=== PATIENT | male | born 1965 | race Caucasian/White ===

== ENCOUNTER 2020-08-07 09:58 | Inpatient (IN) | payer OTHER ==
[2020-08-07 10:41] LABS: Basophils # (A) 0.1 k/uL (0-0.2); Basophils % (A) 1 %; Eosinophils % (A) 1 %; HCT 54.1 % (39.0-53.0); Hypochromasia Slight; Lymphocytes # (A) 1.2 k/uL (1.0-4.8); Lymphocytes % (A) 19 %; MCH 25.8 pg (25.0-35.0); MCHC 31.5 g/dL (31.0-37.0); MCV 82.1 fL (80.0-100.0); Mean Platelet Volume 7.4; Monocytes # (A) 0.6 k/uL (0-1.0); Monocytes % (A) 10 %; Neutrophils # (A) 4.3 k/uL (1.3-7.7); Neutrophils % (A) 67 %; Platelet Count 185 k/uL (150-450); RBC 6.58 m/uL (4.30-5.90); WBC 6.4 k/uL (3.8-10.6)
--- NOTE | 2020-08-07 10:43 | ED ---
URI HPI - General Source: patient Mode of arrival: ambulatory Limitations: no limitations <Anupama Ritter - Last Filed: 08/07/20 12:16> <Shellie Fitzgerald - Last Filed: 08/10/20 19:49> - General Chief Complaint: Upper Respiratory Infection Stated Complaint: Low oxygen, sent by [email or web address] Time Seen by Provider: 08/07/20 10:10 - History of Present Illness Initial Comments: very pleasant 55-year-old male presenting today for chief complaint of shortness of breath on and off x 3 weeks with cough and fevers, and hypoxia x today. Patient states that for the past 3 weeks he has had a cough general malaise bodyaches and feels like he has had a cold. Patient states he has a very productive cough with sunil brown sputum. Patient denies history of recent hospitalizations L call abuse/aspiration. Patient states he did recently have an exposure to covert but has had these symptoms for 3 weeks. Patient denies any chest pain. Deep inspiration he states he has felt slightly short of breath he denies any leg swelling calf pain he denies history of DVT or pulmonary embolism. He states he does have history of thyroid cancer that is in "remission". He denies any active treatment. Patient denies a jaw or arm pain or back pain. Patient denies abdominal pain nausea vomiting diarrhea. Patient states he was having fevers for the past 10 days but stated "they broke last night". He states he last took alleve yesterday evening, denies taking antipyretics this morning. Patient states he was on a z-pack but finished that 5 days ago and was told by PCP if symptoms persisted after the antibiotics to come to the ER. Patient went to urgent care where he had low oxygen levels and they told him he was too big for their xray and sent him to our facility. Patient on arrival is afebrile, oyxgen 88-90% on RA. He does not appear in distress, resting comfortably. (Anupama Ritter) - Related Data Home Medications Medication Instructions Recorded Confirmed Furosemide [Lasix] 20 mg PO BID 12/17/18 08/07/20 Indomethacin [Indocin] 50 mg PO TID 12/17/18 08/07/20 Levothyroxine Sodium [Synthroid] 25 mcg PO DAILY 12/17/18 08/07/20 Levothyroxine Sodium [Synthroid] 200 mcg PO DAILY 12/17/18 08/07/20 allopurinoL [Zyloprim] 300 mg PO DAILY 12/17/18 08/07/20 Naproxen Sodium [Aleve] 220 mg PO BID PRN 08/07/20 08/07/20 Previous Rx's Medication Instructions Recorded Albuterol Inhaler [Ventolin Hfa 2 puff INHALATION RT-QID PRN #1 08/09/20 Inhaler] puff Ascorbic Acid [Vitamin C] 1,000 mg PO DAILY #30 tab 08/09/20 Cholecalciferol [Vitamin D3 (25 25 mcg PO DAILY #30 tablet 08/09/20 Mcg = 1000 Iu)] Colchicine [Colcrys] 0.6 mg PO BID #14 each 08/09/20 Enoxaparin [Lovenox] 40 mg SQ DAILY #14 syringe 08/09/20 Zinc Sulfate [Orazinc] 220 mg PO DAILY #60 cap 08/09/20 dexAMETHasone [Hexadrol] 6 mg PO DAILY #14 tab 08/09/20 Allergies Allergy/AdvReac Type Severity Reaction Status Date / Time Penicillins Allergy Rash/Hives Verified 08/07/20 12:14 Review of Systems ROS Other: All systems not noted in ROS Statement are negative. <Anupama Ritter - Last Filed: 08/07/20 12:16> ROS Other: All systems not noted in ROS Statement are negative. <Shellie Fitzgerald - Last Filed: 08/10/20 19:49> ROS Statement: Those systems with pertinent positive or pertinent negative responses have been documented in the HPI. Past Medical History Past Medical History: Hypertension, Thyroid Disorder Additional Past Medical History / Comment(s): thyroid History of Any Multi-Drug Resistant Organisms: None Reported Past Surgical History: Tonsillectomy Additional Past Surgical History / Comment(s): thyroid ca - thryoidectomy Past Psychological History: No Psychological Hx Reported Smoking Status: Never smoker Past Alcohol Use History: Occasional Past Drug Use History: None Reported <Anupama Ritter - Last Filed: 08/07/20 12:16> General Exam Limitations: no limitations <Anupama Ritter - Last Filed: 08/07/20 12:16> - General Exam Comments Initial Comments: General: The patient is awake and alert, in no distress Eye: +3 mm pupils are equal, round and reactive to light, extra-ocular mov ements are intact. No nystagmus. There is normal conjunctiva bilaterally. No signs of icterus. Ears, nose, mouth and throat: There are moist mucous membranes and no oral lesions. Neck: The neck is supple, there is no tenderness or JVD. Cardiovascular: There is a regular rate and rhythm. No murmur, rub or gallop is appreciated. Respiratory: Respirations are non-labored, breath sounds are equal. No wheezes, stridor. Scattered rhonchi. Gastrointestinal: Soft, non-distended, non-tender abdomen without masses or organomegaly noted. There is no rebound or guarding present. Musculoskeletal: Normal ROM, no tenderness. Strength 5/5. Sensation intact. Radial and DP pulses equal bilaterally 2+. Neurological: A&O x 3. CN II-XII intact grossly, There are no obvious motor or sensory deficits. Coordination appears grossly intact. Speech is normal. Skin: Skin is warm and dry and no rashes or lesions are noted. No calf pain or LE edema. Psychiatric: Cooperative, appropriate mood & affect, normal judgment. (Anupama Ritter) Course Vital Signs 08/07/20 08/07/20 08/07/20 10:02 11:16 11:57 Temperature 98.6 F Pulse Rate 60 58 L Respiratory 16 20 18 Rate Blood Pressure 167/95 147/86 O2 Sat by Pulse 90 L 94 L Oximetry 08/07/20 12:32 Temperature 98.7 F Pulse Rate Respiratory Rate Blood Pressure O2 Sat by Pulse Oximetry Medical Decision Making - Lab Data Result diagrams: 08/07/20 10:30 08/07/20 10:30 <Anupama Ritter - Last Filed: 08/07/20 12:16> - Lab Data Result diagrams: 08/07/20 10:30 08/07/20 10:30 <Shellie Fitzgerald - Last Filed: 08/10/20 19:49> - Medical Decision Making Labs stable. however patient hypoxic. covid + with covid pneumonia-patient is not in any distress. Patient does have some scattered rhonchi on lung examination. There is no retractions no abdominal breathing. Given patient was saturating at 88-90% on room air feel patient should be admitted for monitoring and steroids. Patient agreeable to admission and care plan Dr Fitzgerald agreeable to care plan. Ventricular rate 63 beats minute, MD interval 168 ms, QR administration 102 ms, QT/QTC 464/474 ms. Sinus rhythm with a sinus arrhythmia. Right axis noted nonspecific ST changes no ST elevation or depression is appreciated. (Anupama Ritter) I was available for consultation in the emergency department. The history and physical exam were done by the midlevel provider. I was consulted for this patients care. I reviewed the case with the midlevel provider and based on their presentation of the patient, I agree with the assessment, medical decision making and plan of care as documented. Chart was dictated using [employer] dictation software. Attempts were made to correct any dictation errors however some typographical errors may persist. Patient was seen during a national state of emergency due to the Covid-19 pandemic. (Shellie Fitzgerald) - Lab Data Lab Results 08/07/20 08/07/20 08/07/20 Range/Units 10:30 10:30 10:30 WBC 6.4 (3.8-10.6) k/uL RBC 6.58 H (4.30-5.90) m/uL Hgb 17.0 (13.0-17.5) gm/dL Hct 54.1 H (39.0-53.0) % MCV 82.1 (80.0-100.0) fL MCH 25.8 (25.0-35.0) pg MCHC 31.5 (31.0-37.0) g/dL RDW 15.0 (11.5-15.5) % Plt Count 185 (150-450) k/uL MPV 7.4 Neutrophils % 67 % Lymphocytes % 19 % Monocytes % 10 % Eosinophils % 1 % Basophils % 1 % Neutrophils # 4.3 (1.3-7.7) k/uL Lymphocytes # 1.2 (1.0-4.8) k/uL Monocytes # 0.6 (0-1.0) k/uL Eosinophils # 0.0 (0-0.7) k/uL Basophils # 0.1 (0-0.2) k/uL Hypochromasia Slight PT 11.0 (9.0-12.0) sec INR 1.0 (<1.2) APTT 25.0 (22.0-30.0) sec D-Dimer 1.00 H (<0.60) mg/L FEU Sodium 142 (137-145) mmol/L Potassium 4.3 (3.5-5.1) mmol/L Chloride 104 (98-107) mmol/L Carbon Dioxide 27 (22-30) mmol/L Anion Gap 11 mmol/L BUN 20 (9-20) mg/dL Creatinine 1.07 (0.66-1.25) mg/dL Est GFR (CKD-EPI)AfAm >90 (>60 ml/min/1.73 sqM) Est GFR (CKD-EPI)NonAf 78 (>60 ml/min/1.73 sqM) Glucose 103 H (74-99) mg/dL Plasma Lactic Acid Radames (0.7-2.0) mmol/L Calcium 7.6 L (8.4-10.2) mg/dL Magnesium 1.8 (1.6-2.3) mg/dL Ferritin 181.0 (22.0-322.0) ng/mL Total Bilirubin 0.7 (0.2-1.3) mg/dL AST 32 (17-59) U/L ALT 18 (4-49) U/L Alkaline Phosphatase 84 (38-126) U/L Lactate Dehydrogenase 889 H (313-618) U/L C-Reactive Protein 148.5 H (<10.0) mg/L Total Protein 6.6 (6.3-8.2) g/dL Albumin 3.4 L (3.5-5.0) g/dL Procalcitonin (0.02-0.09) ng/mL Coronavirus (PCR) (Not Detectd) 08/07/20 08/07/20 08/07/20 Range/Units 10:30 10:30 10:30 WBC (3.8-10.6) k/uL RBC (4.30-5.90) m/uL Hgb (13.0-17.5) gm/dL Hct (39.0-53.0) % MCV (80.0-100.0) fL MCH (25.0-35.0) pg MCHC (31.0-37.0) g/dL RDW (11.5-15.5) % Plt Count (150-450) k/uL MPV Neutrophils % % Lymphocytes % % Monocytes % % Eosinophils % % Basophils % % Neutrophils # (1.3-7.7) k/uL Lymphocytes # (1.0-4.8) k/uL Monocytes # (0-1.0) k/uL Eosinophils # (0-0.7) k/uL Basophils # (0-0.2) k/uL Hypochromasia PT (9.0-12.0) sec INR (<1.2) APTT (22.0-30.0) sec D-Dimer (<0.60) mg/L FEU Sodium (137-145) mmol/L Potassium (3.5-5.1) mmol/L Chloride (98-107) mmol/L Carbon Dioxide (22-30) mmol/L Anion Gap mmol/L BUN (9-20) mg/dL Creatinine (0.66-1.25) mg/dL Est GFR (CKD-EPI)AfAm (>60 ml/min/1.73 sqM) Est GFR (CKD-EPI)NonAf (>60 ml/min/1.73 sqM) Glucose (74-99) mg/dL Plasma Lactic Acid Radames 1.3 (0.7-2.0) mmol/L Calcium (8.4-10.2) mg/dL Magnesium (1.6-2.3) mg/dL Ferritin (22.0-322.0) ng/mL Total Bilirubin (0.2-1.3) mg/dL AST (17-59) U/L ALT (4-49) U/L Alkaline Phosphatase (38-126) U/L Lactate Dehydrogenase (313-618) U/L C-Reactive Protein (<10.0) mg/L Total Protein (6.3-8.2) g/dL Albumin (3.5-5.0) g/dL Procalcitonin 0.09 (0.02-0.09) ng/mL Coronavirus (PCR) Detected A (Not Detectd) Disposition Is patient prescribed a controlled substance at d/c from ED?: No Time of Disposition: 12:16 <Anupama Ritter L - Last Filed: 08/07/20 12:16> <Shellie Fitzgerald - Last Filed: 08/10/20 19:49> Clinical Impression: Hypoxia, Pneumonia due to COVID-19 virus, Cough Disposition: ADMITTED IP TO THIS HOSP Condition: Stable
[2020-08-07] MEDS ORDERED: DEXAMETHASONE SOD PHOSPHATE 4 MG/ML 1 ML VIAL IV STA (10:44)
[2020-08-07 10:54] LABS: ALT 18 U/L (4-49); AST 32 U/L (17-59); African American GFR (CKD) >90 (>60 ml/min/1.73 sqM); Albumin 3.4 g/dL (3.5-5.0); Alkaline Phosphatase 84 U/L (38-126); Anion Gap 11 mmol/L; Blood Urea Nitrogen 20 mg/dL (9-20); Calcium 7.6 mg/dL (8.4-10.2); Carbon Dioxide 27 mmol/L (22-30); Chloride 104 mmol/L (98-107); Glucose 103 mg/dL (74-99); LDH 889 U/L (313-618); Magnesium 1.8 mg/dL (1.6-2.3); Non-African American GFR(CKD) 78 (>60 ml/min/1.73 sqM); Potassium 4.3 mmol/L (3.5-5.1); Sodium 142 mmol/L (137-145); Total Bilirubin 0.7 mg/dL (0.2-1.3); Total Protein 6.6 g/dL (6.3-8.2)
[2020-08-07 11:05] LABS: C Reactive Protein 148.5 mg/L (<10.0)
--- NOTE | 2020-08-07 11:05 | XR ---
EXAMINATION TYPE: XR chest 1V portable DATE OF EXAM: 08/07/2020 Comparison: None Clinical History: 55-year-old male with low oxygen saturation, Suspected COVID-19 pneumonia Findings: Heart upper limits of normal in size. Large patient body habitus and further limitation due to AP por table technique resulting in underpenetration. There seem to be some patchy underlying opacities in t he mid and lower lungs particularly on the right. Impression: Portable exam further limited by large patient body habitus. Some underlying mid and lower lung infil trates, right greater than left are suggested.
[2020-08-07] MEDS ORDERED: PROPOFOL 10 MG/ML 20 ML VIAL IV STA (11:29)
[2020-08-07] MEDS ORDERED: ADENOSINE 3 MG/ML 2 ML VIAL IVP STA (11:29)
--- NOTE | 2020-08-07 12:09 | CT ---
EXAMINATION TYPE: CT chest angio for PE DATE OF EXAM: 08/07/2020 COMPARISON: None HISTORY: hypoxia, covid CT DLP: 1637.4 mGycm CONTRAST: CT chest with contrast and 3D reconstruction with MIP imaging is performed with IV Contrast, patient injected with 100 mL of Isovue 370. Contrast-enhanced CT of the chest was performed through the course of the pulmonary arteries with oral g and mediastinal window settings submitted. 3D reconstruction with MIP imaging was also performed. PULMONARY ARTERIES: The pulmonary arteries and their major tributaries are patent. I do not see nellie dence for sizable filling defect to suggest pulmonary embolic process. LUNGS: Scattered airspace infiltrates are seen throughout both lung burgess. Correlate for Covid 19 pn eumonia. MEDIASTINUM: Thoracic aorta is of normal caliber,however, evaluation is limited given timing of the contrast bolus. If there is concern for thoracic aortic pathology consider PRINCESS. Correlate clinicall y . The heart is not enlarged. No evidence for mediastinal mass. No mediastinal lymph nodes greater than 1cm. HILAR STRUCTURES: No evidence for mass. No hilar lymph nodes greater than 1 cm. UPPER ABDOMEN: No significant abnormality is seen. IMPRESSION: 1. No evidence for Pulmonary embolism at this time. 2.Scattered airspace infiltrates are seen throughout both lung burgess. Correlate for Covid 19 pneumon ia.
[2020-08-07] MEDS ORDERED: NALOXONE 0.4 MG/ML 1 ML VIAL IV PRN (12:15)
[2020-08-07] MEDS ORDERED: ALBUTEROL HFA INHALER INHALATION PRN (15:20)
[2020-08-07] MEDS: ENOXAPARIN 40 MG/0.4 ML SYRINGE SQ SCH (15:27)
--- NOTE | 2020-08-07 15:39 | P.HPIM ---
History of Present Illness H&P Date: 08/07/20 Chief Complaint: Shortness of breath and congestion 55 years old gentleman with past medical history of hypertension and hypothyroidism patient of Dr. Owens presents with shortness of breath, cough and fever for past few weeks. Patient was seen at the primary care [facility] few weeks back and was started on Z-Tim that he finished 5 days ago. He went to the urgent care as symptoms were not getting better. Patient underwent COVID testing that was negative but the last 2 go to the ER as patient appeared very short of breath and hypoxic. COVID testing done in the ER was positive. On evaluation today patient does describe cough, general malaise, body aches. Associated with sputum production that was brownish in color. He denies any recent hospitalization. He denies any history of DVT or pulmonary embolism. He does endorses fever of 100.8 last night. Vitals in the ER, suggested temp of 98.6 pulse 60 respiratory rate 16 blood pressure 167/95 oxygenation 90% on room air. CTA suggestive of scattered airspace insulin infiltrates in bilateral lungs suggestive of Covid pneumonia. EKG suggested a sinus rhythm with marked sinus arrhythmia right axis deviation with nonspecific ST abnormality. Patient will be started on dexamethasone 6 mg by mouth daily. Continue pro-air inhaler every 6 hours as needed for shortness of breath. Vitamin C, vitamin D and zinc added. Pulmonary consult Review of Systems Constitutional: Endorses chills, endorses fever, endorses lethargy, endorses malaise, Denies poor appetite, endorses weakness, Denies weight loss Eyes: denies decreased vision, denies diplopia, denies discharge, denies pain Ears: deny: decreased hearing Ears, nose, mouth and throat: Denies dental pain, Denies headache, Denies nasal discharge, Denies nose pain Cardiovascular: Denies chest pain, Denies decreased exercise tolerance, Denies edema, Denies high blood pressure, Denies irregular heart beat, Denies palpitations, Denies paroxysmal nocturnal dyspnea, Denies rapid heart beat, Denies shortness of breath Respiratory: Endorses congestion, endorses cough, endorses cough with sputum, endorses dyspnea, Denies home oxygen, Denies wheezing Gastrointestinal: Denies abdominal pain, Denies change in bowel habits, Denies coffee ground emesis, Denies early satiety, Denies excessive gas, Denies heartburn, Denies hematemesis, Denies hematochezia, Denies loss of appetite, Denies nausea, Denies vomiting Genitourinary: Denies dysuria, Denies flank pain, Denies kidney stones, Denies menorrhagia, Denies urgency, Denies urinary frequency Musculoskeletal: Denies gait dysfunction, Denies limitation of motion, Denies morning stiffness, Denies muscle cramps Integumentary: Denies rash, Denies wounds, Denies brittle nails, Denies change in hair/nails, Denies darkening of skin Neurological: Denies balance difficulties, Denies change in speech, Denies double vision, Denies gait dysfunction, Denies loss of vision, Denies motor disturbance, Denies numbness, Denies paralysis, Denies paresthesias, Denies seizures Psychiatric: Denies anxiety, Denies depression Endocrine: Denies excessive sweating, Denies excessive thirst, Denies high blood sugars, Denies palpitations Hematologic/Lymphatic: Denies easy bruising, Denies lymphadenopathy Past Medical History Past Medical History: Cancer, GERD/Reflux, Hypertension, Thyroid Disorder Additional Past Medical History / Comment(s): Pt tested covid + in [facility] ER on 08/07/20. Thyroid cancer with thyroidectomy, sciatica with coexisting acute pyriformis syndrome and lumbar discogenic pain R side L$-L%, lasix for bilateral lower leg/ankle edema, gout bilateral feet, past staph infections/wound base of skull/feet-pt does not recall if MRSA. History of Any Multi-Drug Resistant Organisms: None Reported Past Surgical History: Tonsillectomy Additional Past Surgical History / Comment(s): thyroid ca - thyroidectomy Past Anesthesia/Blood Transfusion Reactions: No Reported Reaction Past Psychological History: No Psychological Hx Reported Additional Psychological History / Comment(s): Pt resides with his girlfriend of 10 years. He works virtually. He is independent. Smoking Status: Never smoker Past Alcohol Use History: Occasional Past Drug Use History: None Reported - Past Family History Father History Unknown: Yes Additional Family Medical History / Comment(s): Father left when pt was 9 yrs old. Mother History Unknown: Yes Additional Family Medical History / Comment(s): Pt does not have much contact with his mother Medications and Allergies Home Medications Medication Instructions Recorded Confirmed Type Furosemide [Lasix] 20 mg PO BID 12/17/18 08/07/20 History Indomethacin [Indocin] 50 mg PO TID 12/17/18 08/07/20 History Levothyroxine Sodium [Synthroid] 25 mcg PO DAILY 12/17/18 08/07/20 History Levothyroxine Sodium [Synthroid] 200 mcg PO DAILY 12/17/18 08/07/20 History allopurinoL [Zyloprim] 300 mg PO DAILY 12/17/18 08/07/20 History Naproxen Sodium [Aleve] 220 mg PO BID PRN 08/07/20 08/07/20 History Allergies Allergy/AdvReac Type Severity Reaction Status Date / Time Penicillins Allergy Rash/Hives Verified 08/07/20 12:14 Physical Exam Vitals: Vital Signs Temp Pulse Pulse Resp BP BP Pulse Ox 08/07/20 13:59 99.4 F 53 L 18 149/86 94 L 08/07/20 12:32 98.7 F 08/07/20 11:57 58 L 18 147/86 94 L 08/07/20 11:16 20 08/07/20 10:02 98.6 F 60 16 167/95 90 L Intake and Output 08/06/20 08/07/20 08/07/20 22:59 06:59 14:59 Other: Weight 204.117 kg - Constitutional General appearance: cooperative, no acute distress, obese - EENT Eyes: anicteric sclerae, PERRLA, normal appearance ENT: hearing grossly normal - Neck Neck: no lymphadenopathy, normal ROM, no other, no rigidity, no stridor, no thyromegaly - Respiratory Respiratory: bilateral: CTA, negative: diminished, dullness, rales, rhonchi - Cardiovascular Rhythm: regular Heart sounds: normal: S1, S2 Abnormal Heart Sounds: no systolic murmur, no diastolic murmur, no rub, no S3 Gallop, no S4 Gallop, no click, no other - Gastrointestinal General gastrointestinal: normal bowel sounds, soft - Integumentary Integumentary: no rash - Neurologic Neurologic: CNII-XII intact - Musculoskeletal Musculoskeletal: gait normal, strength equal bilaterally - Psychiatric Psychiatric: A&O x's 3, appropriate affect Results CBC & Chem 7: 08/07/20 10:30 08/07/20 10:30 Labs: Abnormal Lab Results - Last 24 Hours (Table) 08/07/20 08/07/20 08/07/20 Range/Units 10:30 10:30 10:30 RBC 6.58 H (4.30-5.90) m/uL Hct 54.1 H (39.0-53.0) % D-Dimer 1.00 H (<0.60) mg/L FEU Glucose 103 H (74-99) mg/dL Calcium 7.6 L (8.4-10.2) mg/dL Lactate Dehydrogenase 889 H (313-618) U/L C-Reactive Protein 148.5 H (<10.0) mg/L Albumin 3.4 L (3.5-5.0) g/dL Coronavirus (PCR) (Not Detectd) 08/07/20 Range/Units 10:30 RBC (4.30-5.90) m/uL Hct (39.0-53.0) % D-Dimer (<0.60) mg/L FEU Glucose (74-99) mg/dL Calcium (8.4-10.2) mg/dL Lactate Dehydrogenase (313-618) U/L C-Reactive Protein (<10.0) mg/L Albumin (3.5-5.0) g/dL Coronavirus (PCR) Detected A (Not Detectd) Thrombosis Risk Factor Assmnt - DVT/VTE Prophylaxis DVT/VTE Prophylaxis: Pharmacologic Prophylaxis ordered - Choose All That Apply Any of the Below Risk Factors Present?: Yes Each Factor Represents 1 point: Age 41-60 years, Obesity (BMI >25), Serious lung disease incl. pneumonia (< 1month) Other Risk Factors: Yes Each Risk Factor Represents 2 Points: Malignancy Other congenital or acquired thrombophilia - If yes, enter type in comment: No Thrombosis Risk Factor Assessment Total Risk Factor Score: 5 Thrombosis Risk Factor Assessment Level: High Risk Assessment and Plan Plan: #1 acute hypoxic respiratory failure secondary to COVID pneumonia and CRP high LDH high d-dimer high positive for coronavirus on 08/07. Initiated on vitamin C, vitamin D, zinc and dexamethasone. Pulmonary consult placed patient would benefit from remdesiver for at least 5 days pulmonary recommendation would be appreciated. Continue Lovenox 40 subcu daily Pro-calcitonin pending #2 history of thyroid cancer status post thyroidectomy continue levothyroxine 225 mg by mouth daily #3 bilateral lower extremity edema likely secondary to varicose veins. Lasix 20 mg PO twice a day #4 htN continue Lasix 20 mg twice a day #5 gerd symptoms 20 mg by mouth daily #6 DDD with lumbar radiculopathy - Tylenol as needed for pain #7 DVT PROPHYLAXIS on Lovenox
[2020-08-07] MEDS: FUROSEMIDE 20 MG TAB PO SCH (21:41)
[2020-08-07 21:56] LABS: Appearance,Urine Clear (Clear); Bilirubin,Urine Negative (Negative); Blood,Urine Negative (Negative); Color,Urine Yellow; Glucose,Urine (UA) Negative (Negative); Ketones,Urine Negative (Negative); Leukocyte Esterase,Urine Negative (Negative); Mucus,Urine Rare /hpf; Nitrite,Urine Negative (Negative); PH, Urine 6.5 (5.0-8.0); Protein,Urine 2+ (Negative); Squamous Epithelial Cell,Urine 5 /hpf (0-4); WBC,Urine 2 /hpf (0-5)
[2020-08-07 21:57] LABS: Specific Gravity,Urine >1.050 (1.001-1.035)
[2020-08-08] MEDS: LEVOTHYROXINE 100 MCG TAB PO SCH (06:11)
[2020-08-08] MEDS: LEVOTHYROXINE 25 MCG TAB PO SCH (06:11)
[2020-08-08] MEDS: allopurinoL 300 MG TAB PO SCH (08:34)
[2020-08-08] MEDS: dexAMETHasone 2 MG TAB PO SCH (08:34)
[2020-08-08] MEDS: FUROSEMIDE 20 MG TAB PO SCH ×2 (08:34→20:20)
[2020-08-08] MEDS: ENOXAPARIN 40 MG/0.4 ML SYRINGE SQ SCH (08:34)
[2020-08-08] MEDS: CHOLECALCIFEROL 25 MCG (1000 IU) TABLET PO SCH (08:34)
[2020-08-08] MEDS: ASCORBIC ACID 500 MG TAB PO SCH (08:34)
[2020-08-08] MEDS: ZINC SULFATE 220 MG CAP PO SCH (08:34)
[2020-08-08] MEDS: COLCHICINE 0.6 MG EACH PO SCH ×2 (11:48→20:20)
--- NOTE | 2020-08-08 12:33 | P.CNPUL ---
History of Present Illness Consult date: 08/08/20 Requesting physician: Vani Amor Reason for consult: dyspnea Chief complaint: Shortness of breath, cough, fever History of present illness: This is a very pleasant 55-year-old gentleman with a known history of gout, thyroid cancer status post thyroidectomy, morbid obesity, hypertension. He presented here to the emergency room yesterday after a two-week history of fever, cough, congestion, fatigue, weakness, body aches, sore throat and headache. He had been treated previously with a Z-Tim for 5 days due to his previous history of strep throat. Chest x-ray revealed underlying mid and lower lung infiltrates right greater than left. CT angiogram revealed no evidence of pulmonary embolism. There is scattered airspace infiltrates seen throughout both lung burgess. Coronavirus by PCR is positive. White count 6.4. Hemoglobin 17.0. D-dimer 1.00. Sodium 142. Potassium 4.3. Creatinine 1.07. LDH 89. C- reactive protein 148. Pro-calcitonin 0.09. He's been initiated on Lovenox, dexamethasone, vitamin supplements. He is seen today in consultation on the regular medical floor. He is currently sitting up in bed. Awake and alert in no acute distress. Maintaining O2 saturations in the 90s on 2 L/m per nasal cannula. He is afebrile. Hemodynamically stable. Feeling quite a bit better today compared to yesterday. Review of Systems REVIEW OF SYSTEMS: CONSTITUTIONAL: Generalized weakness, fatigue. Denies any recent significant weight loss or weight gain. EYES: Denies change in vision. EARS, NOSE, MOUTH, THROAT: Positive for headaches, positive for sore throat. CARDIOVASCULAR: Denies chest pain, palpitations or syncopal episodes. RESPIRATORY: Positive for shortness of breath, cough, congestion no hemoptysis. GASTROINTESTINAL: Denies change in appetite, denies abdominal pain GENITOURINARY: Denies hematuria, denies infections. MUSKULOSKELETAL: Denies pain, denies swelling. INTEGUMENTARY: Denies rash, denies eczema. NEUROLOGICAL: Denies recent memory loss, no recent seizure activity. PSYCHIATRIC: Denies anxiety, denies depression. HEMATOLOGIC/LYMPHATIC: Denies anemia, denies enlarged lymph nodes. Past Medical History Past Medical History: Cancer, GERD/Reflux, Hypertension, Thyroid Disorder Additional Past Medical History / Comment(s): Pt tested covid + in [facility] ER on 08/07/20. Thyroid cancer with thyroidectomy, sciatica with coexisting acute pyriformis syndrome and lumbar discogenic pain R side L$-L%, lasix for bilateral lower leg/ankle edema, gout bilateral feet, past staph infections/wound base of skull/feet-pt does not recall if MRSA. History of Any Multi-Drug Resistant Organisms: None Reported Past Surgical History: Tonsillectomy Additional Past Surgical History / Comment(s): thyroid ca - thyroidectomy Past Anesthesia/Blood Transfusion Reactions: No Reported Reaction Past Psychological History: No Psychological Hx Reported Additional Psychological History / Comment(s): Pt resides with his girlfriend of 10 years. He works virtually. He is independent. Smoking Status: Never smoker Past Alcohol Use History: Occasional Past Drug Use History: None Reported - Past Family History Father History Unknown: Yes Additional Family Medical History / Comment(s): Father left when pt was 9 yrs old. Mother History Unknown: Yes Additional Family Medical History / Comment(s): Pt does not have much contact with his mother Medications and Allergies Home Medications Medication Instructions Recorded Confirmed Type Furosemide [Lasix] 20 mg PO BID 12/17/18 08/07/20 History Indomethacin [Indocin] 50 mg PO TID 12/17/18 08/07/20 History Levothyroxine Sodium [Synthroid] 25 mcg PO DAILY 12/17/18 08/07/20 History Levothyroxine Sodium [Synthroid] 200 mcg PO DAILY 12/17/18 08/07/20 History allopurinoL [Zyloprim] 300 mg PO DAILY 12/17/18 08/07/20 History Naproxen Sodium [Aleve] 220 mg PO BID PRN 08/07/20 08/07/20 History Allergies Allergy/AdvReac Type Severity Reaction Status Date / Time Penicillins Allergy Rash/Hives Verified 08/07/20 12:14 Physical Exam Vitals: Vital Signs Temp Pulse Pulse Resp BP Pulse Ox 08/08/20 10:45 97.7 F 51 L 17 123/75 93 L 08/08/20 06:01 97.9 F 47 L 20 149/67 93 L 08/08/20 02:00 98.3 F 47 L 22 145/69 94 L 08/07/20 22:30 98.1 F 58 L 20 135/78 91 L 08/07/20 17:33 98.3 F 55 L 21 159/80 93 L 08/07/20 16:24 94 L 08/07/20 13:59 99.4 F 53 L 18 149/86 94 L 08/07/20 12:32 98.7 F Intake and Output 08/07/20 08/08/20 08/08/20 22:59 06:59 14:59 Intake Total 100 100 280 Balance 100 100 280 Intake: Oral 100 100 280 Other: Voiding Method Toilet # Voids 1 1 GENERAL EXAM: Alert, obese, very pleasant 55-year-old gentleman, 2 L nasal cannula comfortable in no apparent distress. HEAD: Normocephalic. EYES: Normal reaction of pupils, equal size. NOSE: Clear with pink turbinates. THROAT: No erythema or exudates. NECK: No masses, no JVD. CHEST: No chest wall deformity. LUNGS: Equal air entry with bilateral scattered rhonchi. CVS: S1 and S2 normal with no audible murmur, regular rhythm. ABDOMEN: No hepatosplenomegaly, normal bowel sounds, no guarding or rigidity. SPINE: No scoliosis or deformity SKIN: No rashes CENTRAL NERVOUS SYSTEM: No focal deficits, tone is normal in all 4 extremities. EXTREMITIES: There is no peripheral edema. No clubbing, no cyanosis. Peripheral pulses are intact. Results - Laboratory Findings CBC and BMP: 08/07/20 10:30 08/07/20 10:30 PT/INR, D-dimer PT 11.0 sec (9.0-12.0) 08/07/20 10:30 INR 1.0 (<1.2) 08/07/20 10:30 D-Dimer 1.00 mg/L FEU (<0.60) H 08/07/20 10:30 Abnormal lab findings: Abnormal Labs 08/07/20 08/07/20 08/07/20 10:30 10:30 10:30 RBC 6.58 H Hct 54.1 H D-Dimer 1.00 H Glucose 103 H Calcium 7.6 L Lactate Dehydrogenase 889 H C-Reactive Protein 148.5 H Albumin 3.4 L Ur Specific [place] Urine Protein Ur Squamous Epith Cells Urine Mucus Coronavirus (PCR) 08/07/20 08/07/20 10:30 21:10 RBC Hct D-Dimer Glucose Calcium Lactate Dehydrogenase C-Reactive Protein Albumin Ur Specific [place] >1.050 H Urine Protein 2+ H Ur Squamous Epith Cells 5 H Urine Mucus Rare H Coronavirus (PCR) Detected A - Diagnostic Findings Chest x-ray: image reviewed CT scan - chest: image reviewed Assessment and Plan Assessment: 1 Acute hypoxic respiratory failure secondary to CoVID 19 pneumonitis 2 Elevated inflammatory marker secondary to above 3 History of gout 4 History of thyroid cancer status post thyroidectomy 5 Morbid obesity 6 Hypertension Plan: The patient was seen and evaluated by Dr. De Oliveira Chest x-ray, CAT scans and labs reviewed Continue Lovenox, dexamethasone, vitamin supplement Add colchicine 0.6 mg twice a day Repeat inflammatory markers, d-dimer in a.m. Follow-up chest x-ray in a.m. Titrate down the FiO2 as tolerated We will continue to follow make further recommendations based on his clinical status I, the cosigning physician, performed a history & physical examination of the patient. Lungs sounds with few scattered rhonchi. Maintaining good O2 saturations in the 90s on 2 L/m per nasal cannula. I discussed the assessment and plan of care with my nurse practitioner, Jacqueline Covington. I attest to the above note as dictated by her. Time with Patient: Greater than 30
--- NOTE | 2020-08-08 16:35 | P.PN ---
Subjective Progress Note Date: 08/08/20 55 years old gentleman with past medical history of hypertension and hypothyroidism patient of Dr. Owens presents with shortness of breath, cough and fever for past few weeks. Patient was seen at the primary care physician few weeks back and was started on Z-Tim that he finished 5 days ago. He went to the urgent care as symptoms were not getting better. Patient underwent COVID testing that was negative but the last 2 go to the ER as patient appeared very short of breath and hypoxic. COVID testing done in the ER was positive. On evaluation today patient does describe cough, general malaise, body aches. Associated with sputum production that was brownish in color. He denies any recent hospitalization. He denies any history of DVT or pulmonary embolism. He does endorses fever of 100.8 last night. Vitals in the ER, suggested temp of 98.6 pulse 60 respiratory rate 16 blood pressure 167/95 oxygenation 90% on room air. CTA suggestive of scattered airspace insulin infiltrates in bilateral lungs suggestive of Covid pneumonia. EKG suggested a sinus rhythm with marked sinus arrhythmia right axis deviation with nonspecific ST abnormality. Patient will be started on dexamethasone 6 mg by mouth daily. Continue pro-air inhaler every 6 hours as needed for shortness of breath. Dione min C, vitamin D and zinc added. Pulmonary consult 08/08 patient lying comfortably in bed afebrile pulse 51, respiratory rate 17 and blood pressure 123/75 oxygen saturation 93% on 2 L of oxygen. Patient does have some shortness of breath but denies any fever or chills or cough production. He feels his best since the past few days he has been sick. Patient was seen by pulmonary who recommended keeping patient in the hospital for next few days. Continue allopurinol, dexamethasone, colchicine, Lasix, zinc, vitamin D and vitamin C. If patient continues to do well a walking pulse ox can establish the need for oxygen at home. Patient is a possible discharge over the weekend Review of Systems Constitutional: Endorses chills, endorses fever, endorses lethargy, endorses malaise, Denies poor appetite, endorses weakness, Denies weight loss Eyes: denies decreased vision, denies diplopia, denies discharge, denies pain Ears: deny: decreased hearing Ears, nose, mouth and throat: Denies dental pain, Denies headache, Denies nasal discharge, Denies nose pain Cardiovascular: Denies chest pain, Denies decreased exercise tolerance, Denies edema, Denies high blood pressure, Denies irregular heart beat, Denies palpitations, Denies paroxysmal nocturnal dyspnea, Denies rapid heart beat, Denies shortness of breath Respiratory: Endorses congestion, endorses cough, endorses cough with sputum, endorses dyspnea, Denies home oxygen, Denies wheezing Gastrointestinal: Denies abdominal pain, Denies change in bowel habits, Denies coffee ground emesis, Denies early satiety, Denies excessive gas, Denies heartburn, Denies hematemesis, Denies hematochezia, Denies loss of appetite, Denies nausea, Denies vomiting Genitourinary: Denies dysuria, Denies flank pain, Denies kidney stones, Denies menorrhagia, Denies urgency, Denies urinary frequency Musculoskeletal: Denies gait dysfunction, Denies limitation of motion, Denies morning stiffness, Denies muscle cramps Integumentary: Denies rash, Denies wounds, Denies brittle nails, Denies change in hair/nails, Denies darkening of skin Neurological: Denies balance difficulties, Denies change in speech, Denies double vision, Denies gait dysfunction, Denies loss of vision, Denies motor disturbance, Denies numbness, Denies paralysis, Denies paresthesias, Denies seizures Psychiatric: Denies anxiety, Denies depression Endocrine: Denies excessive sweating, Denies excessive thirst, Denies high blood sugars, Denies palpitations Hematologic/Lymphatic: Denies easy bruising, Denies lymphadenopathy Objective - Vital Signs Vital signs: Vital Signs Temp 97.7 F 08/08/20 10:45 Pulse 51 L 08/08/20 10:45 Resp 17 08/08/20 10:45 BP 123/75 08/08/20 10:45 Pulse Ox 93 L 08/08/20 10:45 Intake & Output 08/07/20 08/08/20 08/08/20 18:59 06:59 18:59 Intake Total 200 280 Balance 200 280 Weight 204.117 kg Intake: Oral 200 280 Other: Voiding Method Toilet # Voids 1 - Exam - Constitutional General appearance: cooperative, no acute distress, obese - EENT Eyes: anicteric sclerae, PERRLA, normal appearance ENT: hearing grossly normal - Neck Neck: no lymphadenopathy, normal ROM, no other, no rigidity, no stridor, no thyromegaly - Respiratory Respiratory: bilateral: Decreased air entry no crackles - Cardiovascular Rhythm: regular Heart sounds: normal: S1, S2 Abnormal Heart Sounds: no systolic murmur, no diastolic murmur, no rub, no S3 Gallop, no S4 Gallop, no click, no other - Gastrointestinal General gastrointestinal: normal bowel sounds, soft - Integumentary Integumentary: no rash mild purplish discoloration of the toes with cold feet. Peripheral pulses were palpable - Neurologic Neurologic: CNII-XII intact - Musculoskeletal Musculoskeletal: gait normal, strength equal bilaterally - Psychiatric Psychiatric: A&O x's 3, appropriate affect - Labs CBC & Chem 7: 08/07/20 10:30 08/07/20 10:30 Labs: Abnormal Lab Results - Last 24 Hours (Table) 08/07/20 Range/Units 21:10 Ur Specific [place] >1.050 H (1.001-1.035) Urine Protein 2+ H (Negative) Ur Squamous Epith Cells 5 H (0-4) /hpf Urine Mucus Rare H (None) /hpf Assessment and Plan Plan: #1 acute hypoxic respiratory failure secondary to COVID pneumonia and CRP high LDH high d-dimer high positive for coronavirus on 08/07. Initiated on vitamin C, vitamin D, zinc and dexamethasone. Pulmonary consult placed patient would benefit from remdesiver for at least 5 days pulmonary recommendation would be appreciated. Continue Lovenox 40 subcu daily Pro-calcitonin 0.09 #2 history of thyroid cancer status post thyroidectomy continue levothyroxine 225 mg by mouth daily #3 bilateral lower extremity edema likely secondary to varicose veins. Lasix 20 mg PO twice a day #4 htN continue Lasix 20 mg twice a day #5 gerd symptoms 20 mg by mouth daily #6 DDD with lumbar radiculopathy - Tylenol as needed for pain #7 DVT PROPHYLAXIS on Lovenox #8 disposition likely discharged over the weekend
[2020-08-09] MEDS: LEVOTHYROXINE 100 MCG TAB PO SCH (05:49)
[2020-08-09] MEDS: LEVOTHYROXINE 25 MCG TAB PO SCH (05:49)
[2020-08-09] MEDS: ENOXAPARIN 40 MG/0.4 ML SYRINGE SQ SCH (08:18)
[2020-08-09] MEDS: ZINC SULFATE 220 MG CAP PO SCH (08:18)
[2020-08-09] MEDS: FUROSEMIDE 20 MG TAB PO SCH (08:19)
[2020-08-09] MEDS: COLCHICINE 0.6 MG EACH PO SCH (08:19)
[2020-08-09] MEDS: allopurinoL 300 MG TAB PO SCH (08:19)
[2020-08-09] MEDS: ASCORBIC ACID 500 MG TAB PO SCH (08:19)
[2020-08-09] MEDS: CHOLECALCIFEROL 25 MCG (1000 IU) TABLET PO SCH (08:19)
[2020-08-09] MEDS: dexAMETHasone 2 MG TAB PO SCH (08:19)
[2020-08-09 10:12] VITALS: BP 154/104; PULSE 70; RESP 18; TEMP 97.9
--- NOTE | 2020-08-09 11:16 | P.DS ---
Providers Date of admission: 08/07/20 12:17 Attending physician: Korey Sunshine Consults: 08/07/20 15:19 Consult Physician Routine Consulting Provider: Eliana Askew Consult Reason/Comments: covid pneumonia Do you want consulting provider notified?: Yes Primary care physician: [facility] Course: Subjective Progress Note Date: 08/08/20 55 years old gentleman with past medical history of hypertension and hypothyroidism patient of Dr. Owens presents with shortness of breath, cough and fever for past few weeks. Patient was seen at the primary care physician few weeks back and was started on Z-Tim that he finished 5 days ago. He went to the urgent care as symptoms were not getting better. Patient underwent COVID testing that was negative but the last 2 go to the ER as patient appeared very short of breath and hypoxic. COVID testing done in the ER was positive. On evaluation today patient does describe cough, general malaise, bod y aches. Associated with sputum production that was brownish in color. He denies any recent hospitalization. He denies any history of DVT or pulmonary embolism. He does endorses fever of 100.8 last night. Vitals in the ER, suggested temp of 98.6 pulse 60 respiratory rate 16 blood pressure 167/95 oxygenation 90% on room air. CTA suggestive of scattered airspace insulin infiltrates in bilateral lungs suggestive of Covid pneumonia. EKG suggested a sinus rhythm with marked sinus arrhythmia right axis deviation with nonspecific ST abnormality. Patient will be started on dexamethasone 6 mg by mouth daily. Continue pro-air inhaler every 6 hours as needed for shortness of breath. Vitamin C, vitamin D and zinc added. Pulmonary consult 08/08 patient lying comfortably in bed afebrile pulse 51, respiratory rate 17 and blood pressure 123/75 oxygen saturation 93% on 2 L of oxygen. Patient does have some shortness of breath but denies any fever or chills or cough production. He feels his best since the past few days he has been sick. Patient was seen by pulmonary who recommended keeping patient in the hospital for next few days. Continue allopurinol, dexamethasone, colchicine, Lasix, zinc, vitamin D and vitamin C. If patient continues to do well a walking pulse ox can establish the need for oxygen at home. Patient is a possible discharge over the weekend Review of Systems Constitutional: Endorses chills, endorses fever, endorses lethargy, endorses malaise, Denies poor appetite, endorses weakness, Denies weight loss Eyes: denies decreased vision, denies diplopia, denies discharge, denies pain Ears: deny: decreased hearing Ears, nose, mouth and throat: Denies dental pain, Denies headache, Denies nasal discharge, Denies nose pain Cardiovascular: Denies chest pain, Denies decreased exercise tolerance, Denies edema, Denies high blood pressure, Denies irregular heart beat, Denies palpitations, Denies paroxysmal nocturnal dyspnea, Denies rapid heart beat, Denies shortness of breath Respiratory: Endorses congestion, endorses cough, endorses cough with sputum, endorses dyspnea, Denies home oxygen, Denies wheezing Gastrointestinal: Denies abdominal pain, Denies change in bowel habits, Denies coffee ground emesis, Denies early satiety, Denies excessive gas, Denies heartburn, Denies hematemesis, Denies hematochezia, Denies loss of appetite, Denies nausea, Denies vomiting Genitourinary: Denies dysuria, Denies flank pain, Denies kidney stones, Denies menorrhagia, Denies urgency, Denies urinary frequency Musculoskeletal: Denies gait dysfunction, Denies limitation of motion, Denies morning stiffness, Denies muscle cramps Integumentary: Denies rash, Denies wounds, Denies brittle nails, Denies change in hair/nails, Denies darkening of skin Neurological: Denies balance difficulties, Denies change in speech, Denies double vision, Denies gait dysfunction, Denies loss of vision, Denies motor disturbance, Denies numbness, Denies paralysis, Denies paresthesias, Denies seizures Psychiatric: Denies anxiety, Denies depression Endocrine: Denies excessive sweating, Denies excessive thirst, Denies high blood sugars, Denies palpitations Hematologic/Lymphatic: Denies easy bruising, Denies lymphadenopathy Objective - Vital Signs Vital signs: Vital Signs Temp 97.7 F 08/08/20 10:45 Pulse 51 L 08/08/20 10:45 Resp 17 08/08/20 10:45 BP 123/75 08/08/20 10:45 Pulse Ox 93 L 08/08/20 10:45 Intake & Output 08/07/20 08/08/20 08/08/20 18:59 06:59 18:59 Intake Total 200 280 Balance 200 280 Weight 204.117 kg Intake: Oral 200 280 Other: Voiding Method Toilet # Voids 1 - Exam - Constitutional General appearance: cooperative, no acute distress, obese - EENT Eyes: anicteric sclerae, PERRLA, normal appearance ENT: hearing grossly normal - Neck Neck: no lymphadenopathy, normal ROM, no other, no rigidity, no stridor, no thyromegaly - Respiratory Respiratory: bilateral: Decreased air entry no crackles - Cardiovascular Rhythm: regular Heart sounds: normal: S1, S2 Abnormal Heart Sounds: no systolic murmur, no diastolic murmur, no rub, no S3 Gallop, no S4 Gallop, no click, no other - Gastrointestinal General gastrointestinal: normal bowel sounds, soft - Integumentary Integumentary: no rash mild purplish discoloration of the toes with cold feet. Peripheral pulses were palpable - Neurologic Neurologic: CNII-XII intact - Musculoskeletal Musculoskeletal: gait normal, strength equal bilaterally - Psychiatric Psychiatric: A&O x's 3, appropriate affect - Labs CBC & Chem 7: 08/07/20 10:30 08/07/20 10:30 Labs: Abnormal Lab Results - Last 24 Hours (Table) 08/07/20 Range/Units 21:10 Ur Specific [place] >1.050 H (1.001-1.035) Urine Protein 2+ H (Negative) Ur Squamous Epith Cells 5 H (0-4) /hpf Urine Mucus Rare H (None) /hpf Assessment and Plan Plan: #1 acute hypoxic respiratory failure secondary to COVID pneumonia and CRP high LDH high d-dimer high positive for coronavirus on 08/07. Initiated on vitamin C, vitamin D, zinc and dexamethasone. Pulmonary consult placed patient did not meet the criteria for remdesiver pulmonary recommendation would be appreciated. Continue Lovenox 40 subcu daily #2 history of thyroid cancer status post thyroidectomy continue levothyroxine 225 mg by mouth daily #3 bilateral lower extremity edema likely secondary to varicose veins. Lasix 20 mg PO twice a day #4 htN continue Lasix 20 mg twice a day #5 gerd symptoms 20 mg by mouth daily #6 DDD with lumbar radiculopathy - Tylenol as needed for pain #7 DVT PROPHYLAXIS on Lovenox #8 disposition likely discharged over the weekend Hospital course: Patient has done very well last 48 hours he is not hypoxic does not require any O2 did not require to be on any antiviral medication, he stable to be discharged home from the memory standpoint with send him home on dexamethasone, still on Lovenox 40 mg subcutaneous daily for the next 2 weeks, continue zinc, see and vitamin D and patient highly recommended to see his PCP in the next 3-5 days in a virtual visit to continue his quarantine from his girlfriend and any household member for the next 2 weeks. If decline or start having hypoxia was recommended to return to the hospital otherwise to follow with his primary care physician and if need pulmonary. A she'll be discharged home today. Patient Condition at Discharge: Stable Plan - Discharge Summary Discharge Rx Participant: No New Discharge Prescriptions: New Colchicine [Colcrys] 0.6 mg PO BID #14 each dexAMETHasone [Hexadrol] 6 mg PO DAILY #14 tab Zinc Sulfate [Orazinc] 220 mg PO DAILY #60 cap Albuterol Inhaler [Ventolin Hfa Inhaler] 2 puff INHALATION RT-QID PRN #1 puff PRN Reason: Shortness Of Breath Or Wheezing Ascorbic Acid [Vitamin C] 1,000 mg PO DAILY #30 tab Cholecalciferol [Vitamin D3 (25 Mcg = 1000 Iu)] 25 mcg PO DAILY #30 tablet Enoxaparin [Lovenox] 40 mg SQ DAILY #14 syringe Continue Furosemide [Lasix] 20 mg PO BID Levothyroxine Sodium [Synthroid] 25 mcg PO DAILY Levothyroxine Sodium [Synthroid] 200 mcg PO DAILY Indomethacin [Indocin] 50 mg PO TID allopurinoL [Zyloprim] 300 mg PO DAILY Naproxen Sodium [Aleve] 220 mg PO BID PRN PRN Reason: Pain Discharge Medication List Furosemide [Lasix] 20 mg PO BID 12/17/18 [History] Indomethacin [Indocin] 50 mg PO TID 12/17/18 [History] Levothyroxine Sodium [Synthroid] 25 mcg PO DAILY 12/17/18 [History] Levothyroxine Sodium [Synthroid] 200 mcg PO DAILY 12/17/18 [History] allopurinoL [Zyloprim] 300 mg PO DAILY 12/17/18 [History] Naproxen Sodium [Aleve] 220 mg PO BID PRN 08/07/20 [History] Albuterol Inhaler [Ventolin Hfa Inhaler] 2 puff INHALATION RT-QID PRN #1 puff 08/09/20 [Rx] Ascorbic Acid [Vitamin C] 1,000 mg PO DAILY #30 tab 08/09/20 [Rx] Cholecalciferol [Vitamin D3 (25 Mcg = 1000 Iu)] 25 mcg PO DAILY #30 tablet 08/09/20 [Rx] Colchicine [Colcrys] 0.6 mg PO BID #14 each 08/09/20 [Rx] Enoxaparin [Lovenox] 40 mg SQ DAILY #14 syringe 08/09/20 [Rx] Zinc Sulfate [Orazinc] 220 mg PO DAILY #60 cap 08/09/20 [Rx] dexAMETHasone [Hexadrol] 6 mg PO DAILY #14 tab 08/09/20 [Rx] Follow up Appointment(s)/Referral(s): Gabriele Martínez DO [Primary Care Provider] - 1-2 days Activity/Diet/Wound Care/Special Instructions: Pt would like influenza vaccine prior to discharge. Discharge Disposition: HOME SELF-CARE
--- NOTE | 2020-08-09 11:42 | P.PN ---
Subjective Progress Note Date: 08/09/20 Principal diagnosis: CoVID 19 infection This is a very pleasant 55-year-old gentleman with a known history of gout, thyroid cancer status post thyroidectomy, morbid obesity, hypertension. He presented here to the emergency room yesterday after a two-week history of fever, cough, congestion, fatigue, weakness, body aches, sore throat and headache. He had been treated previously with a Z-Tim for 5 days due to his previous history of strep throat. Chest x-ray revealed underlying mid and lower lung infiltrates right greater than left. CT angiogram revealed no evidence of pulmonary embolism. There is scattered airspace infiltrates seen throughout both lung burgess. Coronavirus by PCR is positive. White count 6.4. Hemoglobin 17.0. D-dimer 1.00. Sodium 142. Potassium 4.3. Creatinine 1.07. LDH 89. C- reactive protein 148. Pro-calcitonin 0.09. He's been initiated on Lovenox, dexamethasone, vitamin supplements. He is seen today in consultation on the regular medical floor. He is currently sitting up in bed. Awake and alert in no acute distress. Maintaining O2 saturations in the 90s on 2 L/m per nasal cannula. He is afebrile. Hemodynamically stable. Feeling quite a bit better today compared to yesterday. The patient is seen today 08/09/2020 in follow-up on the regular medical floor. She is currently sitting up at the bedside. Awake and alert in no acute distress. He is maintaining good O2 saturations in the 90s on room air. No worsening shortness of breath, cough or congestion. No fever, chills or night sweats. He remains on Lovenox, dexamethasone, colchicine, vitamin supplements. He is quite anxious to go home. Objective - Vital Signs Vital signs: Vital Signs Temp 97.9 F 08/09/20 10:00 Pulse 70 08/09/20 10:00 Resp 18 08/09/20 10:00 BP 154/104 08/09/20 10:00 Pulse Ox 92 L 08/09/20 10:00 Intake & Output 08/08/20 08/09/20 08/09/20 18:59 06:59 18:59 Intake Total 780 200 Balance 780 200 Intake: Oral 780 200 Other: Voiding Method Toilet Toilet Toilet # Voids 3 2 - Exam GENERAL EXAM: Alert, obese, very pleasant 55-year-old gentleman, on room air, comfortable in no apparent distress. HEAD: Normocephalic. EYES: Normal reaction of pupils, equal size. NOSE: Clear with pink turbinates. THROAT: No erythema or exudates. NECK: No masses, no JVD. CHEST: No chest wall deformity. LUNGS: Equal air entry with few bilateral scattered rhonchi. CVS: S1 and S2 normal with no audible murmur, regular rhythm. ABDOMEN: No hepatosplenomegaly, normal bowel sounds, no guarding or rigidity. SPINE: No scoliosis or deformity SKIN: No rashes CENTRAL NERVOUS SYSTEM: No focal deficits, tone is normal in all 4 extremities. EXTREMITIES: There is no peripheral edema. No clubbing, no cyanosis. Peripheral pulses are intact. - Labs CBC & Chem 7: 08/07/20 10:30 08/07/20 10:30 Labs: Microbiology - Last 24 Hours (Table) 08/07/20 12:13 Blood Culture - Preliminary Blood No Growth after 24 hours Assessment and Plan Assessment: 1 Acute hypoxic respiratory failure secondary to CoVID 19 pneumonitis, recovered and on room air 2 Elevated inflammatory marker secondary to above 3 History of gout 4 History of thyroid cancer status post thyroidectomy 5 Morbid obesity 6 Hypertension Plan: The patient was seen and evaluated by Dr. De Oliveira The patient is anxious to go home Cleared for discharge from the pulmonary standpoint Educated to return if he should develop any worsening symptoms Follow-up closely with his PCP I, the cosigning physician, performed a history & physical examination of the patient. Lungs sounds with few scattered rhonchi. Maintaining good O2 saturations in the 90s on room air. I discussed the assessment and plan of care with my nurse practitioner, Jacqueline Covington. I attest to the above note as dictated by her.
== END 2020-08-09 13:30 | disposition home or self-care (01) | DRG 177 ==
LOC: EC 09:58 → 4SSUR 12:17
PROVIDERS: ADMIT Internal Medicine Geriatric Medicine; ATTEND Internal Medicine Geriatric Medicine
DX: U07.1 COVID-19 (principal); J12.82 Pneumonia due to coronavirus disease 2019; J96.01 Acute respiratory failure with hypoxia; Z68.44 Body mass index [BMI] 60.0-69.9, adult; M54.16 Radiculopathy, lumbar region; I10 Essential (primary) hypertension; K21.9 Gastro-esophageal reflux disease without esophagitis; M10.9 Gout, unspecified; E66.01 Morbid (severe) obesity due to excess calories; E89.0 Postprocedural hypothyroidism; I83.90 Asymptomatic varicose veins of unspecified lower extremity; Z85.850 Personal history of malignant neoplasm of thyroid; Z79.890 Hormone replacement therapy; Z79.899 Other long term (current) drug therapy
CPT/HCPCS: 36415; 71045; 71275; 80053; 81001; 82728; 83605; 83615; 83735; 84145; 85025; 85379; 85610; 85730; 86140; 87040; 87635; 93005; 94760; 96365; 96375; 99285

== ENCOUNTER 2020-11-14 16:55 | Emergency (ER) | payer OTHER ==
[2020-11-14 17:04] VITALS: RESP 18; TEMP 98.2
[2020-11-14] MEDS ORDERED: ALBUTEROL HFA INHALER INHALATION STA (17:57)
--- NOTE | 2020-11-14 18:00 | ED ---
General Adult HPI - General Chief complaint: Shortness of Breath Stated complaint: Thinks he has Pneumonia Time Seen by Provider: 11/14/20 17:27 Source: patient, RN notes reviewed Mode of arrival: ambulatory Limitations: no limitations - History of Present Illness Initial comments: Patient is a pleasant 55-year-old male presenting to the emergency Department with complaints of cough and short of breath. Onset of symptoms was 3-4 days ago. Patient does have history of similar symptoms previously associated with pneumonia. No history of chronic lung disease such as asthma or COPD. Patient does have cough with productive dark yellow sputum. No fevers. Patient did have covid 19 infection approximately 3 months ago. No leg pain or leg swelling . No chest pain. - Related Data Home Medications Medication Instructions Recorded Confirmed Furosemide [Lasix] 20 mg PO BID 12/17/18 11/14/20 Indomethacin [Indocin] 50 mg PO TID PRN 12/17/18 11/14/20 Levothyroxine Sodium [Synthroid] 25 mcg PO DAILY 12/17/18 11/14/20 Levothyroxine Sodium [Synthroid] 200 mcg PO DAILY 12/17/18 11/14/20 allopurinoL [Zyloprim] 300 mg PO DAILY 12/17/18 11/14/20 Naproxen Sodium [Aleve] 880 mg PO BID PRN 08/07/20 11/14/20 Previous Rx's Medication Instructions Recorded Albuterol Inhaler [Ventolin Hfa 2 puff INHALATION RT-QID PRN #1 08/09/20 Inhaler] puff Ascorbic Acid [Vitamin C] 1,000 mg PO DAILY #30 tab 08/09/20 Cholecalciferol [Vitamin D3 (25 25 mcg PO DAILY #30 tablet 08/09/20 Mcg = 1000 Iu)] Zinc Sulfate [Orazinc] 220 mg PO DAILY #60 cap 08/09/20 Albuterol Sulfate [Albuterol 2 puff INHALATION Q6H PRN #1 11/14/20 Sulfate Hfa] inhaler predniSONE [Deltasone] 20 mg PO BID #10 tab 11/14/20 Allergies Allergy/AdvReac Type Severity Reaction Status Date / Time Penicillins Allergy Rash/Hives Verified 11/14/20 18:12 Review of Systems ROS Statement: Those systems with pertinent positive or pertinent negative responses have been documented in the HPI. ROS Other: All systems not noted in ROS Statement are negative. Constitutional: Denies: fever Eyes: Denies: eye pain ENT: Denies: ear pain Respiratory: Reports: cough, dyspnea Cardiovascular: Denies: chest pain Endocrine: Reports: fatigue Gastrointestinal: Denies: abdominal pain Genitourinary: Denies: dysuria Musculoskeletal: Denies: back pain Skin: Denies: rash Neurological: Denies: weakness Past Medical History Past Medical History: Cancer, GERD/Reflux, Hypertension, Thyroid Disorder Additional Past Medical History / Comment(s): Pt tested covid + in [facility] ER on 08/07/20. Thyroid cancer with thyroidectomy, sciatica with coexisting acute pyriformis syndrome and lumbar discogenic pain R side L$-L%, lasix for bilateral lower leg/ankle edema, gout bilateral feet, past staph infections/wound base of skull/feet-pt does not recall if MRSA. History of Any Multi-Drug Resistant Organisms: None Reported Past Surgical History: Tonsillectomy Additional Past Surgical History / Comment(s): thyroid ca - thyroidectomy Past Anesthesia/Blood Transfusion Reactions: No Reported Reaction Past Psychological History: No Psychological Hx Reported Smoking Status: Never smoker Past Alcohol Use History: Occasional Past Drug Use History: None Reported - Past Family History Father History Unknown: Yes Additional Family Medical History / Comment(s): Father left when pt was 9 yrs old. Mother History Unknown: Yes Additional Family Medical History / Comment(s): Pt does not have much contact with his mother General Exam Limitations: no limitations General appearance: alert, in no apparent distress Head exam: Present: normocephalic Eye exam: Present: normal appearance Neck exam: Present: normal inspection Respiratory exam: Present: wheezes (Mild expiratory wheeze) Cardiovascular Exam: Present: regular rate, normal rhythm GI/Abdominal exam: Present: soft. Absent: distended, tenderness Extremities exam: Present: normal inspection. Absent: pedal edema, calf tenderness Neurological exam: Present: alert Psychiatric exam: Present: normal affect, normal mood Skin exam: Present: normal color Course Vital Signs 11/14/20 11/14/20 17:00 17:50 Temperature 98.2 F Pulse Rate 65 Respiratory 18 Rate Blood Pressure 160/102 O2 Sat by Pulse 95 Oximetry EKG Findings - EKG Comments: EKG Findings:: Normal sinus rhythm with rate of 61. PA 180. QRS 94. QT 460. QTC 471. Normal axis. Septal Q waves. No acute ST change. Medical Decision Making - Medical Decision Making Patient reevaluated and resting comfortably in bed. Patient updated on results and need for follow-up. - Lab Data Result diagrams: 11/14/20 18:17 11/14/20 18:17 Lab Results 11/14/20 11/14/20 11/14/20 Range/Units 18:02 18:17 18:17 WBC 12.8 H (3.8-10.6) k/uL RBC 6.46 H (4.30-5.90) m/uL Hgb 17.1 (13.0-17.5) gm/dL Hct 56.0 H (39.0-53.0) % MCV 86.8 (80.0-100.0) fL MCH 26.5 (25.0-35.0) pg MCHC 30.5 L (31.0-37.0) g/dL RDW 16.3 H (11.5-15.5) % Plt Count 238 (150-450) k/uL MPV 8.1 Neutrophils % 74 % Lymphocytes % 12 % Monocytes % 5 % Eosinophils % 8 % Basophils % 1 % Neutrophils # 9.4 H (1.3-7.7) k/uL Lymphocytes # 1.6 (1.0-4.8) k/uL Monocytes # 0.6 (0-1.0) k/uL Eosinophils # 1.0 H (0-0.7) k/uL Basophils # 0.1 (0-0.2) k/uL Hypochromasia Slight Anisocytosis Slight PT 10.1 (9.0-12.0) sec INR 0.9 (<1.2) APTT 24.9 (22.0-30.0) sec D-Dimer (<0.60) mg/L FEU Sodium (137-145) mmol/L Potassium (3.5-5.1) mmol/L Chloride (98-107) mmol/L Carbon Dioxide (22-30) mmol/L Anion Gap mmol/L BUN (9-20) mg/dL Creatinine (0.66-1.25) mg/dL Est GFR (CKD-EPI)AfAm (>60 ml/min/1.73 sqM) Est GFR (CKD-EPI)NonAf (>60 ml/min/1.73 sqM) Glucose (74-99) mg/dL Plasma Lactic Acid Radames (0.7-2.0) mmol/L Calcium (8.4-10.2) mg/dL Total Bilirubin (0.2-1.3) mg/dL AST (17-59) U/L ALT (4-49) U/L Alkaline Phosphatase (38-126) U/L NT-Pro-B Natriuret Pep pg/mL Total Protein (6.3-8.2) g/dL Albumin (3.5-5.0) g/dL Coronavirus (PCR) Not Detected (Not Detectd) 11/14/20 11/14/20 11/14/20 Range/Units 18:17 18:17 18:17 WBC (3.8-10.6) k/uL RBC (4.30-5.90) m/uL Hgb (13.0-17.5) gm/dL Hct (39.0-53.0) % MCV (80.0-100.0) fL MCH (25.0-35.0) pg MCHC (31.0-37.0) g/dL RDW (11.5-15.5) % Plt Count (150-450) k/uL MPV Neutrophils % % Lymphocytes % % Monocytes % % Eosinophils % % Basophils % % Neutrophils # (1.3-7.7) k/uL Lymphocytes # (1.0-4.8) k/uL Monocytes # (0-1.0) k/uL Eosinophils # (0-0.7) k/uL Basophils # (0-0.2) k/uL Hypochromasia Anisocytosis PT (9.0-12.0) sec INR (<1.2) APTT (22.0-30.0) sec D-Dimer (<0.60) mg/L FEU Sodium 139 (137-145) mmol/L Potassium 4.9 (3.5-5.1) mmol/L Chloride 100 (98-107) mmol/L Carbon Dioxide 32 H (22-30) mmol/L Anion Gap 7 mmol/L BUN 20 (9-20) mg/dL Creatinine 1.07 (0.66-1.25) mg/dL Est GFR (CKD-EPI)AfAm >90 (>60 ml/min/1.73 sqM) Est GFR (CKD-EPI)NonAf 78 (>60 ml/min/1.73 sqM) Glucose 120 H (74-99) mg/dL Plasma Lactic Acid Radames 1.7 (0.7-2.0) mmol/L Calcium 8.4 (8.4-10.2) mg/dL Total Bilirubin 0.6 (0.2-1.3) mg/dL AST 40 (17-59) U/L ALT 10 (4-49) U/L Alkaline Phosphatase 86 (38-126) U/L NT-Pro-B Natriuret Pep 307 pg/mL Total Protein 6.5 (6.3-8.2) g/dL Albumin 3.7 (3.5-5.0) g/dL Coronavirus (PCR) (Not Detectd) 11/14/20 Range/Units 18:17 WBC (3.8-10.6) k/uL RBC (4.30-5.90) m/uL Hgb (13.0-17.5) gm/dL Hct (39.0-53.0) % MCV (80.0-100.0) fL MCH (25.0-35.0) pg MCHC (31.0-37.0) g/dL RDW (11.5-15.5) % Plt Count (150-450) k/uL MPV Neutrophils % % Lymphocytes % % Monocytes % % Eosinophils % % Basophils % % Neutrophils # (1.3-7.7) k/uL Lymphocytes # (1.0-4.8) k/uL Monocytes # (0-1.0) k/uL Eosinophils # (0-0.7) k/uL Basophils # (0-0.2) k/uL Hypochromasia Anisocytosis PT (9.0-12.0) sec INR (<1.2) APTT (22.0-30.0) sec D-Dimer 0.47 (<0.60) mg/L FEU Sodium (137-145) mmol/L Potassium (3.5-5.1) mmol/L Chloride (98-107) mmol/L Carbon Dioxide (22-30) mmol/L Anion Gap mmol/L BUN (9-20) mg/dL Creatinine (0.66-1.25) mg/dL Est GFR (CKD-EPI)AfAm (>60 ml/min/1.73 sqM) Est GFR (CKD-EPI)NonAf (>60 ml/min/1.73 sqM) Glucose (74-99) mg/dL Plasma Lactic Acid Radames (0.7-2.0) mmol/L Calcium (8.4-10.2) mg/dL Total Bilirubin (0.2-1.3) mg/dL AST (17-59) U/L ALT (4-49) U/L Alkaline Phosphatase (38-126) U/L NT-Pro-B Natriuret Pep pg/mL Total Protein (6.3-8.2) g/dL Albumin (3.5-5.0) g/dL Coronavirus (PCR) (Not Detectd) - Radiology Data Radiology results: image reviewed (Chest x-ray does not reveal acute process) Disposition Clinical Impression: Bronchitis Disposition: HOME SELF-CARE Condition: Stable Instructions (If sedation given, give patient instructions): Acute Bronchitis (ED) Additional Instructions: Please do follow-up with primary care physician in the next couple days for recheck. Return for difficulty breathing, fever, worsening symptoms or other concerns. Prescription has been sent to your pharmacy in [place]. Prescriptions: Albuterol Sulfate [Albuterol Sulfate Hfa] 2 puff INHALATION Q6H PRN #1 inhaler PRN Reason: Shortness Of Breath predniSONE [Deltasone] 20 mg PO BID #10 tab Is patient prescribed a controlled substance at d/c from ED?: No Referrals: Gabriele Martínez DO [Primary Care Provider] - 1-2 days Time of Disposition: 19:41
[2020-11-14 18:29] LABS: Anisocytosis Slight; Basophils # (A) 0.1 k/uL (0-0.2); Basophils % (A) 1 %; Eosinophils % (A) 8 %; HGB 17.1 gm/dL (13.0-17.5); Hypochromasia Slight; Lymphocytes # (A) 1.6 k/uL (1.0-4.8); Lymphocytes % (A) 12 %; MCH 26.5 pg (25.0-35.0); MCHC 30.5 g/dL (31.0-37.0); MCV 86.8 fL (80.0-100.0); Mean Platelet Volume 8.1; Monocytes # (A) 0.6 k/uL (0-1.0); Monocytes % (A) 5 %; Neutrophils # (A) 9.4 k/uL (1.3-7.7); Neutrophils % (A) 74 %; Platelet Count 238 k/uL (150-450); RBC 6.46 m/uL (4.30-5.90); RDW 16.3 % (11.5-15.5); WBC 12.8 k/uL (3.8-10.6)
[2020-11-14 18:41] LABS: ALT 10 U/L (4-49); AST 40 U/L (17-59); African American GFR (CKD) >90 (>60 ml/min/1.73 sqM); Albumin 3.7 g/dL (3.5-5.0); Alkaline Phosphatase 86 U/L (38-126); Anion Gap 7 mmol/L; Blood Urea Nitrogen 20 mg/dL (9-20); Calcium 8.4 mg/dL (8.4-10.2); Carbon Dioxide 32 mmol/L (22-30); Chloride 100 mmol/L (98-107); Glucose 120 mg/dL (74-99); Non-African American GFR(CKD) 78 (>60 ml/min/1.73 sqM); Sodium 139 mmol/L (137-145); Total Bilirubin 0.6 mg/dL (0.2-1.3); Total Protein 6.5 g/dL (6.3-8.2)
--- NOTE | 2020-11-14 18:42 | XR ---
EXAMINATION TYPE: XR chest 2V DATE OF EXAM: 11/14/2020 COMPARISON: NONE HISTORY: Hypoxemia TECHNIQUE: 2 views FINDINGS: There is no heart failure nor confluent pneumonic infiltrate. Costophrenic angles are clear . There are no hilar masses. IMPRESSION: No active cardiopulmonary disease. Normal heart. No adverse change.
[2020-11-14 18:52] LABS: Potassium 4.9 mmol/L (3.5-5.1)
[2020-11-14 19:22] LABS: INR 0.9 (<1.2); Partial Thromboplastin Time 24.9 sec (22.0-30.0); Prothrombin Time 10.1 sec (9.0-12.0)
[2020-11-14 20:01] VITALS: BP 161/90; PULSE 62
== END 2020-11-14 20:33 | disposition home or self-care (01) ==
LOC: EC 16:55
DX: J40 Bronchitis, not specified as acute or chronic (principal); K21.9 Gastro-esophageal reflux disease without esophagitis; I10 Essential (primary) hypertension; E07.9 Disorder of thyroid, unspecified; M10.9 Gout, unspecified; Z90.09 Acquired absence of other part of head and neck; Z85.850 Personal history of malignant neoplasm of thyroid
CPT/HCPCS: 36415; 71046; 80053; 83605; 83880; 85025; 85379; 85610; 85730; 87635; 93005; 94640; 99285

== ENCOUNTER 2021-08-10 17:02 | Inpatient (IN) | payer OTHER ==
[2021-08-10] MEDS ORDERED: KETOROLAC 30 MG/ML 1 ML VIAL IVP STA (17:49)
[2021-08-10] MEDS ORDERED: hydrALAZINE HCL 20 MG/ML 1 ML VIAL IVP STA (17:49)
--- NOTE | 2021-08-10 17:53 | ED ---
General Adult HPI - General Chief complaint: Shortness of Breath Stated complaint: RONNIE Time Seen by Provider: 08/10/21 17:05 Source: patient, RN notes reviewed, old records reviewed Mode of arrival: ambulatory Limitations: no limitations - History of Present Illness Initial comments: This is a 56-year-old male who presents emergency Department with a history of pedal edema, a remote history of thyroid cancer, bradycardia and morbid obesity. Patient comes in today complaining of difficulty breathing over the last couple of weeks but over the last 3 days been considerably worse. states on occasion his lips turned blue and he has hallucinated and becomes very dyspneic. Patient denies any fever chills or cough patient denies any chest pain or palpitations. Patient does admit that he has been extremely short of breath over the last 3 days and this morning he was doing terrible when his lips are blue and he was hallucinating. Patient denies any abdominal pain patient denies any nausea vomiting. Patient denies any injury or trauma. Patient denies any history of smoking. Patient denies any history of clots. - Related Data Home Medications Medication Instructions Recorded Confirmed Furosemide [Lasix] 20 mg PO BID 12/17/18 08/10/21 Indomethacin [Indocin] 50 mg PO BID 12/17/18 08/10/21 Levothyroxine Sodium [Synthroid] 25 mcg PO DAILY 12/17/18 08/10/21 Levothyroxine Sodium [Synthroid] 200 mcg PO DAILY 12/17/18 08/10/21 allopurinoL [Zyloprim] 300 mg PO DAILY 12/17/18 08/10/21 Allergies Allergy/AdvReac Type Severity Reaction Status Date / Time Penicillins Allergy Rash/Hives Verified 08/10/21 18:15 Review of Systems ROS Statement: Those systems with pertinent positive or pertinent negative responses have been documented in the HPI. ROS Other: All systems not noted in ROS Statement are negative. Past Medical History Past Medical History: Cancer, GERD/Reflux, Hypertension, Thyroid Disorder Additional Past Medical History / Comment(s): Pt tested covid + in [facility] ER on 08/07/20. Thyroid cancer with thyroidectomy, sciatica with coexisting acute pyriformis syndrome and lumbar discogenic pain R side L$-L%, lasix for bilateral lower leg/ankle edema, gout bilateral feet, past staph infections/wound base of skull/feet-pt does not recall if MRSA. History of Any Multi-Drug Resistant Organisms: None Reported Past Surgical History: Tonsillectomy Additional Past Surgical History / Comment(s): thyroid ca - thyroidectomy Past Anesthesia/Blood Transfusion Reactions: No Reported Reaction Past Psychological History: No Psychological Hx Reported Smoking Status: Never smoker Past Alcohol Use History: Occasional Past Drug Use History: None Reported - Past Family History Father History Unknown: Yes Additional Family Medical History / Comment(s): Father left when pt was 9 yrs old. Mother History Unknown: Yes Additional Family Medical History / Comment(s): Pt does not have much contact with his mother General Exam - General Exam Comments Initial Comments: GENERAL: Patient is well-developed and well-nourished. Patient is nontoxic and well- hydrated and is in mild distress. Pulse ox 91% on 5 L ENT: Neck is soft and supple. No significant lymphadenopathy is noted. Oropharynx is clear. Moist mucous membranes. Neck has full range of motion without eliciting any pain. EYES: The sclera were anicteric and conjunctiva were pink and moist. Extraocular movements were intact and pupils were equal round and reactive to light. Eyelids were unremarkable. PULMONARY: Patient is significantly decreased breath sounds in the bases bilaterally CARDIOVASCULAR: There is a regular rate and rhythm without any murmurs gallops or rubs. ABDOMEN: Soft and nontender with normal bowel sounds. SKIN: Skin is clear with no lesions or rashes and otherwise unremarkable. NEUROLOGIC: Patient is alert and oriented x3. Cranial nerves II through XII are grossly intact. Motor and sensory are also intact. Normal speech, volume and content. Symmetrical smile. MUSCULOSKELETAL: Normal extremities with adequate strength and full range of motion. Patient has pedal edema bilaterally 1+ LYMPHATICS: No significant lymphadenopathy is noted PSYCHIATRIC: Normal psychiatric evaluation. Limitations: no limitations Course Vital Signs 08/10/21 08/10/21 08/10/21 17:05 17:35 17:41 Temperature 97.7 F Pulse Rate 56 L 58 L Respiratory 22 20 20 Rate Blood Pressure 201/92 188/107 O2 Sat by Pulse 85 L 91 L Oximetry 08/10/21 08/10/21 18:25 20:22 Temperature Pulse Rate 59 L 63 Respiratory 18 18 Rate Blood Pressure 167/91 139/77 O2 Sat by Pulse 95 93 L Oximetry Medical Decision Making - Medical Decision Making EKG shows sinus bradycardia at 56 bpm OR interval is 197 QRS is 92 QT interval is 453 QTC is 444. Patient's EKG shows no ST segment elevation or depression. Patient states he has always been told his heart rate is very low. CAT scan showed some slight opacities consistent with atelectasis versus ulnar edema. Patient was given Lasix at this time. Patient was put on BiPAP because his pCO2. Patient also received Synthroid IV. I spoke with Dr. Tena he agreed to admit the patient admitted the patient wrote admitting orders. I back into reevaluate the patient was satting at 95% and I woke him up he stated he felt considerably better. I spoke with Dr. De Oliveira he accepts the patient to the ICU. - Lab Data Result diagrams: 08/10/21 17:51 08/10/21 17:51 Lab Results 08/10/21 08/10/21 08/10/21 Range/Units 17:51 17:51 17:51 WBC 12.7 H (3.8-10.6) k/uL RBC 6.90 H (4.30-5.90) m/uL Hgb 16.7 (13.0-17.5) gm/dL Hct 58.7 H* (39.0-53.0) % MCV 85.0 (80.0-100.0) fL MCH 24.2 L (25.0-35.0) pg MCHC 28.4 L (31.0-37.0) g/dL RDW 18.0 H (11.5-15.5) % Plt Count 261 (150-450) k/uL MPV 8.4 Neutrophils % 80 % Lymphocytes % 12 % Monocytes % 5 % Eosinophils % 2 % Basophils % 1 % Neutrophils # 10.2 H (1.3-7.7) k/uL Lymphocytes # 1.5 (1.0-4.8) k/uL Monocytes # 0.6 (0-1.0) k/uL Eosinophils # 0.2 (0-0.7) k/uL Basophils # 0.2 (0-0.2) k/uL Manual Slide Review Performed Toxic Vacuolation Present Hypochromasia Marked Poikilocytosis (manual Present Anisocytosis Slight PT 11.6 (9.0-12.0) sec INR 1.1 (<1.2) APTT 26.8 (22.0-30.0) sec D-Dimer 0.55 (<0.60) mg/L FEU Sample Site ABG pH (7.35-7.45) ABG pCO2 (35-45) mmHg ABG pO2 (83-108) mmHg ABG HCO3 (21-25) mmol/L ABG Total CO2 (19-24) mmol/L ABG O2 Saturation (94-97) % ABG Base Excess mmol/L Sukhdeep Test FiO2 % Sodium 137 (137-145) mmol/L Potassium 5.0 (3.5-5.1) mmol/L Chloride 94 L (98-107) mmol/L Carbon Dioxide 35 H (22-30) mmol/L Anion Gap 8 mmol/L BUN 27 H (9-20) mg/dL Creatinine 1.16 (0.66-1.25) mg/dL Est GFR (CKD-EPI)AfAm 81 (>60 ml/min/1.73 sqM) Est GFR (CKD-EPI)NonAf 70 (>60 ml/min/1.73 sqM) Glucose 100 H (74-99) mg/dL Plasma Lactic Acid Radames (0.7-2.0) mmol/L Calcium 8.7 (8.4-10.2) mg/dL Magnesium 2.5 H (1.6-2.3) mg/dL Total Bilirubin 1.1 (0.2-1.3) mg/dL AST 35 (17-59) U/L ALT 16 (4-49) U/L Alkaline Phosphatase 93 (38-126) U/L Troponin I (0.000-0.034) ng/mL NT-Pro-B Natriuret Pep pg/mL Total Protein 7.4 (6.3-8.2) g/dL Albumin 3.9 (3.5-5.0) g/dL TSH 42.200 H (0.465-4.680) mIU/L Free T4 0.19 L (0.78-2.19) ng/dL Coronavirus (PCR) (Not Detectd) 08/10/21 08/10/21 08/10/21 Range/Units 17:51 17:51 17:51 WBC (3.8-10.6) k/uL RBC (4.30-5.90) m/uL Hgb (13.0-17.5) gm/dL Hct (39.0-53.0) % MCV (80.0-100.0) fL MCH (25.0-35.0) pg MCHC (31.0-37.0) g/dL RDW (11.5-15.5) % Plt Count (150-450) k/uL MPV Neutrophils % % Lymphocytes % % Monocytes % % Eosinophils % % Basophils % % Neutrophils # (1.3-7.7) k/uL Lymphocytes # (1.0-4.8) k/uL Monocytes # (0-1.0) k/uL Eosinophils # (0-0.7) k/uL Basophils # (0-0.2) k/uL Manual Slide Review Toxic Vacuolation Hypochromasia Poikilocytosis (manual Anisocytosis PT (9.0-12.0) sec INR (<1.2) APTT (22.0-30.0) sec D-Dimer (<0.60) mg/L FEU Sample Site ABG pH (7.35-7.45) ABG pCO2 (35-45) mmHg ABG pO2 (83-108) mmHg ABG HCO3 (21-25) mmol/L ABG Total CO2 (19-24) mmol/L ABG O2 Saturation (94-97) % ABG Base Excess mmol/L Sukhdeep Test FiO2 % Sodium (137-145) mmol/L Potassium (3.5-5.1) mmol/L Chloride (98-107) mmol/L Carbon Dioxide (22-30) mmol/L Anion Gap mmol/L BUN (9-20) mg/dL Creatinine (0.66-1.25) mg/dL Est GFR (CKD-EPI)AfAm (>60 ml/min/1.73 sqM) Est GFR (CKD-EPI)NonAf (>60 ml/min/1.73 sqM) Glucose (74-99) mg/dL Plasma Lactic Acid Radames 2.0 (0.7-2.0) mmol/L Calcium (8.4-10.2) mg/dL Magnesium (1.6-2.3) mg/dL Total Bilirubin (0.2-1.3) mg/dL AST (17-59) U/L ALT (4-49) U/L Alkaline Phosphatase (38-126) U/L Troponin I 0.013 (0.000-0.034) ng/mL NT-Pro-B Natriuret Pep 603 pg/mL Total Protein (6.3-8.2) g/dL Albumin (3.5-5.0) g/dL TSH (0.465-4.680) mIU/L Free T4 (0.78-2.19) ng/dL Coronavirus (PCR) (Not Detectd) 08/10/21 08/10/21 Range/Units 18:14 18:40 WBC (3.8-10.6) k/uL RBC (4.30-5.90) m/uL Hgb (13.0-17.5) gm/dL Hct (39.0-53.0) % MCV (80.0-100.0) fL MCH (25.0-35.0) pg MCHC (31.0-37.0) g/dL RDW (11.5-15.5) % Plt Count (150-450) k/uL MPV Neutrophils % % Lymphocytes % % Monocytes % % Eosinophils % % Basophils % % Neutrophils # (1.3-7.7) k/uL Lymphocytes # (1.0-4.8) k/uL Monocytes # (0-1.0) k/uL Eosinophils # (0-0.7) k/uL Basophils # (0-0.2) k/uL Manual Slide Review Toxic Vacuolation Hypochromasia Poikilocytosis (manual Anisocytosis PT (9.0-12.0) sec INR (<1.2) APTT (22.0-30.0) sec D-Dimer (<0.60) mg/L FEU Sample Site RAD ABG pH 7.31 L (7.35-7.45) ABG pCO2 79 H* (35-45) mmHg ABG pO2 90 (83-108) mmHg ABG HCO3 40 H* (21-25) mmol/L ABG Total CO2 43 H (19-24) mmol/L ABG O2 Saturation 95.6 (94-97) % ABG Base Excess 13.8 mmol/L Sukhdeep Test Yes FiO2 44 % Sodium (137-145) mmol/L Potassium (3.5-5.1) mmol/L Chloride (98-107) mmol/L Carbon Dioxide (22-30) mmol/L Anion Gap mmol/L BUN (9-20) mg/dL Creatinine (0.66-1.25) mg/dL Est GFR (CKD-EPI)AfAm (>60 ml/min/1.73 sqM) Est GFR (CKD-EPI)NonAf (>60 ml/min/1.73 sqM) Glucose (74-99) mg/dL Plasma Lactic Acid Radames (0.7-2.0) mmol/L Calcium (8.4-10.2) mg/dL Magnesium (1.6-2.3) mg/dL Total Bilirubin (0.2-1.3) mg/dL AST (17-59) U/L ALT (4-49) U/L Alkaline Phosphatase (38-126) U/L Troponin I (0.000-0.034) ng/mL NT-Pro-B Natriuret Pep pg/mL Total Protein (6.3-8.2) g/dL Albumin (3.5-5.0) g/dL TSH (0.465-4.680) mIU/L Free T4 (0.78-2.19) ng/dL Coronavirus (PCR) Not Detected (Not Detectd) Critical Care Time Critical Care Time: Yes Total Critical Care Time: 35 Disposition Clinical Impression: Hypertensive urgency, Bradycardia, Hypothyroid, Hypercapnia Disposition: ADMITTED IP TO THIS [facility] Time of Disposition: 20:45
[2021-08-10 18:09] LABS: Anisocytosis Slight; Basophils # (A) 0.2 k/uL (0-0.2); Basophils % (A) 1 %; Eosinophils # (A) 0.2 k/uL (0-0.7); Eosinophils % (A) 2 %; HGB 16.7 gm/dL (13.0-17.5); Hypochromasia Marked; Lymphocytes # (A) 1.5 k/uL (1.0-4.8); Lymphocytes % (A) 12 %; MCH 24.2 pg (25.0-35.0); MCHC 28.4 g/dL (31.0-37.0); Mean Platelet Volume 8.4; Monocytes # (A) 0.6 k/uL (0-1.0); Monocytes % (A) 5 %; Neutrophils # (A) 10.2 k/uL (1.3-7.7); Neutrophils % (A) 80 %; Platelet Count 261 k/uL (150-450); WBC 12.7 k/uL (3.8-10.6)
[2021-08-10 18:21] LABS: ALT 16 U/L (4-49); African American GFR (CKD) 81 (>60 ml/min/1.73 sqM); Albumin 3.9 g/dL (3.5-5.0); Anion Gap 8 mmol/L; Blood Urea Nitrogen 27 mg/dL (9-20); Calcium 8.7 mg/dL (8.4-10.2); Carbon Dioxide 35 mmol/L (22-30); Chloride 94 mmol/L (98-107); Glucose 100 mg/dL (74-99); Non-African American GFR(CKD) 70 (>60 ml/min/1.73 sqM); Sodium 137 mmol/L (137-145); Total Bilirubin 1.1 mg/dL (0.2-1.3); Total Protein 7.4 g/dL (6.3-8.2)
--- NOTE | 2021-08-10 18:21 | XR ---
EXAMINATION TYPE: XR chest 2V DATE OF EXAM: 08/10/2021 COMPARISON: 11/14/2020 HISTORY: Difficulty breathing TECHNIQUE: Frontal and lateral views of the chest are obtained. FINDINGS: There is moderate interstitial edema with superimposed diffuse hazy opacity. No pleural ef fusion, or pneumothorax seen. The cardiac silhouette size is enlarged. The osseous structures are intact. IMPRESSION: CHF
[2021-08-10 18:23] LABS: AST 35 U/L (17-59); Alkaline Phosphatase 93 U/L (38-126); Magnesium 2.5 mg/dL (1.6-2.3)
[2021-08-10 18:27] LABS: INR 1.1 (<1.2); Partial Thromboplastin Time 26.8 sec (22.0-30.0); Prothrombin Time 11.6 sec (9.0-12.0)
[2021-08-10 18:43] LABS: ABG Base Excess 13.8 mmol/L; ABG Oxygen Saturation 95.6 % (94-97); ABG PH 7.31 (7.35-7.45); ABG PO2 90 mmHg (83-108); ABG TCO2 43 mmol/L (19-24); Allen Test Performed? Yes
[2021-08-10 18:44] LABS: HCT 58.7 % (39.0-53.0)
[2021-08-10 18:48] LABS: ABG HCO3 40 mmol/L (21-25); ABG PCO2 79 mmHg (35-45)
[2021-08-10 19:05] LABS: Poikilocytosis (M) Present; Toxic Vacuolation Present
[2021-08-10] MEDS ORDERED: LORazepam 2 MG/ML INJ IV STA (19:07)
[2021-08-10 19:40] LABS: T4, Free (Free Thyroxine) 0.19 ng/dL (0.78-2.19)
--- NOTE | 2021-08-10 20:37 | CT ---
EXAMINATION TYPE: CT chest wo con DATE OF EXAM: 08/10/2021 COMPARISON: Same-day radiographs. CT 08/07/2020. HISTORY: Infiltrate vs heart failure. Hx Covid. CT DLP: 1603 mGycm. Automated Exposure Control for Dose Reduction was Utilized. TECHNIQUE: CT scan of the thorax is performed without IV contrast. FINDINGS: LUNGS: There is bilateral diffuse mild hazy and streaky opacities, most pronounced in the lower lobes . There is small right pleural effusion. Mild right lower lobe pleural thickening seen and most likel y represent chronic change. Azygos lobe noted. No pneumothorax seen. The tracheobronchial tree is pa tent. MEDIASTINUM: Lack of IV contrast is noted to limit evaluation for mediastinal and especially hilar ad enopathy. There are no definitive greater than 1 cm hilar or mediastinal lymph nodes. Mild cardiomega ly. No significant pericardial effusion is seen. OTHER: No additional significant abnormality is seen. IMPRESSION: Bilateral diffuse mild to moderate opacities with small right pleural effusion. Pattern favors inters titial edema versus atelectasis. Superimposed infiltrates cannot be entirely excluded.
[2021-08-10] MEDS ORDERED: FUROSEMIDE 10 MG/ML 4 ML VIAL IV STA (20:41)
[2021-08-10 20:59] LABS: ABG Base Excess 15.3 mmol/L; ABG Oxygen Saturation 90.3 % (94-97); ABG PH 7.25 (7.35-7.45); ABG PO2 70 mmHg (83-108); ABG TCO2 45 mmol/L (19-24); Allen Test Performed? Yes
[2021-08-10] MEDS ORDERED: HYDROCORTISONE SUCCINATE 100 MG/2 ML VIAL IV STA (21:18)
[2021-08-10 21:19] LABS: ABG HCO3 43 mmol/L (21-25); ABG PCO2 96 mmHg (35-45)
[2021-08-10 22:03] LABS: ABG Base Excess 14.9 mmol/L; ABG Oxygen Saturation 98.5 % (94-97); ABG PH 7.26 (7.35-7.45); ABG PO2 142 mmHg (83-108); ABG TCO2 45 mmol/L (19-24); Allen Test Performed? Yes
[2021-08-10 22:10] LABS: ABG PCO2 94 mmHg (35-45)
[2021-08-10 22:11] LABS: ABG HCO3 42 mmol/L (21-25)
[2021-08-10] MEDS ORDERED: LEVOTHYROXINE IVP 100 MCG/5 ML VIAL IV STA (22:25)
[2021-08-11 00:28] LABS: Glucose,Whole Blood 117 mg/dL (75-99)
[2021-08-11 06:31] LABS: ABG Oxygen Saturation 94.6 % (94-97); ABG PH 7.26 (7.35-7.45); ABG PO2 82 mmHg (83-108); ABG TCO2 44 mmol/L (19-24); Allen Test Performed? Yes
[2021-08-11 06:33] LABS: ABG HCO3 41 mmol/L (21-25); ABG PCO2 91 mmHg (35-45)
[2021-08-11 06:38] LABS: Anisocytosis Slight; Basophils # (A) 0.1 k/uL (0-0.2); Basophils % (A) 1 %; Eosinophils % (A) 0 %; HGB 16.8 gm/dL (13.0-17.5); Hypochromasia Marked; Lymphocytes # (A) 0.9 k/uL (1.0-4.8); Lymphocytes % (A) 6 %; MCH 24.3 pg (25.0-35.0); MCHC 28.3 g/dL (31.0-37.0); Mean Platelet Volume 8.2; Monocytes # (A) 0.5 k/uL (0-1.0); Monocytes % (A) 3 %; Neutrophils # (A) 13.1 k/uL (1.3-7.7); Neutrophils % (A) 90 %; Platelet Count 242 k/uL (150-450); WBC 14.6 k/uL (3.8-10.6)
[2021-08-11 06:42] LABS: HCT 59.4 % (39.0-53.0)
[2021-08-11 06:56] LABS: Albumin 3.5 g/dL (3.5-5.0); Calcium 8.5 mg/dL (8.4-10.2); Potassium 5.1 mmol/L (3.5-5.1); Total Bilirubin 0.9 mg/dL (0.2-1.3); Total Protein 6.7 g/dL (6.3-8.2)
[2021-08-11] MEDS ORDERED: LEVOTHYROXINE IVP 100 MCG/5 ML VIAL IV ONE (08:00)
--- NOTE | 2021-08-11 08:15 | XR ---
EXAMINATION TYPE: XR chest 1V portable DATE OF EXAM: 08/11/2021 COMPARISON: Chest x-ray and CT 08/10/2021 HISTORY: Shortness of breath TECHNIQUE: Single frontal view of the chest is obtained. FINDINGS: The heart is enlarged. Interstitium and central vascularity are prominent. There is no nellie dent pneumothorax or sizable pleural effusion. Exam somewhat limited by patient body habitus. IMPRESSION: Correlate for pulmonary venous hypertension and interstitial edema, congestive heart lamont lure
[2021-08-11] MEDS: HYDROCORTISONE SUCCINATE 100 MG/2 ML VIAL IV SCH ×2 (08:18→20:36)
[2021-08-11] MEDS ORDERED: amLODIPine 5 MG TAB PO SCH (09:00)
[2021-08-11] MEDS ORDERED: FUROSEMIDE 10 MG/ML 4 ML VIAL IV STA (09:35)
--- NOTE | 2021-08-11 09:59 | ECHOF ---
Referral Reason:assess lungs MEASUREMENTS -------- HEIGHT: 182.9 cm WEIGHT: 226.8 kg BP: FINDINGS -------- Sinus rhythm. This was a technically difficult study with suboptimal views. Pt is Morbid Obese TDS study even wit h Sally. Overall left ventricular systolic function is normal with, an EF between 55 - 60 %. The RV was not well visualized. The left atrium was not well visualized. The right atrium was not well visualized. The aortic valve was not well visualized. The mitral valve was not well visualized. The tricuspid valve was not well visualized. The pulmonic valve was not well visualized. There is a small, generalized pericardial effusion present. CONCLUSIONS -------- 1. Pt is Morbid Obese TDS study even with Luaason. 2. Overall left ventricular systolic function is normal with, an EF between 55 - 60 %. 3. The aortic valve was not well visualized. 4. The mitral valve was not well visualized. 5. The tricuspid valve was not well visualized. 6. The pulmonic valve was not well visualized. 7. There is a small, generalized pericardial effusion present. SUPERVISOR DATA PROCESSING: Amberly Smith, JUAN DIEGO
--- NOTE | 2021-08-11 10:01 | CONS ---
CONSULTATION Braxton Boss is a 56-year-old morbidly obese patient of Dr. Martínez who came into the emergency room with complaints of having increasing shortness of breath and was found to be in impending hypercapnic respiratory failure. He also complained of some lower extremity edema. He has chronic hypothyroidism after thyroid cancer surgery, details unavailable, morbid obesity, probable undiagnosed or untreated obstructive sleep apnea syndrome and hypercapnia with his issues. After arrival in the hospital, he has been placed on a BiPAP. He feels somewhat better. He is resting comfortably with the BiPAP on. His laboratory data suggest an elevation TSH of 42. Free T4 is low. Troponin is equivocal. Patient has what seems to be obstructive sleep apnea syndrome underlying. He is COVID negative. At the time of my evaluation, he is actually resting comfortably. His PCO2 content is in the 90s based on a blood gas last night. Renal function appears to be normal. He does not have any chest pain. His shortness of breath has improved. He has no palpitations. He is in a sinus rhythm, sinus bradycardia. PAST MEDICAL HISTORY: 1. History of thyroid cancer, details unclear. He is on replacement therapy but obviously hypothyroid. 2. Morbid obesity. 3. History of degenerative joint disease. MEDICATIONS: Medications at home include Synthroid 225 mcg daily, Lasix 20 mg b.i.d., Indocin and allopurinol. ALLERGIES: PENICILLIN. PHYSICAL EXAMINATION: On examination, blood pressure is 150/90, pulse rate is 58 per minute, sinus. HEENT unremarkable. Fundus was not examined by me. JVD could not be assessed. Neck is short and thick. Heart exam reveals S1, S2 heard normally. No significant murmurs. Lungs reveal bilateral air entry. Abdomen is distended. Lower extremities reveal trace edema, diminished pulses. Central nervous system: Grossly no focal deficits. EKG revealed baseline artifact, sinus mechanism, poor R-wave progression. No acute changes. IMPRESSION: 1. Hypercapnic respiratory failure, on BiPAP. 2. Probable obstructive sleep apnea with polycythemia secondary to it. 3. Obesity. 4. History of probable pulmonary hypertension. RECOMMENDATIONS: I am recommending amlodipine orally. Echo to be performed at bedside. Will increase the Synthroid to 250 mcg daily. Overall from a cardiac standpoint no aggressive intervention. We will first make him euthyroid and address his respiratory failure. Advised portable echo. Thank you very much for the consult. MMJULIAL / IJN: [id number] /
--- NOTE | 2021-08-11 12:25 | P.HPIM ---
History of Present Illness H&P Date: 08/11/21 HISTORY OF PRESENT ILLNESS This is a 56-year-old male patient of Dr. Martínez with past medical history of thyroid cancer status post thyroidectomy, gastroesophageal reflux disease, hypertension, sciatica, chronic gout, generalized osteoarthritis, Covid positive and July 2020. And having increased difficulty at night. His noticed that his lips turned blue and he was hallucinating and EMS was called and he was brought into [facility] emergency center for evaluation. Patient does not have a CPAP at home and has not been tested for sleep apnea. He gives history that he was following with staff psychiatrist but that physician had retired and he was unable to get his thyroid medication from the new physician. He last saw his PCP 6 months ago. His girlfriend normally handles his medications and he has not been taking them for the past month. Patient was found to be afebrile, heart rate in the 50s, blood pressure initially to let her in , pulse ox 85% EKG was sinus bradycardia with no acute ST changes. WBC 12.7, hemoglobin 16.7, platelet count 261. Sodium 137, potassium 5.0, chloride 94, CO2 35, BUN 27 creatinine 1.16, blood sugar 100. INR 1.1. Magnesium 2.5. Liver function tests were normal. TSH 42.2, free T4 0.19. Albumin 3.9. Lactic acid 2. Troponin 0.013. ProBNP 603. ABGs pH 7.31, pCO2 79, PaO2 90, bicarbonate 40, CO2 43 O2 saturation 95, base excess to keep foot 8. Coronavirus PCR not detected. Analysis showed 2+ protein. Chest x-ray reveals CHF. Repeat chest x-ray reveals correlate for pulmonary venous hypertension and interstitial edema, congestive heart failure. CT of the chest revealed bilateral diffuse mild to moderate opacities with small right pleural effusion. Pattern favors interstitial edema versus atelectasis. Superimposed infiltrates cannot be entirely excluded. Echocardiogram reveals EF of 55-60%, study was some optimal due to morbid obesity. Patient was admitted into intensive care unit, currently on BiPAP, consults in place with pulmonary medicine, cardiology. REVIEW OF SYSTEMS Constitutional: No fever, no chills, no night sweats. No weight change. R eports weakness,Reports fatigue Reports lethargy. Reports daytime sleepiness. EENT: No headache. No blurred vision or double vision, no loss of vision. No loss of Hearing, no ringing in the ears, no dizziness. No nasal drainage or congestion. No epistaxis. No sore throat. Lungs: Reports shortness of breath, Reports cough, no sputum production. No wheezing. Cardiovascular: No chest pain, no lower extremity edema. No palpitations. No paroxysmal nocturnal dyspnea. No orthopnea. No lightheadedness or dizziness. No syncopal episodes. Abdominal: No abdominal pain. No nausea, vomiting. No diarrhea. No constipation. No bloody or tarry stools. No loss of appetite. Genitourinary: No dysuria, increased frequency, urgency. No urinary retention. Musculoskeletal: No myalgias. No muscle weakness, no gait dysfunction, no frequent falls. No back pain. No neck pain. Integumentary: No wounds, no lesions. No rash or pruritus. No unusual bruising. No change in hair or nails. Neurologic: No aphasia. No facial droop. Reports change in mentation. No head injury. No headache. No paralysis. No paresthesia. Psychiatric: No depression. No anxiety. No mood swings. Endocrine: No abnormal blood sugars. No weight change. No excessive sweating or thirst. No cold intolerance. SOCIAL HISTORY Patient is a lifelong nonsmoker, occasional alcohol use. Patient lives with his girlfriend.. FAMILY HISTORY Mother in F at age 80 with history of diabetes and Alzheimer's. Patient states his father left many years ago and does not know any of his history. Patient does not have any brothers. He has 3 sisters that he does not know. PHYSICAL EXAMINATION Gen: This is this is a 56-year-old male, morbidly obese, resting in the ICU bed currently on BiPAP. HEENT: Head is atraumatic, normocephalic. Pupils equal, round. Sclerae is anicteric. NECK: Supple. No JVD. No lymphadenopathy. No thyromegaly. LUNGS: Clear to auscultation. No wheezes or rhonchi. No intercostal retractions. HEART: Regular rate and rhythm. No murmur. ABDOMEN: Soft. Bowel sounds are present. No masses. No tenderness. EXTREMITIES: Trace bilateral pedal edema. No calf tenderness. NEUROLOGICAL: Patient is awake, alert and oriented x3. Cranial nerves 2 through 12 are grossly intact. ASSESSMENT AND PLAN 1. Acute hypoxic and hypercapnic respiratory failure secondary to acute diastolic heart failure. Patient is currently on BiPAP, management in the intensive care unit, consults with pulmonary medicine and cardiology. Patient is status post 2 doses of IV Lasix. Patient started on hydrocortisone 100 mg IV every 12 hours 2. Suspected obstructive sleep apnea. 3. History of thyroid cancer, severe hypothyroidism noncompliant with medication. Patient is status post IV levothyroxine of 200 g 1 and 250 g 1, maintained on 100 g IV daily 4. Hypertensive emergency status post IV hydralazine and IV Lasix. 5. Hypertension, uncontrolled secondary to noncompliance. Patient started on amlodipine 5 mg daily. 6. Bradycardia secondary to . 7. Chronic gout. Continue allopurinol 300 mg daily. 8. Generalized osteoarthritis. 9. Gastroesophageal reflux disease and GI prophylaxis. Protonix 40 mg daily. 10. DVT prophylaxis. Heparin subcu every 8 hours. 11. Morbid obesity with BMI of 67. Patient will be admitted to the hospital for a minimum of 2 night stay. DISCHARGE PLAN TBD. Impression and plan of care have been directed as dictated by the signing physician. Pati Batista nurse practitioner acting as scribe for signing physician. Past Medical History Past Medical History: Cancer, GERD/Reflux, Hypertension, Thyroid Disorder Additional Past Medical History / Comment(s): Pt tested covid + in [facility] ER on 08/07/20. Thyroid cancer with thyroidectomy, sciatica with coexisting acute pyriformis syndrome and lumbar discogenic pain R side L$-L%, lasix for bilateral lower leg/ankle edema, gout bilateral feet, past staph infections/wound base of skull/feet-pt does not recall if MRSA. History of Any Multi-Drug Resistant Organisms: None Reported Past Surgical History: Tonsillectomy Additional Past Surgical History / Comment(s): thyroid ca - thyroidectomy Past Anesthesia/Blood Transfusion Reactions: No Reported Reaction Past Psychological History: No Psychological Hx Reported Smoking Status: Never smoker Past Alcohol Use History: Occasional Past Drug Use History: None Reported - Past Family History Father History Unknown: Yes Additional Family Medical History / Comment(s): Father left when pt was 9 yrs old. Mother History Unknown: Yes Additional Family Medical History / Comment(s): Pt does not have much contact with his mother Medications and Allergies Home Medications Medication Instructions Recorded Confirmed Type Furosemide [Lasix] 20 mg PO BID 12/17/18 08/10/21 History Indomethacin [Indocin] 50 mg PO BID 12/17/18 08/10/21 History Levothyroxine Sodium [Synthroid] 25 mcg PO DAILY 12/17/18 08/10/21 History Levothyroxine Sodium [Synthroid] 200 mcg PO DAILY 12/17/18 08/10/21 History allopurinoL [Zyloprim] 300 mg PO DAILY 12/17/18 08/10/21 History Allergies Allergy/AdvReac Type Severity Reaction Status Date / Time Penicillins Allergy Rash/Hives Verified 08/10/21 18:15 Physical Exam Vitals: Vital Signs Temp Pulse Resp BP Pulse Ox 08/11/21 07:00 55 L 10 L 157/90 93 L 08/11/21 06:00 54 L 15 165/94 92 L 08/11/21 05:00 49 L 20 145/73 91 L 08/11/21 04:00 96.3 F L 53 L 20 154/77 90 L 08/11/21 03:00 54 L 20 146/78 91 L 08/11/21 02:00 55 L 18 154/73 89 L 08/11/21 01:00 98.0 F 61 12 154/73 90 L 08/11/21 00:33 68 18 138/72 93 L 08/10/21 22:59 56 L 22 157/94 94 L 08/10/21 21:08 98.0 F 22 90 L 08/10/21 20:22 63 28 H 139/77 93 L 08/10/21 19:00 62 11 L 167/91 96 08/10/21 18:25 59 L 18 167/91 95 08/10/21 18:00 175/108 08/10/21 17:41 58 L 20 188/107 91 L 08/10/21 17:35 20 08/10/21 17:22 52 H 08/10/21 17:05 97.7 F 56 L 22 201/92 85 L Intake and Output 08/10/21 08/11/21 08/11/21 22:59 06:59 14:59 Intake Total 60 10 Output Total 1700 Balance -1640 10 Intake: IV 60 10 0.9 60 10 Output: Urine 1700 Other: Voiding Method Urinal # Voids 1 Weight 226.796 kg Results CBC & Chem 7: 08/12/21 06:18 08/12/21 06:18 Labs: Abnormal Lab Results - Last 24 Hours (Table) 08/10/21 08/10/21 08/10/21 Range/Units 17:51 17:51 18:40 WBC 12.7 H (3.8-10.6) k/uL RBC 6.90 H (4.30-5.90) m/uL Hct 58.7 H* (39.0-53.0) % MCH 24.2 L (25.0-35.0) pg MCHC 28.4 L (31.0-37.0) g/dL RDW 18.0 H (11.5-15.5) % Neutrophils # 10.2 H (1.3-7.7) k/uL Lymphocytes # (1.0-4.8) k/uL ABG pH 7.31 L (7.35-7.45) ABG pCO2 79 H* (35-45) mmHg ABG pO2 (83-108) mmHg ABG HCO3 40 H* (21-25) mmol/L ABG Total CO2 43 H (19-24) mmol/L ABG O2 Saturation (94-97) % Chloride 94 L (98-107) mmol/L Carbon Dioxide 35 H (22-30) mmol/L BUN 27 H (9-20) mg/dL Glucose 100 H (74-99) mg/dL POC Glucose (mg/dL) (75-99) mg/dL Magnesium 2.5 H (1.6-2.3) mg/dL TSH 42.200 H (0.465-4.680) mIU/L Free T4 0.19 L (0.78-2.19) ng/dL 08/10/21 08/10/21 08/11/21 Range/Units 20:55 21:59 00:26 WBC (3.8-10.6) k/uL RBC (4.30-5.90) m/uL Hct (39.0-53.0) % MCH (25.0-35.0) pg MCHC (31.0-37.0) g/dL RDW (11.5-15.5) % Neutrophils # (1.3-7.7) k/uL Lymphocytes # (1.0-4.8) k/uL ABG pH 7.25 L 7.26 L (7.35-7.45) ABG pCO2 96 H* 94 H* (35-45) mmHg ABG pO2 70 L 142 H (83-108) mmHg ABG HCO3 43 H* 42 H* (21-25) mmol/L ABG Total CO2 45 H 45 H (19-24) mmol/L ABG O2 Saturation 90.3 L 98.5 H (94-97) % Chloride (98-107) mmol/L Carbon Dioxide (22-30) mmol/L BUN (9-20) mg/dL Glucose (74-99) mg/dL POC Glucose (mg/dL) 117 H (75-99) mg/dL Magnesium (1.6-2.3) mg/dL TSH (0.465-4.680) mIU/L Free T4 (0.78-2.19) ng/dL 08/11/21 08/11/21 08/11/21 Range/Units 05:52 05:52 06:21 WBC 14.6 H (3.8-10.6) k/uL RBC 6.90 H (4.30-5.90) m/uL Hct 59.4 H* (39.0-53.0) % MCH 24.3 L (25.0-35.0) pg MCHC 28.3 L (31.0-37.0) g/dL RDW 18.0 H (11.5-15.5) % Neutrophils # 13.1 H (1.3-7.7) k/uL Lymphocytes # 0.9 L (1.0-4.8) k/uL ABG pH 7.26 L (7.35-7.45) ABG pCO2 91 H* (35-45) mmHg ABG pO2 82 L (83-108) mmHg ABG HCO3 41 H* (21-25) mmol/L ABG Total CO2 44 H (19-24) mmol/L ABG O2 Saturation (94-97) % Chloride 95 L (98-107) mmol/L Carbon Dioxide 39 H (22-30) mmol/L BUN 25 H (9-20) mg/dL Glucose 111 H (74-99) mg/dL POC Glucose (mg/dL) (75-99) mg/dL Magnesium (1.6-2.3) mg/dL TSH (0.465-4.680) mIU/L Free T4 (0.78-2.19) ng/dL Thrombosis Risk Factor Assmnt - Choose All That Apply Any of the Below Risk Factors Present?: Yes Each Factor Represents 1 point: Medical pt on bed rest, Obesity (BMI >25), Swollen legs (current) Other Risk Factors: No Other congenital or acquired thrombophilia - If yes, enter type in comment: No Thrombosis Risk Factor Assessment Total Risk Factor Score: 3 Thrombosis Risk Factor Assessment Level: Moderate Risk
--- NOTE | 2021-08-11 12:30 | P.CNPUL ---
History of Present Illness Consult date: 08/11/21 Requesting physician: Jeri Tena Reason for consult: other (Acute hypercapnic respiratory failure) Chief complaint: Shortness of breath and weakness. History of present illness: This is a 56-year-old white male with history of morbid obesity, patient presented to the emergency room yesterday with 1 week history of not feeling well. Patient has been feeling short of breath, lightheaded, weak, and has been developing lower extremities edema. Patient was found to be bradycardic, he was hypercapnic, required placement on BiPAP since his ABG reflected a significant hypercapnia with CO2 as high as 90. In the meantime the patient was noted to have profound bradycardia/sinus bradycardia, he was also noted to have congestive heart failure/interstitial edema. Patient was placed on BiPAP, and he was found to have profound hypothyroidism with very low T4, and elevated TSH. Clearly this is a presentation of profound hypothyroidism with bradycardia, and hypercapnic respiratory failure with hypoventilation. Considering the presentation, I was notified about this patient from the ER, and I recommended that the patient starts on levothyroxine IV initially, I also recommended Solu-Cortef 100 mg twice a day, and the patient will need IV replacement of his levothyroxine. According to the patient he ran out of his medication/levothyroxine and his usual dose is 225 g daily. And could not get a refill from his primary care physician, and his old physician would not refill it for him. Hence the patient ended up coming to the ER with multiple complaints, most likely all related to his profound hypothyroidism. I saw the patient in the ICU, and he is still on BiPAP. He is presently on IPAP of 18 and EPAP of 5, FiO2 35%. He is on IV fluid at [facility], he received Lasix already [facility] er. Review of Systems Constitutional: Weakness fatigue malaise HEENT: Patient does have symptoms clearly suggestive of obstructive sleep apnea with snoring and daytime sleepiness Pulmonary: Shortness of breath no cough no wheezing Cardiac: Lightheadedness and weakness no chest pain. GI: Negative Genitourinary: Negative Musculoskeletal: Weakness Endocrine: As noted in HPI Neurologic: Negative Psychiatric: Negative Hematologic: Negative Skin: Negative Past Medical History Past Medical History: Cancer, GERD/Reflux, Hypertension, Thyroid Disorder Additional Past Medical History / Comment(s): Pt tested covid + in [facility] ER on 08/07/20. Thyroid cancer with thyroidectomy, sciatica with coexisting acute p yriformis syndrome and lumbar discogenic pain R side L$-L%, lasix for bilateral lower leg/ankle edema, gout bilateral feet, past staph infections/wound base of skull/feet-pt does not recall if MRSA. History of Any Multi-Drug Resistant Organisms: None Reported Past Surgical History: Tonsillectomy Additional Past Surgical History / Comment(s): thyroid ca - thyroidectomy Past Anesthesia/Blood Transfusion Reactions: No Reported Reaction Past Psychological History: No Psychological Hx Reported Smoking Status: Never smoker Past Alcohol Use History: Occasional Past Drug Use History: None Reported - Past Family History Father History Unknown: Yes Additional Family Medical History / Comment(s): Father left when pt was 9 yrs old. Mother History Unknown: Yes Additional Family Medical History / Comment(s): Pt does not have much contact with his mother Medications and Allergies Home Medications Medication Instructions Recorded Confirmed Type Furosemide [Lasix] 20 mg PO BID 12/17/18 08/10/21 History Indomethacin [Indocin] 50 mg PO BID 12/17/18 08/10/21 History Levothyroxine Sodium [Synthroid] 25 mcg PO DAILY 12/17/18 08/10/21 History Levothyroxine Sodium [Synthroid] 200 mcg PO DAILY 12/17/18 08/10/21 History allopurinoL [Zyloprim] 300 mg PO DAILY 12/17/18 08/10/21 History Allergies Allergy/AdvReac Type Severity Reaction Status Date / Time Penicillins Allergy Rash/Hives Verified 08/10/21 18:15 Physical Exam Vitals: Vital Signs Temp Pulse Resp BP Pulse Ox 08/11/21 10:00 46 L 18 158/84 93 L 08/11/21 09:00 51 L 18 177/102 92 L 08/11/21 08:00 97 F L 49 L 16 170/96 92 L 08/11/21 07:00 55 L 10 L 157/90 93 L 08/11/21 06:00 54 L 15 165/94 92 L 08/11/21 05:00 49 L 20 145/73 91 L 08/11/21 04:00 96.3 F L 53 L 20 154/77 90 L 08/11/21 03:00 54 L 20 146/78 91 L 08/11/21 02:00 55 L 18 154/73 89 L 08/11/21 01:00 98.0 F 61 12 154/73 90 L 08/11/21 00:33 68 18 138/72 93 L 08/10/21 22:59 56 L 22 157/94 94 L 08/10/21 21:08 98.0 F 22 90 L 08/10/21 20:22 63 28 H 139/77 93 L 08/10/21 19:00 62 11 L 167/91 96 08/10/21 18:25 59 L 18 167/91 95 08/10/21 18:00 175/108 08/10/21 17:41 58 L 20 188/107 91 L 08/10/21 17:35 20 08/10/21 17:22 52 H 08/10/21 17:05 97.7 F 56 L 22 201/92 85 L Intake and Output 08/10/21 08/11/21 08/11/21 22:59 06:59 14:59 Intake Total 60 50 Output Total 1700 Balance -1640 50 Intake: IV 60 50 0.9 60 50 Output: Urine 1700 Other: Voiding Method Urinal Urinal # Voids 1 Weight 226.796 kg Physical Exam: Revealed 56-year-old white male morbidly obese, on BiPAP, in the ICU. Head: Atraumatic normocephalic. HEENT:[Neck is supple.] [No neck masses.] [No thyromegaly.] [No JVD.] About the class IV. Mallampati class IV Chest: [Apical chest expansion, crackles at the bases. No rhonchi and no wheezes Cardiac Exam: Any cardiac, [Normal S1 and S2, no S3 gallop, no murmur.] Abdomen: [Soft, nontender, no megaly, no rebound, no guarding, normal bowel sounds.] Extremities: [No clubbing, 1+ bipedal edema, diminished distal pulses bilaterally in both feet, and some bluish discoloration noted in the toes bilaterally. Neurological Exam: Alert and oriented 3, no gross focal deficits. Psychiatric: Normal mood affect and normal mental status examination. Skin: No rashes. Musculoskeletal: No deformities and no limitation in range of motion. Results - Laboratory Findings CBC and BMP: 08/11/21 05:52 08/11/21 05:52 ABG ABG pH 7.26 (7.35-7.45) L 08/11/21 06:21 ABG pCO2 91 mmHg (35-45) H* 08/11/21 06:21 ABG pO2 82 mmHg (83-108) L 08/11/21 06:21 ABG O2 Saturation 94.6 % (94-97) 08/11/21 06:21 PT/INR, D-dimer PT 11.6 sec (9.0-12.0) 08/10/21 17:51 INR 1.1 (<1.2) 08/10/21 17:51 D-Dimer 0.55 mg/L FEU (<0.60) 08/10/21 17:51 Abnormal lab findings: Abnormal Labs 08/10/21 08/10/21 08/10/21 17:51 17:51 18:40 WBC 12.7 H RBC 6.90 H Hct 58.7 H* MCH 24.2 L MCHC 28.4 L RDW 18.0 H Neutrophils # 10.2 H Lymphocytes # ABG pH 7.31 L ABG pCO2 79 H* ABG pO2 ABG HCO3 40 H* ABG Total CO2 43 H ABG O2 Saturation Chloride 94 L Carbon Dioxide 35 H BUN 27 H Glucose 100 H POC Glucose (mg/dL) Magnesium 2.5 H TSH 42.200 H Free T4 0.19 L 08/10/21 08/10/21 08/11/21 20:55 21:59 00:26 WBC RBC Hct MCH MCHC RDW Neutrophils # Lymphocytes # ABG pH 7.25 L 7.26 L ABG pCO2 96 H* 94 H* ABG pO2 70 L 142 H ABG HCO3 43 H* 42 H* ABG Total CO2 45 H 45 H ABG O2 Saturation 90.3 L 98.5 H Chloride Carbon Dioxide BUN Glucose POC Glucose (mg/dL) 117 H Magnesium TSH Free T4 08/11/21 08/11/21 08/11/21 05:52 05:52 06:21 WBC 14.6 H RBC 6.90 H Hct 59.4 H* MCH 24.3 L MCHC 28.3 L RDW 18.0 H Neutrophils # 13.1 H Lymphocytes # 0.9 L ABG pH 7.26 L ABG pCO2 91 H* ABG pO2 82 L ABG HCO3 41 H* ABG Total CO2 44 H ABG O2 Saturation Chloride 95 L Carbon Dioxide 39 H BUN 25 H Glucose 111 H POC Glucose (mg/dL) Magnesium TSH Free T4 - Diagnostic Findings Chest x-ray: image reviewed (As noted in HPI.) Assessment and Plan Assessment: Impression: Severe hypothyroidism, patient has been noncompliant with his replacement therapy which is usually levothyroxine to 25 g daily. Bradycardia secondary to profound hypothyroidism/almost a myxedema crisis. Morbid obesity Obstructive sleep apnea syndrome Acute on chronic hypercapnic respiratory failure secondary to obstructive sleep apnea syndrome, and exacerbated by his profound hypothyroidism. History of thyroid cancer and previous surgery History of degenerative joint disease. Suspect mild component of congestive heart failure, possibly diastolic in nature and acute in nature secondary to his hypothyroidism and bradycardia. Recommendation: Continue to monitor the patient in the ICU. Continue BiPAP. Continue replacement therapy, patient is now on IV thyroxine 100 g IV push daily Will transition to oral levothyroxine and go back to his usual dose. Continue Solu-Cortef for now, Continue diuretics, We will continue to follow. Patient is obviously critically ill, and I will continue to monitor in the ICU Time with Patient: Greater than 30
[2021-08-11] MEDS: HEPARIN SODIUM,PORCINE/PF 5,000 UNIT/0.5 ML SYRINGE SQ SCH (17:14)
[2021-08-11] MEDS: amLODIPine 5 MG TAB PO SCH (17:14)
[2021-08-11 23:49] LABS: Glucose,Whole Blood 114 mg/dL (75-99)
[2021-08-12] MEDS: HEPARIN SODIUM,PORCINE/PF 5,000 UNIT/0.5 ML SYRINGE SQ SCH ×4 (00:36→23:19)
[2021-08-12] MEDS: hydrALAZINE HCL 20 MG/ML 1 ML VIAL IVP PRN (00:55)
[2021-08-12] MEDS: PANTOPRAZOLE 40 MG TABLET PO SCH (06:50)
[2021-08-12 07:16] LABS: Calcium 8.2 mg/dL (8.4-10.2); Potassium 4.6 mmol/L (3.5-5.1)
[2021-08-12 07:17] LABS: Anisocytosis Slight; Basophils % (A) 0 %; Eosinophils % (A) 0 %; HGB 16.5 gm/dL (13.0-17.5); Hypochromasia Marked; Lymphocytes % (A) 8 %; MCH 24.1 pg (25.0-35.0); MCHC 28.6 g/dL (31.0-37.0); MCV 84.1 fL (80.0-100.0); Mean Platelet Volume 7.3; Monocytes # (A) 0.6 k/uL (0-1.0); Monocytes % (A) 4 %; Neutrophils # (A) 11.4 k/uL (1.3-7.7); Neutrophils % (A) 87 %; Platelet Count 220 k/uL (150-450); RBC 6.84 m/uL (4.30-5.90); RDW 18.2 % (11.5-15.5); WBC 13.1 k/uL (3.8-10.6)
[2021-08-12 07:22] LABS: HCT 57.5 % (39.0-53.0)
[2021-08-12] MEDS: HYDROCORTISONE SUCCINATE 100 MG/2 ML VIAL IV SCH ×2 (08:09→19:58)
[2021-08-12] MEDS: LEVOTHYROXINE 125 MCG TAB PO SCH (08:09)
[2021-08-12] MEDS: allopurinoL 300 MG TAB PO SCH (08:10)
[2021-08-12] MEDS: amLODIPine 5 MG TAB PO SCH ×2 (08:10→19:59)
--- NOTE | 2021-08-12 08:56 | XR ---
EXAMINATION TYPE: XR chest 1V portable DATE OF EXAM: 08/12/2021 COMPARISON: 08/11/2021 HISTORY: Shortness of breath TECHNIQUE: Single frontal view of the chest is obtained. FINDINGS: Exam severely limited due to motion artifact. Heart is enlarged and bilateral infiltrate a nd pleural effusion persist. No obvious pneumothorax. IMPRESSION: Limited exam due to severe motion artifact demonstrates no significant interval change. Correlate for diffuse pneumonia or CHF
[2021-08-12] MEDS ORDERED: LEVOTHYROXINE IVP 100 MCG/5 ML VIAL IV SCH (09:00)
--- NOTE | 2021-08-12 09:08 | PN ---
PROGRESS NOTE Mr. Boss is much more alert today. He has hypothyroidism, morbid obesity, probable sleep apnea and polycythemia secondary to it. He has not been taking his thyroid medications. I will initiate him on 250 mcg of Synthroid daily, which was his previous dose. We can stop IV Synthroid. His echocardiogram revealed preserved systolic function. He will require a full sleep study and CPAP or BiPAP at home. Echo was a difficult study, but grossly LV systolic function is fairly well preserved. We can increase activity and move him to telemetry today. I am recommending that he should follow up with his agriculture laboratory technician upon discharge, and he already has an appointment set up. MMODL / IJN: [id number] /
--- NOTE | 2021-08-12 12:30 | P.PN ---
Subjective Progress Note Date: 08/12/21 Principal diagnosis: Acute on chronic hypercapnic respiratory failure, multifactorial This is a 56-year-old white male with history of morbid obesity, patient presented to the emergency room yesterday with 1 week history of not feeling well. Patient has been feeling short of breath, lightheaded, weak, and has been developing lower extremities edema. Patient was found to be bradycardic, he was hypercapnic, required placement on BiPAP since his ABG reflected a significant hypercapnia with CO2 as high as 90. In the meantime the patient was noted to have profound bradycardia/sinus bradycardia, he was also noted to have congestive heart failure/interstitial edema. Patient was placed on BiPAP, and he was found to have profound hypothyroidism with very low T4, and elevated TSH. Clearly this is a presentation of profound hypothyroidism with bradycardia, and hypercapnic respiratory failure with hypoventilation. Considering the presentation, I was notified about this patient from the ER, and I recommended that the patient starts on levothyroxine IV initially, I also recommended Solu- Cortef 100 mg twice a day, and the patient will need IV replacement of his levothyroxine. According to the patient he ran out of his medication/levothyroxine and his usual dose is 225 g daily. And could not get a refill from his primary care physician, and his old physician would not refill it for him. Hence the patient ended up coming to the ER with multiple complaints, most likely all related to his profound hypothyroidism. I saw the patient in the ICU, and he is still on BiPAP. He is presently on IPAP of 18 and EPAP of 5, FiO2 35%. He is on IV fluid at [facility], he received Lasix already earlier. Patient was reevaluated today on 08/12/2021, patient is feeling much better today, he is off BiPAP, sitting at a bedside chair, he is on few liters nasal cannula, O2 sats is 96%, denies any shortness of breath or cough or wheezing. Patient was transitioned to oral levothyroxine, he is off IV levothyroxine, heart rate is 60, he is hemodynamically stable, and he does not seem to be in any distress. Hence , plan to transfer the patient out of the ICU to a monitor bed on the cardiac floor. His WBC count is 13.1 hemoglobin is 16.5. Electrolytes are normal bicarb is 39, implies that the patient has chronic hypercapnic arrest were failure with metabolic compensation. His BUN is 30 creatinine 1.11. Objective - Vital Signs Vital signs: Vital Signs Temp 98.4 F 08/11/21 20:00 Pulse 60 08/12/21 11:00 Resp 30 H 08/12/21 11:00 BP 152/95 08/12/21 11:00 Pulse Ox 96 08/12/21 11:00 Intake & Output 08/11/21 08/12/21 08/12/21 18:59 06:59 18:59 Intake Total 80 1320 540 Output Total 1100 350 0 Balance -1020 970 540 Intake: IV 80 0.9 80 Oral 1320 540 Output: Urine 1100 350 0 Other: Voiding Method Urinal Urinal Urinal - Exam Physical Exam: Revealed 56-year-old white male morbidly obese, on few liters nasal cannula. In no distress. Head: Atraumatic normocephalic. HEENT:[Neck is supple.] [No neck masses.] [No thyromegaly.] [No JVD.] About the class IV. Mallampati class IV Chest: [Symmetrical chest expansion, crackles at the bases. No rhonchi and no wheezes Cardiac Exam: Bradycardic. [Normal S1 and S2, no S3 gallop, no murmur.] Abdomen: [Soft, nontender, no megaly, no rebound, no guarding, normal bowel sounds.] Extremities: [No clubbing, 1+ bipedal edema, diminished distal pulses bilaterally in both feet, and some bluish discoloration noted in the toes bilaterally. Neurological Exam: Alert and oriented 3, no gross focal deficits. Psychiatric: Normal mood affect and normal mental status examination. Skin: No rashes. Musculoskeletal: No deformities and no limitation in range of motion. - Labs CBC & Chem 7: 08/12/21 06:18 08/12/21 06:18 Labs: Abnormal Lab Results - Last 24 Hours (Table) 08/11/21 08/12/21 08/12/21 Range/Units 23:47 06:18 06:18 WBC 13.1 H (3.8-10.6) k/uL RBC 6.84 H (4.30-5.90) m/uL Hct 57.5 H* (39.0-53.0) % MCH 24.1 L (25.0-35.0) pg MCHC 28.6 L (31.0-37.0) g/dL RDW 18.2 H (11.5-15.5) % Neutrophils # 11.4 H (1.3-7.7) k/uL Sodium 136 L (137-145) mmol/L Chloride 95 L (98-107) mmol/L Carbon Dioxide 39 H (22-30) mmol/L BUN 30 H (9-20) mg/dL Glucose 100 H (74-99) mg/dL POC Glucose (mg/dL) 114 H (75-99) mg/dL Calcium 8.2 L (8.4-10.2) mg/dL Assessment and Plan Assessment: Impression: Severe hypothyroidism, patient has been noncompliant with his replacement therapy which is usually levothyroxine 225 g daily. Bradycardia secondary to profound hypothyroidism/almost a myxedema crisis. Morbid obesity Obstructive sleep apnea syndrome Acute on chronic hypercapnic respiratory failure secondary to obstructive sleep apnea syndrome, and exacerbated by his profound hypothyroidism. History of thyroid cancer and previous surgery History of degenerative joint disease. Suspect mild component of diastolic congestive heart failure, exacerbated by his profound bradycardia on presentation. Recommendation: Continue oral levothyroxine. Continue BiPAP at night. Patient will eventually need outpatient sleep study and evaluation, would amanuel liriano recommend that he sees Dr. Askew on follow-up for sleep evaluation. Discontinue IV levothyroxine. Discontinue Solu-Cortef. Continue gentle diuresis. Transfer out of the ICU to a runway model bed. Possible discharge in the next 24-48 hours. Time with Patient: Less than 30
--- NOTE | 2021-08-12 12:57 | P.PN ---
Subjective Progress Note Date: 08/12/21 HISTORY OF PRESENT ILLNESS This is a 56-year-old male patient of Dr. Martínez with past medical history of thyroid cancer status post thyroidectomy, gastroesophageal reflux disease, hypertension, sciatica, chronic gout, generalized osteoarthritis, Covid positive and July 2020. And having increased difficulty at night. His noticed that his lips turned blue and he was hallucinating and EMS was called and he was brought into [facility] emergency [facility] for evaluation. Patient does not have a CPAP at home and has not been tested for sleep apnea. He gives history that he was following with [facility] but that physician had retired and he was unable to get his thyroid medication from the new physician. He last saw his PCP 6 months ago. His girlfriend normally handles his medications and he has not been taking them for the past month. Patient was found to be afebrile, heart rate in the 50s, blood pressure initially to let her in , pulse ox 85% EKG was sinus bradycardia with no acute ST changes. WBC 12.7, hemoglobin 16.7, platelet count 261. Sodium 137, potassium 5.0, chloride 94, CO2 35, BUN 27 creatinine 1.16, blood sugar 100. INR 1.1. Magnesium 2.5. Liver function tests were normal. TSH 42.2, free T4 0.19. Albumin 3.9. Lactic acid 2. Troponin 0.013. ProBNP 603. ABGs pH 7.31, pCO2 79, PaO2 90, bicarbonate 40, CO2 43 O2 saturation 95, base excess to keep foot 8. Coronavirus PCR not detected. Analysis showed 2+ protein. Chest x-ray reveals CHF. Repeat chest x-ray reveals correlate for pulmonary venous hypertension and interstitial edema, congestive heart failure. CT of the chest revealed bilateral diffuse mild to moderate opacities with small right pleural effusion. Pattern favors interstitial edema versus atelectasis. Superimposed infiltrates cannot be entirely excluded. Echocardiogram reveals EF of 55-60%, study was some optimal due to morbid obesity. Patient was admitted into intensive care unit, currently on BiPAP, consults in place with pulmonary medicine, cardiology. 08/12: She remains in the intensive care unit. He is off BiPAP, currently on 3 L nasal cannula with pulse ox of 96%. His breathing and shortness of breath is much improved. He denies having any palpitations. He has been transitioned from IV levothyroxine to oral at 250 g daily. He has been afebrile, heart rate in the 60s, blood pressure 152/95. Repeat blood work reveals WBC 13.1, hemoglobin 16.5. Sodium 136, potassium 4.6, chloride 95, CO2 to 39, BUN 30 creatinine 1.11. Chest x-ray is limited but demonstrates no significant interval change. Correlate for diffuse pneumonia or CHF. Pulmonary has placed orders to transfer out of the intensive care unit. REVIEW OF SYSTEMS Constitutional: No fever, no chills, no night sweats. No weight change. Reports weakness,Reports fatigue no lethargy. No daytime sleepiness. EENT: No headache. No blurred vision or double vision, no loss of vision. No loss of Hearing, no ringing in the ears, no dizziness. No nasal drainage or congestion. No epistaxis. No sore throat. Lungs: Reports shortness of breathimproved, Reports cough, no sputum production. No wheezing. Cardiovascular: No chest pain, no lower extremity edema. No palpitations. No paroxysmal nocturnal dyspnea. No orthopnea. No lightheadedness or dizziness. No syncopal episodes. Abdominal: No abdominal pain. No nausea, vomiting. No diarrhea. No constipation. No bloody or tarry stools. No loss of appetite. Genitourinary: No dysuria, increased frequency, urgency. No urinary retention. Musculoskeletal: No myalgias. No muscle weakness, no gait dysfunction, no frequent falls. No back pain. No neck pain. Integumentary: No wounds, no lesions. No rash or pruritus. No unusual bruising. No change in hair or nails. Neurologic: No aphasia. No facial droop. Reports change in mentation. No head injury. No headache. No paralysis. No paresthesia. Psychiatric: No depression. No anxiety. No mood swings. Endocrine: No abnormal blood sugars. No weight change. No excessive sweating or thirst. No cold intolerance. PHYSICAL EXAMINATION Gen: This is this is a 56-year-old male, morbidly obese, resting in chair in the ICU on nasal cannula oxygen. HEENT: Head is atraumatic, normocephalic. Pupils equal, round. Sclerae is anicteric. NECK: Supple. No JVD. No lymphadenopathy. No thyromegaly. LUNGS: Clear to auscultation. No wheezes or rhonchi. No intercostal retractions. HEART: Regular rate and rhythm. No murmur. ABDOMEN: Soft. Bowel sounds are present. No masses. No tenderness. EXTREMITIES: Trace bilateral pedal edema. No calf tenderness. NEUROLOGICAL: Patient is awake, alert and oriented x3. Cranial nerves 2 through 12 are grossly intact. ASSESSMENT AND PLAN 1. Acute hypoxic and hypercapnic respiratory failure secondary to acute diastolic heart failure. Patient is currently on BiPAP, management in the intensive care unit, consults with pulmonary medicine and cardiology. Patient is status post 2 doses of IV Lasix. Patient started on hydrocortisone decreased to 50 mg IV every 12 hours 2. Suspected obstructive sleep apnea. 3. History of thyroid cancer, severe hypothyroidism noncompliant with medication. Patient is status post IV levothyroxine of 200 g 1 and 250 g 1, maintained on 100 g IV daily and today transitioned to oral at 250 g daily 4. Hypertensive emergency status post IV hydralazine and IV Lasix. 5. Hypertension, uncontrolled secondary to noncompliance. Patient started on amlodipine 5 mg daily. 6. Bradycardia secondary to . 7. Chronic gout. Continue allopurinol 300 mg daily. 8. Generalized osteoarthritis. 9. Gastroesophageal reflux disease and GI prophylaxis. Protonix 40 mg daily. 10. DVT prophylaxis. Heparin subcu every 8 hours. 11. Morbid obesity with BMI of 67. DISCHARGE PLAN Return home. Impression and plan of care have been directed as dictated by the signing physician. Pati Batista nurse practitioner acting as scribe for signing physician. Objective - Vital Signs Vital signs: Vital Signs Temp 98.4 F 08/11/21 20:00 Pulse 57 L 08/12/21 08:00 Resp 20 08/12/21 08:00 BP 147/96 08/12/21 08:00 Pulse Ox 95 08/12/21 08:00 Intake & Output 08/11/21 08/12/21 08/12/21 18:59 06:59 18:59 Intake Total 80 1320 540 Output Total 1100 350 0 Balance -1020 970 540 Intake: IV 80 0.9 80 Oral 1320 540 Output: Urine 1100 350 0 Other: Voiding Method Urinal Urinal Urinal - Labs CBC & Chem 7: 08/12/21 06:18 08/12/21 06:18 Labs: Abnormal Lab Results - Last 24 Hours (Table) 08/11/21 08/12/21 08/12/21 Range/Units 23:47 06:18 06:18 WBC 13.1 H (3.8-10.6) k/uL RBC 6.84 H (4.30-5.90) m/uL Hct 57.5 H* (39.0-53.0) % MCH 24.1 L (25.0-35.0) pg MCHC 28.6 L (31.0-37.0) g/dL RDW 18.2 H (11.5-15.5) % Neutrophils # 11.4 H (1.3-7.7) k/uL Sodium 136 L (137-145) mmol/L Chloride 95 L (98-107) mmol/L Carbon Dioxide 39 H (22-30) mmol/L BUN 30 H (9-20) mg/dL Glucose 100 H (74-99) mg/dL POC Glucose (mg/dL) 114 H (75-99) mg/dL Calcium 8.2 L (8.4-10.2) mg/dL
[2021-08-13] MEDS: PANTOPRAZOLE 40 MG TABLET PO SCH (06:19)
[2021-08-13] MEDS: LEVOTHYROXINE 125 MCG TAB PO SCH (06:19)
[2021-08-13] MEDS: HEPARIN SODIUM,PORCINE/PF 5,000 UNIT/0.5 ML SYRINGE SQ SCH ×2 (06:19→16:38)
[2021-08-13] MEDS ORDERED: LOSARTAN-HCTZ 50-12.5 MG 1 EACH TAB PO SCH (09:00)
[2021-08-13] MEDS: allopurinoL 300 MG TAB PO SCH (09:43)
[2021-08-13] MEDS: amLODIPine 5 MG TAB PO SCH (09:43)
[2021-08-13] MEDS: HYDROCORTISONE SUCCINATE 100 MG/2 ML VIAL IV SCH (09:46)
--- NOTE | 2021-08-13 10:03 | PN ---
PROGRESS NOTE Mr. Boss is a patient who came in with hypercapnic respiratory failure, has recovered from this nicely. He has underlying hypothyroidism, obstructive sleep apnea, morbid obesity and hypertension. I am adding losartan HCTZ 50/12.5 1 tab daily. Continue amlodipine. The patient is doing clinically better. He can be moved to the medical floor with telemetry. He will need a full sleep study and BiPAP at home. From a cardiac standpoint, same medical regimen. Synthroid is 250 mcg. I think we should probably check his thyroid levels soon and he already has an appointment scheduled with certified orthotic fitter. Vitals are stable. No JVD. S1, S2 heard normally. No significant murmurs. Lungs reveal improved air entry. Abdomen and lower extremity exam unchanged. Plan is to continue current medications, increase activity, possibly moving to the medical floor with telemetry. BRIANNE / ESTER: [id number] /
[2021-08-13] MEDS ORDERED: FUROSEMIDE 10 MG/ML 4 ML VIAL IV STA (10:05)
--- NOTE | 2021-08-13 10:53 | XR ---
EXAMINATION TYPE: XR chest 1V portable DATE OF EXAM: 08/13/2021 COMPARISON: Chest x-ray 08/12/2021 HISTORY: Congestive heart failure TECHNIQUE: Single frontal view of the chest is obtained. FINDINGS: The entire chest is not included on the exam. Some minimal patchy densities suspected the l eft lung base, left hemidiaphragm is obscured. Cardiac mediastinal silhouette is stable, heart is enl arged. No evident pneumothorax. There is azygos lobe noted as on prior. Patient is rotated. Bones are unchanged. Right hemidiaphragm mildly elevated as on prior IMPRESSION: Stable cardiomegaly, there may be basilar atelectasis or edema, correlate to exclude pne umonia
--- NOTE | 2021-08-13 11:20 | P.PN ---
Subjective Progress Note Date: 08/13/21 Principal diagnosis: Acute on chronic hypercapnic respiratory failure, multifactorial This is a 56-year-old white male with history of morbid obesity, patient presented to the emergency room yesterday with 1 week history of not feeling well. Patient has been feeling short of breath, lightheaded, weak, and has been developing lower extremities edema. Patient was found to be bradycardic, he was hypercapnic, required placement on BiPAP since his ABG reflected a significant hypercapnia with CO2 as high as 90. In the meantime the patient was noted to have profound bradycardia/sinus bradycardia, he was also noted to have congestive heart failure/interstitial edema. Patient was placed on BiPAP, and he was found to have profound hypothyroidism with very low T4, and elevated TSH. Clearly this is a presentation of profound hypothyroidism with bradycardia, and hypercapnic respiratory failure with hypoventilation. Considering the presentation, I was notified about this patient from the ER, and I recommended that the patient starts on levothyroxine IV initially, I also recommended Solu- Cortef 100 mg twice a day, and the patient will need IV replacement of his levothyroxine. According to the patient he ran out of his medication/levothyroxine and his usual dose is 225 g daily. And could not get a refill from his primary care physician, and his old physician would not refill it for him. Hence the patient ended up coming to the ER with multiple complaints, most likely all related to his profound hypothyroidism. I saw the patient in the ICU, and he is still on BiPAP. He is presently on IPAP of 18 and EPAP of 5, FiO2 35%. He is on IV fluid at [facility], he received Lasix already earlier. Patient was reevaluated today on 08/12/2021, patient is feeling much better today, he is off BiPAP, sitting at a bedside chair, he is on few liters nasal cannula, O2 sats is 96%, denies any shortness of breath or cough or wheezing. Patient was transitioned to oral levothyroxine, he is off IV levothyroxine, heart rate is 60, he is hemodynamically stable, and he does not seem to be in any distress. Hence , plan to transfer the patient out of the ICU to a monitor bed on the cardiac floor. His WBC count is 13.1 hemoglobin is 16.5. Electrolytes are normal bicarb is 39, implies that the patient has chronic hypercapnic arrest were failure with metabolic compensation. His BUN is 30 creatinine 1.11. Patient was reevaluated today on 08/09/2021, patient is resting in the chair doing well, he is on 5 L nasal cannula, and his O2 saturations 95%. Chest x-ray continues to show mild interstitial edema and I gave him another dose of Lasix today 40 mg IV push. Hemodynamically the patient is stable, his bradycardia has resolved, and clinically he is feeling much better than he has ever felt. Patient is being considered for discharge planning, and I will clear her for discharge if he is cleared by other consultants including cardiology on the case. Patient is now back on his levothyroxine replacement therapy at 250 g daily orally. Patient will need eventual evaluation for obstructive sleep apnea, and he needs to follow-up with Dr. Askew. Labs today including CBC, basic metabolic profile, renal profile, are all unremarkable. Objective - Vital Signs Vital signs: Vital Signs Temp 97.0 F L 08/13/21 04:00 Pulse 61 08/13/21 09:43 Resp 15 08/13/21 06:00 BP 154/111 08/13/21 07:00 Pulse Ox 86 L 08/13/21 09:43 Intake & Output 08/12/21 08/13/21 08/13/21 18:59 06:59 18:59 Intake Total 900 660 Output Total 0 0 Balance 900 660 Intake: Oral 900 660 Output: Urine 0 0 Other: Voiding Method Urinal Urinal # Voids 1 1 - Exam Physical Exam: Revealed 56-year-old white male morbidly obese, on 5 L nasal cannula asymptomatic. Head: Atraumatic normocephalic. HEENT:[Neck is supple.] [No neck masses.] [No thyromegaly.] [No JVD.] About the class IV. Mallampati class IV Chest: [Symmetrical chest expansion, crackles at the bases. No rhonchi and no wheezes Cardiac Exam: Bradycardic. [Normal S1 and S2, no S3 gallop, no murmur.] Abdomen: [Soft, nontender, no megaly, no rebound, no guarding, normal bowel sounds.] Extremities: [No clubbing, 1+ bipedal edema, diminished distal pulses bilat erally in both feet, and some bluish discoloration noted in the toes bilaterally. Neurological Exam: Alert and oriented 3, no gross focal deficits. Psychiatric: Normal mood affect and normal mental status examination. Skin: No rashes. Musculoskeletal: No deformities and no limitation in range of motion. - Labs CBC & Chem 7: 08/12/21 06:18 08/12/21 06:18 Assessment and Plan Assessment: Impression: Severe hypothyroidism, patient has been noncompliant with his replacement therapy which is usually levothyroxine 225 g daily. Bradycardia secondary to profound hypothyroidism/almost a myxedema crisis. Morbid obesity Obstructive sleep apnea syndrome Acute on chronic hypercapnic respiratory failure secondary to obstructive sleep apnea syndrome, and exacerbated by his profound hypothyroidism. History of thyroid cancer and previous surgery History of degenerative joint disease. Suspect mild component of diastolic congestive heart failure, exacerbated by his profound bradycardia on presentation. Recommendation: Continue oral levothyroxine. Continue oxygen Diuresis with 40 mg of Lasix IV push today. Patient will eventually need outpatient sleep study and evaluation, would strongly recommend that he sees Dr. Askew on follow-up for sleep evaluation. Consider discharge planning home if cleared by other consultants. Must have follow-up with Dr. Askew regarding his obstructive sleep apnea and will need outpatient workup. Time with Patient: Less than 30
--- NOTE | 2021-08-13 12:52 | P.DS ---
Providers Date of admission: 08/10/21 20:48 Expected date of discharge: 08/13/21 Attending physician: Korey Sunshine Consults: 08/10/21 20:48 Consult Physician Urgent Consulting Provider: [facility] Reason/Comments: Bradycardia, hypercapnia Do you want consulting provider notified?: Yes Consult Physician Urgent Consulting Provider: Jose E De Oliveira Reason/Comments: Dyspnea Do you want consulting provider notified?: Yes Primary care physician: [facility] Course: HISTORY OF PRESENT ILLNESS This is a 56-year-old male patient of Dr. Martínez with past medical history of thyroid cancer status post thyroidectomy, gastroesophageal reflux disease, hypertension, sciatica, chronic gout, generalized osteoarthritis, Covid positive and July 2020. And having increased difficulty at night. His noticed that his lips turned blue and he was hallucinating and EMS was called and he was brought into [facility] emergency center for evaluation. Patient does not have a CPAP at home and has not been tested for sleep apnea. He gives history that he was following with uke operator but that physician had retired and he was unable to get his thyroid medication from the new physician. He last saw his PCP 6 months ago. His girlfriend normally handles his medications and he has not been taking them for the past month. Patient was found to be afebrile, heart rate in the 50s, blood pressure initially to let her in , pulse ox 85% EKG was sinus bradycardia with no acute ST changes. WBC 12.7, hemoglobin 16.7, platelet count 261. Sodium 137, potassium 5.0, chloride 94, CO2 35, BUN 27 creatinine 1.16, blood sugar 100. INR 1.1. Magnesium 2.5. Liver function tests were normal. TSH 42.2, free T4 0.19. Albumin 3.9. Lactic acid 2. Troponin 0.013. ProBNP 603. ABGs pH 7.31, pCO2 79, PaO2 90, bicarbonate 40, CO2 43 O2 saturation 95, base excess to keep foot 8. Coronavirus PCR not detected. Analysis showed 2+ protein. Chest x-ray reveals CHF. Repeat chest x-ray reveals correlate for pulmonary venous hypertension and interstitial edema, congestive heart failure. CT of the chest revealed bilateral diffuse mild to moderate opacities with small right pleural effusion. Pattern favors interstitial edema versus atelectasis. Superimposed infiltrates cannot be entirely excluded. Echocardiogram reveals EF of 55-60%, study was some optimal due to morbid obesity. Patient was admitted into intensive care unit, currently on BiPAP, consults in place with pulmonary medicine, cardiology. 08/12: She remains in the intensive care unit. He is off BiPAP, currently on 3 L nasal cannula with pulse ox of 96%. His breathing and shortness of breath is much improved. He denies having any palpitations. He has been transitioned from IV levothyroxine to oral at 250 g daily. He has been afebrile, heart rate in the 60s, blood pressure 152/95. Repeat blood work reveals WBC 13.1, hem oglobin 16.5. Sodium 136, potassium 4.6, chloride 95, CO2 to 39, BUN 30 creatinine 1.11. Chest x-ray is limited but demonstrates no significant interval change. Correlate for diffuse pneumonia or CHF. Pulmonary has placed orders to transfer out of the intensive care unit. 08/13: Patient remains in the intensive care unit waiting for a bed downgraded to [facility] with telemetry. Patient was seen this morning by medicine and cardiology and cleared for discharge. Chest x-ray reveals cardiomegaly, there may be atelectasis or edema, correlate to exclude pneumonia. Patient has been afebrile, heart rate in the 60s, blood pressure 144/111. Pulse ox 93% on 4 L nasal cannula. PO with ambulation dropped to 86% and home oxygen therapy was arranged by therapeutic case manager. Patient will be discharged home today in stable condition. DISCHARGE DIAGNOSES 1. Acute hypoxic and hypercapnic respiratory failure secondary to acute diastolic heart failure. 2. Suspected obstructive sleep apnea. 3. History of thyroid cancer, severe hypothyroidism noncompliant with medication. 4. Hypertensive emergency status post IV hydralazine and IV Lasix. 5. Hypertension, uncontrolled secondary to noncompliance. 6. Bradycardia secondary to hypothyroisism. 7. Chronic gout. 8. Generalized osteoarthritis. 9. Gastroesophageal reflux disease. 10. Morbid obesity with BMI of 67. 11. Chronic hypoxic respiratory failure requiring home oxygen therapy DISCHARGE PLAN Return home. Greater than 35 minutes was utilized and coordinating patient's discharge. Impression and plan of care have been directed as dictated by the signing physician. Pati Batista nurse practitioner acting as scribe for signing physician. Patient Condition at Discharge: Stable Plan - Discharge Summary Discharge Rx Participant: Yes New Discharge Prescriptions: New amLODIPine [Norvasc] 5 mg PO BID #60 tab Levothyroxine Sodium [Synthroid] 250 mcg PO DAILY@0630 #30 tab Losartan-Hctz 50-12.5 mg [Hyzaar 50-12.5] 1 each PO DAILY #30 tab hydrALAZINE HCL [Apresoline] 50 mg PO TID #90 tab Continue Furosemide [Lasix] 20 mg PO BID allopurinoL [Zyloprim] 300 mg PO DAILY Discontinued Levothyroxine Sodium [Synthroid] 25 mcg PO DAILY Levothyroxine Sodium [Synthroid] 200 mcg PO DAILY Indomethacin [Indocin] 50 mg PO BID Discharge Medication List Furosemide [Lasix] 20 mg PO BID 12/17/18 [History] allopurinoL [Zyloprim] 300 mg PO DAILY 12/17/18 [History] Levothyroxine Sodium [Synthroid] 250 mcg PO DAILY@0630 #30 tab 08/13/21 [Rx] Losartan-Hctz 50-12.5 mg [Hyzaar 50-12.5] 1 each PO DAILY #30 tab 08/13/21 [Rx] amLODIPine [Norvasc] 5 mg PO BID #60 tab 08/13/21 [Rx] hydrALAZINE HCL [Apresoline] 50 mg PO TID #90 tab 08/13/21 [Rx] Follow up Appointment(s)/Referral(s): Meghna Whitt MD [STAFF PHYSICIAN] - 1 Week (Office will call patient with an appointment date and time. ) Jeri Tena MD [STAFF PHYSICIAN] - 08/19/21 1:00 pm (Please call your insurance company and set up Dr. Tena as primary doctor prior to appointment. Please arrive to appointment at 12:00 to fill out paperwork. ) Srinivasan Amor MD [REFERRING] - (Please call so see if this [employer] takes your insurance. If Dr. Amor or Dr. Dorantes do not take your insurance, call the number on the back of your insurance card to see who is in network. Office does accept insurance. Need a referral from Dr. Tena at follow up appointment. ) [facility],Equipment [NON-STAFF] - (*Please call [facility] once home to arrange delivery of oxygen concentrator. ) Shani Dorantes MD [STAFF PHYSICIAN] - (Please call so see if this [employer] takes your insurance. If Dr. Amor or Dr. Dorantes do not take your insurance, call the number on the back of your insurance card to see who is in network. RN attempted to call. Office closed.) Eliana Askew MD [STAFF PHYSICIAN] - 09/10/21 1:00 pm Patient Instructions/Handouts: Heart Failure (DC), Sleep Apnea (GEN), Hypo thyroidism (DC), Bradycardia (DC) Activity/Diet/Wound Care/Special Instructions: *Purchase a pulse oximeter to monitor oxygen levels from any pharmacy. Discharge Disposition: HOME SELF-CARE
[2021-08-13 14:01] VITALS: RESP 19; TEMP 98.4
[2021-08-13] MEDS: hydrALAZINE HCL 20 MG/ML 1 ML VIAL IVP PRN (14:51)
[2021-08-13] MEDS ORDERED: hydrALAZINE HCL 50 MG TAB PO SCH (16:30)
[2021-08-13 18:04] VITALS: BP 151/90; PULSE 72
== END 2021-08-13 19:00 | disposition home or self-care (01) | DRG 291 ==
LOC: EC 17:02 → 3SCARD 20:48 → 2SICU 22:17
PROVIDERS: ADMIT Internal Medicine Geriatric Medicine; ATTEND Internal Medicine Geriatric Medicine
PROC: 5A09357 Assistance with Respiratory Ventilation, Less than 24 Consecutive Hours, Continuous Positive Airway Pressure (ICD-10-PCS; principal; 2021-08-10)
PROC: 5A0935A Assistance with Respiratory Ventilation, Less than 24 Consecutive Hours, High Flow/Velocity Cannula (ICD-10-PCS; 2021-08-13)
DX: I11.0 Hypertensive heart disease with heart failure (principal); I50.31 Acute diastolic (congestive) heart failure; J96.21 Acute and chronic respiratory failure with hypoxia; J96.22 Acute and chronic respiratory failure with hypercapnia; Z68.44 Body mass index [BMI] 60.0-69.9, adult; I16.1 Hypertensive emergency; Z85.850 Personal history of malignant neoplasm of thyroid; D75.1 Secondary polycythemia; E66.01 Morbid (severe) obesity due to excess calories; E89.0 Postprocedural hypothyroidism; G47.33 Obstructive sleep apnea (adult) (pediatric); Z20.822 Contact with and (suspected) exposure to COVID-19; I27.20 Pulmonary hypertension, unspecified; K21.9 Gastro-esophageal reflux disease without esophagitis; M15.9 Polyosteoarthritis, unspecified; M1A.9XX0 Chronic gout, unspecified, without tophus (tophi); R00.1 Bradycardia, unspecified; Z79.890 Hormone replacement therapy; Z79.899 Other long term (current) drug therapy; Z82.0 Family history of epilepsy and other diseases of the nervous system; Z83.3 Family history of diabetes mellitus; Z86.16 Personal history of COVID-19; Z91.14 Patient's other noncompliance with medication regimen; Z99.81 Dependence on supplemental oxygen
CPT/HCPCS: 36415; 36600; 71045; 71046; 71250; 80048; 80053; 82805; 83605; 83735; 83880; 84439; 84443; 84484; 85025; 85379; 85610; 85730; 87635; 93005; 93308; 94660; 96374; 96375; 99291

== ENCOUNTER 2022-06-15 15:01 | Emergency (ER) | payer OTHER ==
[2022-06-15 15:33] VITALS: BP 153/95; PULSE 66; RESP 18; TEMP 97
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
--- NOTE | 2022-06-15 16:58 | XR ---
EXAMINATION TYPE: XR lumbar spine 2 or 3V DATE OF EXAM: 06/15/2022 4:51 PM INDICATION: Patient age:Male; 57 years old; Reason for study: pain; COMPARISON: None TECHNIQUE: Frontal, lateral and coned in L5-S1 lateral views of the spine. FINDINGS: Multilevel disc degeneration changes of the spine with osteophyte formation and disc space narrowing. Scattered facet joint arthropathy is present.. No evidence of any acute osseous pathology. No evidence of loss of vertebral body height is seen. There is normal alignment of the lumbar verte bral bodies. No significant degeneration changes throughout the spine. IMPRESSION: Mild multilevel disc degeneration changes without evidence of fracture.
[2022-06-15] MEDS ORDERED: ORPHENADRINE 30 MG/ML 2 ML VIAL IM STA (19:26)
[2022-06-15] MEDS ORDERED: DEXAMETHASONE SOD PHOSPHATE 10 MG/ML 1 ML VIAL IM STA (19:26)
[2022-06-15] MEDS ORDERED: KETOROLAC 15 MG/ML 1 ML VIAL IM STA (19:26)
[2022-06-15] MEDS ORDERED: ACET/COD 300 MG/30 MG STARTER PACK 6 TAB BTL PO STA (20:22)
== END 2022-06-15 20:36 | disposition home or self-care (01) ==
LOC: EC 15:01
DX: M54.30 Sciatica, unspecified side (principal); I10 Essential (primary) hypertension; Z88.0 Allergy status to penicillin; Z79.899 Other long term (current) drug therapy; Z86.16 Personal history of COVID-19
CPT/HCPCS: 99283; 96372 ×3; 72100; J1100; J2360; J1885

== ENCOUNTER 2022-09-17 11:47 | Inpatient (IN) | payer OTHER ==
[2022-09-17] MEDS ORDERED: IBUPROFEN 600 MG TAB PO STA (12:28)
[2022-09-17] MEDS ORDERED: ACETAMINOPHEN TAB 500 MG TAB PO STA (12:28)
--- NOTE | 2022-09-17 12:31 | ED ---
General Adult HPI - General Chief complaint: Shortness of Breath Stated complaint: Fever Time Seen by Provider: 09/17/22 12:00 Source: patient, family, RN notes reviewed, old records reviewed Mode of arrival: wheelchair Limitations: no limitations - History of Present Illness Initial comments: This a 57-year-old male presents emergency Department with a past medical history significant for renal cell carcinoma. Patient had a procedure yesterday for embolization of that tumor and he got home and had a fever since. According to the his temperature over 102 since they've been home. Patient denies any chills patient denies any cough or shortness of breath per patient denies any chest pain. Patient's abdominal pain patient denies nausea or vomiting. Patient denies any dysuria hematuria urinary frequency. Patient denies any lesions or areas of redness particularly around the site that the probe yesterday. Patient states he only has been feeling weak and tired. Patient states home his pulse ox was dropping down into the mid 80s low 80s so he increased his oxygen which she is normally on up to 5 L. Patient states normally his pulse ox on a couple liters is at about 91-93% - Related Data Home Medications Medication Instructions Recorded Confirmed allopurinoL [Zyloprim] 300 mg PO DAILY 12/17/18 09/17/22 Acetaminophen Tab [Tylenol Tab] 1,000 mg PO Q8H 09/17/22 09/17/22 Colchicine 0.6 mg PO DAILY 09/17/22 09/17/22 Furosemide [Lasix] 40 mg PO BID 09/17/22 09/17/22 Gabapentin [Neurontin] 100 mg PO BID 09/17/22 09/17/22 Indomethacin [Indocin] 50 mg PO TID 09/17/22 09/17/22 Levothyroxine Sodium 300 mcg PO DAILY 09/17/22 09/17/22 Montelukast Sodium [Singulair] 10 mg PO HS 09/17/22 09/17/22 amLODIPine [Norvasc] 10 mg PO DAILY 09/17/22 09/17/22 oxyCODONE HCL [OxyIR] 5 mg PO Q6H PRN 09/17/22 09/17/22 traMADol HCL 50 mg PO BID PRN 09/17/22 09/17/22 Allergies Allergy/AdvReac Type Severity Reaction Status Date / Time Penicillins Allergy Rash/Hives Verified 09/17/22 15:05 Review of Systems ROS Statement: Those systems with pertinent positive or pertinent negative responses have been documented in the HPI. ROS Other: All systems not noted in ROS Statement are negative. Past Medical History Past Medical History: Cancer, GERD/Reflux, Hypertension, Thyroid Disorder Additional Past Medical History / Comment(s): Pt tested covid + in [facility] ER on 08/07/20. Thyroid cancer with thyroidectomy, sciatica with coexisting acute pyriformis syndrome and lumbar discogenic pain R side L$-L%, lasix for bilateral lower leg/ankle edema, gout bilateral feet, past staph infections/wound base of skull/feet-pt does not recall if MRSA. History of Any Multi-Drug Resistant Organisms: None Reported Past Surgical History: Tonsillectomy Additional Past Surgical History / Comment(s): thyroid ca - thyroidectomy Past Anesthesia/Blood Transfusion Reactions: No Reported Reaction Past Psychological History: No Psychological Hx Reported Smoking Status: Never smoker Past Alcohol Use History: Occasional Past Drug Use History: None Reported - Past Family History Father History Unknown: Yes Additional Family Medical History / Comment(s): Father left when pt was 9 yrs old. Mother History Unknown: Yes Additional Family Medical History / Comment(s): Pt does not have much contact with his mother General Exam - General Exam Comments Initial Comments: GENERAL: Patient is well-developed and well-nourished. Patient is nontoxic and well- hydrated and is in no acute distress. ENT: Neck is soft and supple. No significant lymphadenopathy is noted. Oropharynx is clear. Moist mucous membranes. Neck has full range of motion without eliciting any pain. EYES: The sclera were anicteric and conjunctiva were pink and moist. Extraocular movements were intact and pupils were equal round and reactive to light. Eyeli ds were unremarkable. PULMONARY: Unlabored respirations. Good breath sounds bilaterally. No audible rales rhonchi or wheezing was noted. CARDIOVASCULAR: There is a regular rate and rhythm without any murmurs gallops or rubs. ABDOMEN: Soft and nontender with normal bowel sounds. SKIN: Skin is clear with no lesions or rashes and otherwise unremarkable. NEUROLOGIC: Patient is alert and oriented x3. Cranial nerves II through XII are grossly intact. Motor and sensory are also intact. Normal speech, volume and content. Symmetrical smile. MUSCULOSKELETAL: Normal extremities with adequate strength and full range of motion. No lower extremity swelling or edema. No calf tenderness. LYMPHATICS: No significant lymphadenopathy is noted PSYCHIATRIC: Normal psychiatric evaluation. [id number] Limitations: no limitations Course Vital Signs 09/17/22 09/17/22 11:58 14:49 Temperature 99.3 F Pulse Rate 99 97 Respiratory 22 20 Rate Blood Pressure 103/71 116/60 O2 Sat by Pulse 85 L 90 L Oximetry Medical Decision Making - Medical Decision Making EKG was interpreted by myself shows a sinus rhythm at 91 bpm UT interval 170 70 QRS 102 QT interval 344 QTC is 393. Patient's EKG shows no ST segment elevation or depression. Was pt. sent in by a medical professional or institution (, PA, PRESIDENT, urgent care, hospital, or [facility]...) When possible be specific @ -I spoke with the patient's oncological surgeon and he wanted the patient come to the emergency department Did you speak to anyone other than the patient for history (EMS, parent, family, police, friend...)? What history was obtained from this source @ -Surgeon gave me the history of his most recent surgery Did you review nursing and triage notes (agree or disagree)? Why? @ -I reviewed and agree with nursing and triage notes Were old charts reviewed (outside hosp., previous admission, EMS record, old EKG, old radiological studies, urgent care reports/EKG's, [facility] records)? Report findings @ -I reviewed prior lab work and compared to today's labwork. Differential Diagnosis (chest pain, altered mental status, abdominal pain women, abdominal pain men, vaginal bleeding, weakness, fever, dyspnea, syncope, headache, dizziness, GI bleed, back pain, seizure, CVA, palpatations, mental health, musculoskeletal)? @ -not applicable EKG interpreted by me (3pts min.). @ -As above X-rays interpreted by me (1pt min.). @ -Chest x-ray was interpreted by myself and shows a questionable infiltrate versus atelectasis CT interpreted by me (1pt min.). @ -None done U/S interpreted by me (1pt. min.). @ -None done What testing was considered but not performed or refused? (CT, X-rays, U/S, labs)? Why? @ -None What meds were considered but not given or refused? Why? @ -None Did you discuss the management of the patient with other professionals (professionals i.e. , PA, PRESIDENT, lab, RT, psych nurse, social media designer, commercial underwriter, teacher, chief operations officer, top case assembler)? Give summary @ -Spoke with the [facility] see agreed to admit the patient admitted the patient wrote admitting orders Was smoking cessation discussed for >3mins.? @ -No Was critical care preformed (if so, how long)? @ -No Were there social determinants of health that impacted care today? How? (Homelessness, low income, unemployed, alcoholism, drug addiction, transportation, low edu. Level, literacy, decrease access to med. care, group home, rehab)? @ -No Was there de-escalation of care discussed even if they declined (Discuss DNR or withdrawal of care, Hospice)? DNR status @ -No What co-morbidities impacted this encounter? (DM, HTN, Smoking, COPD, CAD, Cancer, CVA, ARF, Chemo, Hep., AIDS, mental health diagnosis, sleep apnea, morbid obesity)? @ -Renal carcinoma Was patient admitted / discharged? Hospital course, mention meds given and route, prescriptions, significant lab abnormalities, going to OR and other pertinent info. @ -Patient came in complaining of having a fever after he had a procedure on hi s kidney. Patient was given antibiotics prophylactically even though no definitive source was noted there is a questionable infiltrate in the right side but was as high white count we went ahead and treated him with Rocephin and vancomycin. I spoke with the [facility] where they will see the patient I also consulted Dr. Melgoza and oncology. Undiagnosed new problem with uncertain prognosis? @ -No Drug Therapy requiring intensive monitoring for toxicity (Heparin, Nitro, Insulin, Cardizem)? @ -No Were any procedures done? @ -No Diagnosis/symptom? @ -Pneumonia Acute, or Chronic, or Acute on Chronic? @ -Acute Uncomplicated (without systemic symptoms) or Complicated (systemic symptoms)? @ -Complicated Side effects of treatment? @ -No Exacerbation, Progression, or Severe Exacerbation? @ -No Poses a threat to life or bodily function? How? (Chest pain, USA, LA, pneumonia, PE, COPD, DKA, ARF, appy, cholecystitis, CVA, Diverticulitis, Homicidal, Suicidal, threat to staff... and all critical care pts) @ -Yes this could lead to sepsis and end organ dysfunction - Lab Data Result diagrams: 09/17/22 14:01 09/17/22 14:01 Lab Results 09/17/22 09/17/22 09/17/22 Range/Units 14:01 14:01 14:01 WBC 38.3 H (3.8-10.6) k/uL RBC 5.40 (4.30-5.90) m/uL Hgb 14.4 (13.0-17.5) gm/dL Hct 45.8 (39.0-53.0) % MCV 84.9 (80.0-100.0) fL MCH 26.6 (25.0-35.0) pg MCHC 31.3 (31.0-37.0) g/dL RDW 15.2 (11.5-15.5) % Plt Count 251 (150-450) k/uL MPV 8.2 Neutrophils % 90 % Lymphocytes % 3 % Monocytes % 5 % Eosinophils % 0 % Basophils % 0 % Neutrophils # 34.5 H (1.3-7.7) k/uL Lymphocytes # 1.3 (1.0-4.8) k/uL Monocytes # 2.0 H (0-1.0) k/uL Eosinophils # 0.2 (0-0.7) k/uL Basophils # 0.1 (0-0.2) k/uL Manual Slide Review Performed Hypochromasia Slight PT 11.4 (9.0-12.0) sec INR 1.1 (<1.2) APTT 25.4 (22.0-30.0) sec Sodium 132 L (137-145) mmol/L Potassium 4.1 (3.5-5.1) mmol/L Chloride 97 L (98-107) mmol/L Carbon Dioxide 29 (22-30) mmol/L Anion Gap 6 mmol/L BUN 23 H (9-20) mg/dL Creatinine 1.53 H (0.66-1.25) mg/dL Est GFR (CKD-EPI)AfAm 57 (>60 ml/min/1.73 sqM) Est GFR (CKD-EPI)NonAf 49 (>60 ml/min/1.73 sqM) Glucose 140 H (74-99) mg/dL Plasma Lactic Acid Radames (0.7-2.0) mmol/L Calcium 7.6 L (8.4-10.2) mg/dL Total Bilirubin 1.4 H (0.2-1.3) mg/dL AST 36 (17-59) U/L ALT 19 (4-49) U/L Alkaline Phosphatase 89 (38-126) U/L Total Protein 5.3 L (6.3-8.2) g/dL Albumin 2.7 L (3.5-5.0) g/dL Influenza Type A (PCR) (Not Detectd) Influenza Type B (PCR) (Not Detectd) RSV (PCR) (Not Detectd) SARS-CoV-2 (PCR) (Not Detectd) 09/17/22 09/17/22 Range/Units 14:01 14:50 WBC (3.8-10.6) k/uL RBC (4.30-5.90) m/uL Hgb (13.0-17.5) gm/dL Hct (39.0-53.0) % MCV (80.0-100.0) fL MCH (25.0-35.0) pg MCHC (31.0-37.0) g/dL RDW (11.5-15.5) % Plt Count (150-450) k/uL MPV Neutrophils % % Lymphocytes % % Monocytes % % Eosinophils % % Basophils % % Neutrophils # (1.3-7.7) k/uL Lymphocytes # (1.0-4.8) k/uL Monocytes # (0-1.0) k/uL Eosinophils # (0-0.7) k/uL Basophils # (0-0.2) k/uL Manual Slide Review Hypochromasia PT (9.0-12.0) sec INR (<1.2) APTT (22.0-30.0) sec Sodium (137-145) mmol/L Potassium (3.5-5.1) mmol/L Chloride (98-107) mmol/L Carbon Dioxide (22-30) mmol/L Anion Gap mmol/L BUN (9-20) mg/dL Creatinine (0.66-1.25) mg/dL Est GFR (CKD-EPI)AfAm (>60 ml/min/1.73 sqM) Est GFR (CKD-EPI)NonAf (>60 ml/min/1.73 sqM) Glucose (74-99) mg/dL Plasma Lactic Acid Radames 1.6 (0.7-2.0) mmol/L Calcium (8.4-10.2) mg/dL Total Bilirubin (0.2-1.3) mg/dL AST (17-59) U/L ALT (4-49) U/L Alkaline Phosphatase (38-126) U/L Total Protein (6.3-8.2) g/dL Albumin (3.5-5.0) g/dL Influenza Type A (PCR) Not Detected (Not Detectd) Influenza Type B (PCR) Not Detected (Not Detectd) RSV (PCR) Not Detected (Not Detectd) SARS-CoV-2 (PCR) Not Detected (Not Detectd) Disposition Clinical Impression: Pneumonia, History of renal cell carcinoma Disposition: ADMITTED IP TO THIS HOSP Referrals: Jeri Tena MD [Primary Care Provider] - 1-2 days Time of Disposition: 16:05
[2022-09-17 14:18] LABS: Basophils # (A) 0.1 k/uL (0-0.2); Basophils % (A) 0 %; Eosinophils # (A) 0.2 k/uL (0-0.7); Eosinophils % (A) 0 %; HCT 45.8 % (39.0-53.0); HGB 14.4 gm/dL (13.0-17.5); Hypochromasia Slight; Lymphocytes # (A) 1.3 k/uL (1.0-4.8); Lymphocytes % (A) 3 %; MCH 26.6 pg (25.0-35.0); MCHC 31.3 g/dL (31.0-37.0); MCV 84.9 fL (80.0-100.0); Mean Platelet Volume 8.2; Monocytes % (A) 5 %; Neutrophils # (A) 34.5 k/uL (1.3-7.7); Neutrophils % (A) 90 %; Platelet Count 251 k/uL (150-450); RDW 15.2 % (11.5-15.5); WBC 38.3 k/uL (3.8-10.6)
--- NOTE | 2022-09-17 14:21 | XR ---
EXAMINATION TYPE: XR chest 2V DATE OF EXAM: 09/17/2022 COMPARISON: 08/13/2021 HISTORY: Shortness of breath TECHNIQUE: Frontal and lateral views of the chest are obtained. FINDINGS: Scattered senescent parenchymal changes noted. Increased density right medial lung base may reflect vascular crowding or atelectasis. Developing inf iltrate is difficult to exclude. Correlate clinically. Heart size is stable. Mediastinal structures are stable and grossly unremarkable. No evidence for hilar prominence. Degenerative changes dorsal spine. IMPRESSION: 1. Increased density right medial lung base may reflect vascular crowding or atelectasis. Developing infiltrate is difficult to exclude. Correlate clinically.
[2022-09-17 14:26] LABS: INR 1.1 (<1.2); Partial Thromboplastin Time 25.4 sec (22.0-30.0); Prothrombin Time 11.4 sec (9.0-12.0)
[2022-09-17 14:30] LABS: Albumin 2.7 g/dL (3.5-5.0); Calcium 7.6 mg/dL (8.4-10.2); Potassium 4.1 mmol/L (3.5-5.1); Total Bilirubin 1.4 mg/dL (0.2-1.3); Total Protein 5.3 g/dL (6.3-8.2)
[2022-09-17] MEDS ORDERED: cefTRIAXone IN SWFI 1,000 MG/10 ML SYRINGE IVP STA (14:48)
[2022-09-17] MEDS ORDERED: VANCOMYCIN IV PER PHARMACY 1 EACH MISC MISCELLANE PRN (14:49)
[2022-09-17] MEDS ORDERED: VANCOMYCIN 2,500 MG in SODIUM CHLORIDE 0.9% 500 ML 500 ML IVPB ONE (15:15)
[2022-09-17] MEDS ORDERED: AZITHROMYCIN 500 MG in SODIUM CHLORIDE 0.9% 250 ML IVPB STA (16:05)
[2022-09-17] MEDS ORDERED: PNEUMONIA PROTOCOL UTILIZED 1 EACH MISC PO PRN (16:05)
--- NOTE | 2022-09-17 17:05 | P.CONS ---
History of Present Illness - Reason for Consult Consult date: 09/17/22 History of renal cell carcinoma - Chief Complaint Fever - History of Present Illness Mr. Boss is a 57-year-old gentleman with a past medical history significant for stage I renal cell carcinoma (T1b N0 M0) status post staged cryoablation performed on 09/14/2022 and 09/15/2022 who presents with fever. He underwent cryoablation of renal cell carcinoma at [facility] in [place] and noted that he tolerated procedure well without any complications. He arrived home and was being transported inside the home, when he slipped and fell in the garage. He noted being on the ground for a significant period of time. He denies any head trauma with the fall, noted he fell on his bottom. After this fall, he developed a fever with a Tmax of 102 F and was noted to be saturating in the 60s on home pulse ox monitor. He presented for additional management recommendations. In the ED, he was afebrile. Systolic blood pressures in the 110s to 100s were lower than previous hospital values. He was noted to be 85% on room air and was briefly placed on 5 L nasal cannula. Labs were significant for white blood cell count of 38.3 (ANC 34.5) along with creatinine 1.53 (baseline 0.9-1.1). Chest x-ray noted increased density in the right medial lung base, which may reflect vascular crowding or atelectasis cannot exclude a developing infiltrate. PCR for influenza A/B, RSV, and COVID-19 were negative. Blood cultures, sputum culture, UA with reflex culture, and Legionella urinary antigen were ordered. He was started on ceftriaxone, azithromycin, and vancomycin, and admitted to internal medicine for additional management recommendations. Review of Systems 14 point review of systems conducted with pertinent positives and noted per HPI Past Medical History Past Medical History: Cancer, GERD/Reflux, Hypertension, Thyroid Disorder Additional Past Medical History / Comment(s): Pt tested covid + in [facility] ER on 08/07/20. Thyroid cancer with thyroidectomy, sciatica with coexisting acute pyriformis syndrome and lumbar discogenic pain R side L$-L%, lasix for bilateral lower leg/ankle edema, gout bilateral feet, past staph infections/wound base of skull/feet-pt does not recall if MRSA. History of Any Multi-Drug Resistant Organisms: None Reported Past Surgical History: Tonsillectomy Additional Past Surgical History / Comment(s): thyroid ca - thyroidectomy Past Anesthesia/Blood Transfusion Reactions: No Reported Reaction Past Psychological History: No Psychological Hx Reported Smoking Status: Never smoker Past Alcohol Use History: Occasional Past Drug Use History: None Reported - Past Family History Father History Unknown: Yes Additional Family Medical History / Comment(s): Father left when pt was 9 yrs old. Mother History Unknown: Yes Additional Family Medical History / Comment(s): Pt does not have much contact with his mother Medications and Allergies Home Medications Medication Instructions Recorded Confirmed Type allopurinoL [Zyloprim] 300 mg PO DAILY 12/17/18 09/17/22 History Acetaminophen Tab [Tylenol Tab] 1,000 mg PO Q8H 09/17/22 09/17/22 History Colchicine 0.6 mg PO DAILY 09/17/22 09/17/22 History Furosemide [Lasix] 40 mg PO BID 09/17/22 09/17/22 History Gabapentin [Neurontin] 100 mg PO BID 09/17/22 09/17/22 History Indomethacin [Indocin] 50 mg PO TID 09/17/22 09/17/22 History Levothyroxine Sodium 300 mcg PO DAILY 09/17/22 09/17/22 History Montelukast Sodium [Singulair] 10 mg PO HS 09/17/22 09/17/22 History amLODIPine [Norvasc] 10 mg PO DAILY 09/17/22 09/17/22 History oxyCODONE HCL [OxyIR] 5 mg PO Q6H PRN 09/17/22 09/17/22 History traMADol HCL 50 mg PO BID PRN 09/17/22 09/17/22 History Allergies Allergy/AdvReac Type Severity Reaction Status Date / Time Penicillins Allergy Rash/Hives Verified 09/17/22 15:05 Physical Exam Vitals: Vital Signs Temp Pulse Resp BP Pulse Ox 09/17/22 14:49 97 20 116/60 90 L 09/17/22 11:58 99.3 F 99 22 103/71 85 L Intake and Output 09/17/22 09/17/22 09/17/22 06:59 14:59 22:59 Other: Weight 210.92 kg - Constitutional General appearance: cooperative, no acute distress, obese - EENT Eyes: EOMI - Respiratory Respiratory: bilateral: prolonged expiration - Cardiovascular Rhythm: regular - Gastrointestinal General gastrointestinal: normal bowel sounds, soft, no tenderness - Integumentary Integumentary: no rash - Neurologic Neurologic: CNII-XII intact Results CBC & Chem 7: 09/17/22 14:01 09/17/22 14:01 Labs: Abnormal Lab Results - Last 24 Hours (Table) 09/17/22 09/17/22 Range/Units 14:01 14:01 WBC 38.3 H (3.8-10.6) k/uL Neutrophils # 34.5 H (1.3-7.7) k/uL Monocytes # 2.0 H (0-1.0) k/uL Sodium 132 L (137-145) mmol/L Chloride 97 L (98-107) mmol/L BUN 23 H (9-20) mg/dL Creatinine 1.53 H (0.66-1.25) mg/dL Glucose 140 H (74-99) mg/dL Calcium 7.6 L (8.4-10.2) mg/dL Total Bilirubin 1.4 H (0.2-1.3) mg/dL Total Protein 5.3 L (6.3-8.2) g/dL Albumin 2.7 L (3.5-5.0) g/dL Chest x-ray: report reviewed, image reviewed Assessment and Plan (1) Neutrophilic leukocytosis Current Visit: Yes Status: Acute Code(s): D72.9 - DISORDER OF WHITE BLOOD CELLS, UNSPECIFIED SNOMED Code(s): 207682651 (2) History of renal cell carcinoma Current Visit: Yes Status: Chronic Code(s): Z85.528 - PERSONAL HISTORY OF OTHER MALIGNANT NEOPLASM OF KIDNEY SNOMED Code(s): 865253095 (3) Pneumonia Current Visit: Yes Status: Acute Code(s): J18.9 - PNEUMONIA, UNSPECIFIED ORGANISM SNOMED Code(s): 706337012 Plan: Fever, neutrophilic leukocytosis -Noted to have fever up to 102 F at home following cryoablation procedure for renal cell carcinoma -He denies any localizing signs or symptoms -Noted to have neutrophilic leukcytosis on initial presentation with ANC 34.4 -Chest x-ray revealed potential developing infiltrate in the medial portion of the right lung base; viral PCRs are negative -Agree with infectious workup ordered to date and empiric antibiotics given recent procedure -Neutrophilic leukocytosis likely secondary to recent procedure, but need to rule out superimposed infection with infectious work-up above Stage I renal cell carcinoma -He was originally hospitalized in May 2022 with shortness of breath noted incidentally to have liver lesion concerning for malignancy -CT abdomen and pelvis performed and patient noted nondescript liver lesion along with potential lesion near the hanny hepatis along with a left kidney mass concerning for renal cell carcinoma -MRI abdomen and pelvis was not able to be performed inpatient due to body habitus -MRI of the abdomen and pelvis on 07/18/2022 noted liver lesions being consistent with hemangiomas with no concern for malignancy. Left renal mass was measuring 5.1 cm -CT-guided biopsy of the left renal mass on 08/09/2022 was consistent with grade 1 clear-cell renal cell carcinoma -Underwent cryoablation at [facility] in [place] on 09/14/22 and 09/15/22 -He will need surveillance with annual CT chest for 5 years along with abdominal imaging annually for at least 3 years Time with Patient: Greater than 30
[2022-09-17 19:01] LABS: Appearance,Urine Turbid (Clear); Bacteria,Urine Many /hpf; Bilirubin,Urine 1+ (Negative); Blood,Urine Large (Negative); Color,Urine Yellow; Glucose,Urine (UA) Negative (Negative); Ketones,Urine Negative (Negative); Leukocyte Esterase,Urine Large (Negative); Mucus,Urine Occasional /hpf; Nitrite,Urine Negative (Negative); PH, Urine 5.5 (5.0-8.0); Protein,Urine 2+ (Negative); RBC,Urine 4 /hpf (0-5); Squamous Epithelial Cell,Urine 1 /hpf (0-4); WBC,Urine 122 /hpf (0-5)
[2022-09-17] MEDS ORDERED: AZITHROMYCIN 500 MG in SODIUM CHLORIDE 0.9% 250 ML IVPB ONE (21:00)
[2022-09-18] MEDS ORDERED: VANCOMYCIN 2,500 MG in SODIUM CHLORIDE 0.9% 500 ML 500 ML IVPB SCH (05:00)
--- NOTE | 2022-09-18 07:24 | XR ---
EXAMINATION TYPE: XR chest 2V DATE OF EXAM: 09/18/2022 COMPARISON: Chest x-ray from yesterday HISTORY: Pneumonia. TECHNIQUE: Frontal and lateral views of the chest are obtained. FINDINGS: Evaluation is suboptimal due to patient's large body habitus similar to prior. Low lung vo lumes and cardiomegaly with central increased opacities redemonstrated. Lateral view shows posterior basilar opacity. Suboptimal due to performed in wheelchair. The osseous structures are intact. IMPRESSION: CHF exacerbation is suspected. Cardiomegaly with mild to moderate central vascular conge stion is felt present. Posterior basilar acute infiltrate must be considered based on chest x-ray fin dings on lateral view. Correlate clinically.
[2022-09-18 11:35] LABS: HCT 46.3 % (39.6-50.0); HGB 13.6 g/dL (13.0-17.0); MCH 25.8 pg (27.0-32.0); MCHC 29.4 g/dL (32.0-37.0); MCV 87.7 fL (80.0-97.0); Mean Platelet Volume 10.5 fL (9.5-12.2); NRBC Per 100 WBC 0 /100 WBCS (0.0-0.0); Platelet Count 240 X 10*3/uL (140-440); RBC 5.28 X 10*6/uL (4.40-5.60); RDW 15.9 % (11.5-14.5); WBC 43.49 X 10*3/uL (4.50-10.00)
[2022-09-18 11:38] LABS: African American GFR (CKD) 34.3 (60.0-200.0); Albumin/Globulin Ratio 1.18 (1.60-3.17); Anion Gap 14.6 mmol/L (10.00-18.00); BUN/Creat Ratio 11.79 Ratio (12.00-20.00); Blood Urea Nitrogen 27.6 mg/dL (9.0-27.0); Calcium 8.3 mg/dL (8.7-10.3); Carbon Dioxide 23.3 mmol/L (20.0-27.5); Globulin 2.6 g/dL (1.6-3.3); Non-African American GFR(CKD) 29.6 (60.0-200.0); Potassium 4.9 mmol/L (3.5-5.5); Total Bilirubin 0.7 mg/dL (0.30-1.20); Total Protein 5.6 g/dL (6.2-8.2)
[2022-09-18 11:42] LABS: Basophils # (A) 0.04 X 10*3/uL (0.00-0.10); Basophils % (A) 0.1 %; Eosinophils # (A) 0.03 X 10*3/uL (0.04-0.35); Eosinophils % (A) 0.1 %; Immature Grans, Automated 2.8 %; Lymphocytes % (A) 3.4 %; Monocytes # (A) 3.18 X 10*3/uL (0.20-1.00); Monocytes % (A) 7.3 %; Neutrophils # (A) 37.53 X 10*3/uL (1.80-7.70); Neutrophils % (A) 86.3 %; RBC Morphology NORMAL
[2022-09-18 12:01] LABS: C Reactive Protein 39.7 mg/dL (0.00-0.80)
--- NOTE | 2022-09-18 14:57 | P.HPIM ---
History of Present Illness H&P Date: 09/17/22 Chief Complaint: Fever 57-year-old male presents emergency Department with a past medical history significant for renal cell carcinoma. Patient had a procedure yesterday for embolization of that tumor and he got home and had a fever since. According to the his temperature over 102 since they've been home. Patient denies any chills patient denies any cough or shortness of breath per patient denies any chest pain. Patient's abdominal pain patient denies nausea or vomiting. Patient denies any dysuria hematuria urinary frequency. Patient denies any lesions or areas of redness particularly around the site that the probe yesterday. Patient states he only has been feeling weak and tired. Patient states home his pulse ox was dropping down into the mid 80s low 80s so he increased his oxygen which she is normally on up to 5 L. Patient states normally his pulse ox on a couple liters is at about 91-93% In the ED, he was afebrile. Systolic blood pressures in the 110s to 100s were lower than previous hospital values. He was noted to be 85% on room air and was briefly placed on 5 L nasal cannula. Labs were significant for white blood cell count of 38.3 (ANC 34.5) along with creatinine 1.53 (baseline 0.9-1.1). Chest x-ray noted increased density in the right medial lung base, which may reflect vascular crowding or atelectasis cannot exclude a developing infiltrate. PCR for influenza A/B, RSV, and COVID-19 were negative. Blood cultures, sputum cult ure, UA with reflex culture, and Legionella urinary antigen were ordered. He was started on ceftriaxone, azithromycin, and vancomycin Review of Systems REVIEW OF SYSTEMS: CONSTITUTIONAL: No fever, no malaise, no fatigue. HEENT: No recent visual problems or hearing problems. Denied any sore throat. CARDIOVASCULAR: No chest pain, orthopnea, PND, no palpitations, no syncope. PULMONARY: No shortness of breath, no cough, no hemoptysis. GASTROINTESTINAL: No diarrhea, no nausea, no vomiting, no abdominal pain. NEUROLOGICAL: No headaches, no weakness, no numbness. HEMATOLOGICAL: Denies any bleeding or petechiae. GENITOURINARY: Denies any burning micturition, frequency, or urgency. MUSCULOSKELETAL/RHEUMATOLOGICAL: Denies any joint pain, swelling, or any muscle pain. ENDOCRINE: Denies any polyuria or polydipsia. The rest of the 14-point review of systems is negative. Past Medical History Past Medical History: Cancer, GERD/Reflux, Hypertension, Thyroid Disorder Additional Past Medical History / Comment(s): Pt tested covid + in [facility] ER on 08/07/20. Thyroid cancer with thyroidectomy, sciatica with coexisting acute pyriformis syndrome and lumbar discogenic pain R side L$-L%, lasix for bilateral lower leg/ankle edema, gout bilateral feet, past staph infections/wound base of skull/feet-pt does not recall if MRSA. History of Any Multi-Drug Resistant Organisms: None Reported Past Surgical History: Tonsillectomy Additional Past Surgical History / Comment(s): thyroid ca - thyroidectomy Past Anesthesia/Blood Transfusion Reactions: No Reported Reaction Past Psychological History: No Psychological Hx Reported Smoking Status: Never smoker Past Alcohol Use History: Occasional Past Drug Use History: None Reported - Past Family History Father History Unknown: Yes Additional Family Medical History / Comment(s): Father left when pt was 9 yrs old. Mother History Unknown: Yes Additional Family Medical History / Comment(s): Pt does not have much contact with his mother Medications and Allergies Home Medications Medication Instructions Recorded Confirmed Type allopurinoL [Zyloprim] 300 mg PO DAILY 12/17/18 09/17/22 History Acetaminophen Tab [Tylenol Tab] 1,000 mg PO Q8H 09/17/22 09/17/22 History Colchicine 0.6 mg PO DAILY 09/17/22 09/17/22 History Furosemide [Lasix] 40 mg PO BID 09/17/22 09/17/22 History Gabapentin [Neurontin] 100 mg PO BID 09/17/22 09/17/22 History Indomethacin [Indocin] 50 mg PO TID 09/17/22 09/17/22 History Levothyroxine Sodium 300 mcg PO DAILY 09/17/22 09/17/22 History Montelukast Sodium [Singulair] 10 mg PO HS 09/17/22 09/17/22 History amLODIPine [Norvasc] 10 mg PO DAILY 09/17/22 09/17/22 History oxyCODONE HCL [OxyIR] 5 mg PO Q6H PRN 09/17/22 09/17/22 History traMADol HCL 50 mg PO BID PRN 09/17/22 09/17/22 History Allergies Allergy/AdvReac Type Severity Reaction Status Date / Time Penicillins Allergy Rash/Hives Verified 09/17/22 15:05 Physical Exam Vitals: Vital Signs Temp Pulse Resp BP Pulse Ox 09/17/22 17:37 97 20 110/76 90 L 09/17/22 14:49 97 20 116/60 90 L 09/17/22 11:58 99.3 F 99 22 103/71 85 L Intake and Output 09/17/22 09/17/22 09/17/22 06:59 14:59 22:59 Other: Weight 210.92 kg PHYSICAL EXAMINATION: GENERAL: The patient is alert and oriented x3, not in any acute distress. Well developed, well nourished. HEENT: Pupils are round and equally reacting to light. EOMI. No scleral icterus. No conjunctival pallor. Normocephalic, atraumatic. No pharyngeal erythema. No thyromegaly. CARDIOVASCULAR: S1 and S2 present. No murmurs, rubs, or gallops. PULMONARY: Chest is clear to auscultation, no wheezing or crackles. ABDOMEN: Soft, nontender, nondistended, normoactive bowel sounds. No palpable organomegaly. MUSCULOSKELETAL: No joint swelling or deformity. EXTREMITIES: No cyanosis, clubbing, or pedal edema. NEUROLOGICAL: Gross neurological examination did not reveal any focal deficits. SKIN: No rashes. Results CBC & Chem 7: 09/18/22 07:40 09/18/22 07:40 Labs: Abnormal Lab Results - Last 24 Hours (Table) 09/17/22 09/17/22 Range/Units 14:01 14:01 WBC 38.3 H (3.8-10.6) k/uL Neutrophils # 34.5 H (1.3-7.7) k/uL Monocytes # 2.0 H (0-1.0) k/uL Sodium 132 L (137-145) mmol/L Chloride 97 L (98-107) mmol/L BUN 23 H (9-20) mg/dL Creatinine 1.53 H (0.66-1.25) mg/dL Glucose 140 H (74-99) mg/dL Calcium 7.6 L (8.4-10.2) mg/dL Total Bilirubin 1.4 H (0.2-1.3) mg/dL Total Protein 5.3 L (6.3-8.2) g/dL Albumin 2.7 L (3.5-5.0) g/dL Assessment and Plan Assessment: 1. Leukocytosis/fever; possibility of pain related to recent procedure versus pneumonia; white blood count is elevated at 38.70 - Patient had a fever of up to 102 and affect home; underwent cryoablation procedure of renal cell carcinoma - Chest x-ray completed in ED reveals developing infiltrate right lung base - Oncology is on board and recommending to continue with IV antibiotics - We will monitor CBC, CRP and pro-calcitonin 2. Acute renal injury; BUN/creatinine is elevated at 23/1.53 - We will start patient on IV fluid hydration; we will avoid nephrotoxins and hypotension; monitor strict STEPHY's, daily weights, renal function and e lectrolytes 3. Stage I renal cell carcinoma -He was originally hospitalized in May 2022 with shortness of breath noted incidentally to have liver lesion concerning for malignancy -CT abdomen and pelvis performed and patient noted nondescript liver lesion along with potential lesion near the hanny hepatis along with a left kidney mass concerning for renal cell carcinoma -MRI abdomen and pelvis was not able to be performed inpatient due to body habitus -MRI of the abdomen and pelvis on 07/18/2022 noted liver lesions being consistent with hemangiomas with no concern for malignancy. Left renal mass was measuring 5.1 cm -CT-guided biopsy of the left renal mass on 08/09/2022 was consistent with grade 1 clear-cell renal cell carcinoma -Underwent cryoablation at [facility] in [place] on 09/14/22 and 09/15/22 -He will need surveillance with annual CT chest for 5 years along with abdominal imaging annually for at least 3 years 4. Hypothyroidism; continue with levothyroxine 300 MCG daily 5. Hypertension; Norvasc 10 mg daily 6. Gout; stable on allopurinol 300 mg daily and colchicine 0.6 mg daily DVT prophylaxis; SCDs/subcu Lovenox CODE STATUS; full code
[2022-09-18] MEDS: IOPAMIDOL CONTRAST (ORAL USE) VIAL PO PRN ×2 (15:07→16:06)
--- NOTE | 2022-09-18 15:39 | P.CONS ---
History of Present Illness - Reason for Consult Consult date: 09/18/22 Fever, pneumonia Requesting physician: El Silva - Chief Complaint Increasing shortness of breath and left flank pain x 2 days - History of Present Illness Patient is a 57-year male with a past medical history difficult for hypertension hypothyroidism GERD history of thyroid cancer with thyroidectomy with a recent diagnosis of stage I renal cell carcinoma in this patient status post cryoablation performed on 09/14/2022 and 09/15/2022 patient was subsequent discharged home patient did mention after he got discharged home on arrival at the home the patient did have a fall landing on her back area has to call EMS to get him into the house after his fall the patient did develop a fever of 102 degrees on right and the patient was hypoxic with O2 sats in the 60s patient did call his oncologist at [facility] who advised the patient to go to the ER on prese ntation to the hospital 09/17/2022 the patient did have low-grade fever of 99.3 F patient was hypoxic with O2 sats of 85% currently 94% on 5 L nasal cannula patient was not hypotensive or need for pressors he did have a white count of 38,000 which is up to 43,000 today did have elevated BUN and creatinine liver enzymes are normal procalcitonin 5.94 urine has been positive with large leukocyte esterase more than 122 WBC patient did have a negative influenza RSV and COVID testing patient did have a chest x-ray increased density right medial lung base may reflect vascular crowding or atelectasis developing infiltrate not excluded patient also have a chest chest x-ray this morning CHF exacerbation is suspected he did have blood culture blood culture drawn which came a positive with an E. coli patient is currently being treated with the Rocephin and vancomycin infectious disease was comes was consulted for further management of antibiotic therapy Review of Systems Positive point has been mentioned in the HPI rest of the systems are negative Past Medical History Past Medical History: Cancer, GERD/Reflux, Hypertension, Thyroid Disorder Additional Past Medical History / Comment(s): Pt tested covid + in [facility] ER on 08/07/20. Thyroid cancer with thyroidectomy, sciatica with coexisting acute p yriformis syndrome and lumbar discogenic pain R side L$-L%, lasix for bilateral lower leg/ankle edema, gout bilateral feet, past staph infections/wound base of skull/feet-pt does not recall if MRSA. History of Any Multi-Drug Resistant Organisms: None Reported Past Surgical History: Tonsillectomy Additional Past Surgical History / Comment(s): thyroid ca - thyroidectomy Past Anesthesia/Blood Transfusion Reactions: No Reported Reaction Past Psychological History: No Psychological Hx Reported Additional Psychological History / Comment(s): Pt resides with his girlfriend of 10 years. He works virtually. He is independent. Smoking Status: Never smoker Past Alcohol Use History: Occasional Past Drug Use History: None Reported - Past Family History Father History Unknown: Yes Additional Family Medical History / Comment(s): Father left when pt was 9 yrs old. Mother History Unknown: Yes Additional Family Medical History / Comment(s): Pt does not have much contact with his mother Medications and Allergies Home Medications Medication Instructions Recorded Confirmed Type allopurinoL [Zyloprim] 300 mg PO DAILY 12/17/18 09/24/22 History Acetaminophen Tab [Tylenol] 1,000 mg PO Q8H 09/17/22 09/24/22 History Colchicine 0.6 mg PO DAILY 09/17/22 09/24/22 History Furosemide [Lasix] 40 mg PO BID 09/17/22 09/24/22 History Gabapentin [Neurontin] 100 mg PO BID 09/17/22 09/24/22 History Indomethacin [Indocin] 50 mg PO TID 09/17/22 09/24/22 History Levothyroxine Sodium 300 mcg PO DAILY 09/17/22 09/24/22 History Montelukast Sodium [Singulair] 10 mg PO HS 09/17/22 09/24/22 History amLODIPine [Norvasc] 10 mg PO DAILY 09/17/22 09/24/22 History oxyCODONE HCL [OxyIR] 5 mg PO Q6H PRN 09/17/22 09/24/22 History traMADol HCL 50 mg PO BID PRN 09/17/22 09/24/22 History cefTRIAXone [Rocephin] 2 gm IV Q24H 09/24/22 09/24/22 History Allergies Allergy/AdvReac Type Severity Reaction Status Date / Time Penicillins Allergy Rash/Hives Verified 09/24/22 07:03 Physical Exam Vitals: Vital Signs Temp Pulse Pulse Resp BP BP Pulse Ox 09/18/22 09:48 94 L 09/18/22 08:21 98.8 F 85 19 113/70 97 09/18/22 01:20 97.9 F 88 20 93/66 93 L 09/17/22 20:00 99.3 F 90 20 119/80 91 L 09/17/22 17:37 97 20 110/76 90 L 09/17/22 14:49 97 20 116/60 90 L Intake and Output 09/17/22 09/18/22 09/18/22 22:59 06:59 14:59 Intake Total 118 Balance 118 Intake: Oral 118 Other: # Voids 1 4 Weight 210.92 kg GENERAL DESCRIPTION: Middle-aged male lying in bed, no distress. No tachypnea or accessory muscle of respiration use. HEENT: Shows Pallor , no scleral icterus. Oral mucous membrane is dry. NECK: Trachea central, no thyromegaly. LUNGS: Unlabored breathing. Decreased breath sounds at the base HEART: S1, S2, regular rate and rhythm. No loud murmur ABDOMEN: Soft, no tenderness , guarding or rigidity, no organomegaly EXTREMITIES: No edema of feet. SKIN: No rash, no masses palpable. NEUROLOGICAL: The patient is awake, alert, oriented x3, mood and affect normal. Results CBC & Chem 7: 09/21/22 06:19 09/21/22 06:19 Labs: Abnormal Lab Results - Last 24 Hours (Table) 09/17/22 09/17/22 09/18/22 Range/Units 14:01 18:21 07:40 WBC (4.50-10.00) X 10*3/uL MCH (27.0-32.0) pg MCHC (32.0-37.0) g/dL RDW (11.5-14.5) % Immature Gran # (0.00-0.04) X 10*3/uL Neutrophils # 34.5 H (1.3-7.7) k/uL Monocytes # 2.0 H (0-1.0) k/uL Eosinophils # (0.04-0.35) X 10*3/uL BUN 27.6 H (9.0-27.0) mg/dL Creatinine 2.3 H (0.6-1.5) mg/dL Est GFR (CKD-EPI)AfAm 34.3 L (60.0-200.0) Est GFR (CKD-EPI)NonAf 29.6 L (60.0-200.0) BUN/Creatinine Ratio 11.79 L (12.00-20.00) Ratio Glucose 124 H (70-110) mg/dL Calcium 8.3 L (8.7-10.3) mg/dL C-Reactive Protein 39.70 H (0.00-0.80) mg/dL Total Protein 5.6 L (6.2-8.2) g/dL Albumin 3.0 L (3.8-4.9) g/dL Albumin/Globulin Ratio 1.18 L (1.60-3.17) g/dL Procalcitonin (0.02-0.09) ng/mL Urine Protein 2+ H (Negative) Urine Blood Large H (Negative) Urine Bilirubin 1+ H (Negative) Ur Leukocyte Esterase Large H (Negative) Urine WBC 122 H (0-5) /hpf Urine WBC Clumps Occasional H (None) /hpf Urine Bacteria Many H (None) /hpf Urine Mucus Occasional H (None) /hpf 09/18/22 09/18/22 Range/Units 07:40 07:40 WBC 43.49 H (4.50-10.00) X 10*3/uL MCH 25.8 L (27.0-32.0) pg MCHC 29.4 L (32.0-37.0) g/dL RDW 15.9 H (11.5-14.5) % Immature Gran # 1.21 H (0.00-0.04) X 10*3/uL Neutrophils # 37.53 H (1.3-7.7) k/uL Monocytes # 3.18 H (0-1.0) k/uL Eosinophils # 0.03 L (0.04-0.35) X 10*3/uL BUN (9.0-27.0) mg/dL Creatinine (0.6-1.5) mg/dL Est GFR (CKD-EPI)AfAm (60.0-200.0) Est GFR (CKD-EPI)NonAf (60.0-200.0) BUN/Creatinine Ratio (12.00-20.00) Ratio Glucose (70-110) mg/dL Calcium (8.7-10.3) mg/dL C-Reactive Protein (0.00-0.80) mg/dL Total Protein (6.2-8.2) g/dL Albumin (3.8-4.9) g/dL Albumin/Globulin Ratio (1.60-3.17) g/dL Procalcitonin 5.94 H (0.02-0.09) ng/mL Urine Protein (Negative) Urine Blood (Negative) Urine Bilirubin (Negative) Ur Leukocyte Esterase (Negative) Urine WBC (0-5) /hpf Urine WBC Clumps (None) /hpf Urine Bacteria (None) /hpf Urine Mucus (None) /hpf Microbiology - Last 24 Hours (Table) 09/17/22 13:48 Blood Culture Gram Stain - Preliminary Blood Blood Culture - Preliminary Escherichia coli 09/17/22 13:48 Blood Culture - Final Blood 09/17/22 13:58 Blood Culture - Final Blood 09/17/22 18:21 Urine Culture - Preliminary Urine,Clean Catch Assessment and Plan (1) Sepsis secondary to UTI Status: Acute Code(s): A41.9 - SEPSIS, UNSPECIFIED ORGANISM; N39.0 - URINARY TRACT INFECTION, SITE NOT SPECIFIED SNOMED Code(s): 696967791 Plan: 1patient presented to hospital with sepsis patient presented to this patient who did have a fever elevated white count significantly positive UA and now with evidence redness of bacteremia likely secondary to left-sided pyelonephritis in this patient with a recent diagnosis of stage I renal cancer s/p cryoablation. 2patient also have elevated kidney function concerning for possible obstructive uropathy. 3we will obtain a CT of the abdominal pelvis without contrast to better define underlying abdominal source of this bacteremia. 4patient to continue with Rocephin 2 g daily 5discontinue vancomycin 6blood culture will be repeated document clearance of bacteremia We will follow on clinical condition and cultures to further adjust medication if needed Thank you for this consultation we will follow the patient along with you Time with Patient: Greater than 30
--- NOTE | 2022-09-18 17:34 | CT ---
EXAMINATION TYPE: CT abdomen pelvis wo con DATE OF EXAM: 09/18/2022 COMPARISON: None HISTORY: renal abscess / bacteremia CT DLP: 3370.7 mGycm Automated exposure control for dose reduction was used. TECHNIQUE: Helical acquisition of images was performed from the lung bases through the pelvis. Exam is markedly limited secondary to patient's body habitus and involuntary patient motion. FINDINGS: There is a small infiltrate in the left lung base with a small pleural effusion. The right lung bases clear. Evaluation the kidneys is markedly the right kidney appears. There is a mass superior aspect of the left kidney appears small air bubble. There is abnormal densit y in the perinephric fat of the left kidney and are consistent with a left renal abscess. There are m ultiple nonobstructing left renal calcifications the largest of which is 12 mm. Caliber the abdominal aorta is normal. Grossly the bowel loops are normal in caliber and there is no evidence of obstruction. The gallbladder is normal. Grossly the solid visceral organs of the upper abdomen appear normal. There is no free intraperitoneal air or fluid. IMPRESSION: 1. Markedly limited exam secondary to body habitus and involuntary patient motion. 2. Upper pole left renal mass containing gas with perinephric stranding likely indicating a left talib l abscess. 3. Left lower lobe infiltrate consistent with pneumonia and small pleural effusion.
[2022-09-18] MEDS ORDERED: traMADol 50 MG TAB PO PRN (17:44)
[2022-09-18] MEDS: MONTELUKAST 10 MG TAB PO SCH (20:42)
[2022-09-18] MEDS: GABAPENTIN 100 MG CAP PO SCH (20:42)
[2022-09-18] MEDS: FUROSEMIDE 40 MG TAB PO SCH (20:42)
[2022-09-18] MEDS ORDERED: AZITHROMYCIN 500 MG TAB PO SCH (21:00)
[2022-09-18] MEDS: INDOMETHACIN 25 MG CAP PO SCH (23:26)
[2022-09-19] MEDS: LEVOTHYROXINE 100 MCG TAB PO SCH (06:18)
[2022-09-19] MEDS ORDERED: VANCOMYCIN 2,500 MG in SODIUM CHLORIDE 0.9% 500 ML 500 ML IVPB SCH (09:00)
[2022-09-19 09:13] LABS: African American GFR (CKD) 36.5 (60.0-200.0); Albumin 2.6 g/dL (3.8-4.9); Albumin/Globulin Ratio 1.08 (1.60-3.17); Anion Gap 11.3 mmol/L (10.00-18.00); BUN/Creat Ratio 15.18 Ratio (12.00-20.00); Blood Urea Nitrogen 33.7 mg/dL (9.0-27.0); Calcium 8.1 mg/dL (8.7-10.3); Carbon Dioxide 29.1 mmol/L (20.0-27.5); Globulin 2.4 g/dL (1.6-3.3); Non-African American GFR(CKD) 31.5 (60.0-200.0); Potassium 4.1 mmol/L (3.5-5.5); Total Bilirubin 0.5 mg/dL (0.30-1.20); Total Protein 5.1 g/dL (6.2-8.2)
[2022-09-19 09:21] LABS: Basophils # (A) 0.08 X 10*3/uL (0.00-0.10); Basophils % (A) 0.3 %; Eosinophils # (A) 0.14 X 10*3/uL (0.04-0.35); Eosinophils % (A) 0.5 %; HCT 41.8 % (39.6-50.0); Immature Grans, Automated 1.6 %; Lymphocytes # (A) 1.41 X 10*3/uL (0.90-5.00); Lymphocytes % (A) 5.3 %; MCH 25.2 pg (27.0-32.0); MCHC 28.7 g/dL (32.0-37.0); MCV 87.6 fL (80.0-97.0); Mean Platelet Volume 10.9 fL (9.5-12.2); Monocytes # (A) 2.11 X 10*3/uL (0.20-1.00); NRBC Per 100 WBC 0 /100 WBCS (0.0-0.0); Neutrophils # (A) 22.24 X 10*3/uL (1.80-7.70); Neutrophils % (A) 84.3 %; Platelet Count 247 X 10*3/uL (140-440); RBC 4.77 X 10*6/uL (4.40-5.60); RDW 15.9 % (11.5-14.5)
[2022-09-19] MEDS: allopurinoL 300 MG TAB PO SCH (09:27)
[2022-09-19] MEDS: GABAPENTIN 100 MG CAP PO SCH ×2 (09:27→20:21)
[2022-09-19] MEDS: FUROSEMIDE 40 MG TAB PO SCH ×2 (09:27→20:21)
[2022-09-19] MEDS: amLODIPine 10 MG TAB PO SCH (09:27)
[2022-09-19] MEDS: INDOMETHACIN 25 MG CAP PO SCH ×3 (09:28→20:21)
[2022-09-19 09:29] LABS: C Reactive Protein 33.9 mg/dL (0.00-0.80)
[2022-09-19] MEDS: COLCHICINE 0.6 MG EACH PO SCH (09:29)
--- NOTE | 2022-09-19 11:08 | P.PN ---
Subjective Progress Note Date: 09/18/22 57-year-old male presents emergency Department with a past medical history significant for renal cell carcinoma. Patient had a procedure yesterday for embolization of that tumor and he got home and had a fever since. According to the his temperature over 102 since they've been home. Patient denies any chills patient denies any cough or shortness of breath per patient denies any chest pain. Patient's abdominal pain patient denies nausea or vomiting. Patient denies any dysuria hematuria urinary frequency. Patient denies any lesions or areas of redness particularly around the site that the probe yesterday. Patient states he only has been feeling weak and tired. Patient states home his pulse ox was dropping down into the mid 80s low 80s so he increased his oxygen which she is normally on up to 5 L. Patient states normally his pulse ox on a couple liters is at about 91-93% In the ED, he was afebrile. Systolic blood pressures in the 110s to 100s were lower than previous hospital values. He was noted to be 85% on room air and was briefly placed on 5 L nasal cannula. Labs were significant for white blood cell count of 38.3 (ANC 34.5) along with creatinine 1.53 (baseline 0.9-1.1). Chest x-ray noted increased density in the right medial lung base, which may reflect vascular crowding or atelectasis cannot exclude a developing infiltrate. PCR for influenza A/B, RSV, and COVID-19 were negative. Blood cultures, sputum culture, UA with reflex culture, and Legionella urinary antigen were ordered. He was started on ceftriaxone, azithromycin, and vancomycin -- Patient has been evaluated by ID; blood culture came back positive for E. coli; preliminary urine culture reveals gram-negative bacilli - E. coli bacteremia likely related to left-sided pyelonephritis; patient has a recent diagnosis of stage I and renal cancer and is status post cryoablation -- CT of the abdomen and pelvis without contrast is ordered for further evaluation of an abdominal source of bacteremia -- Patient remains on IV Rocephin; vancomycin is discontinued Objective - Vital Signs Vital signs: Vital Signs Temp 98.8 F 09/18/22 08:21 Pulse 85 09/18/22 08:21 Resp 19 09/18/22 08:21 BP 113/70 09/18/22 08:21 Pulse Ox 94 L 09/18/22 09:48 FiO2 Intake & Output 09/17/22 09/18/22 09/18/22 18:59 06:59 18:59 Intake Total 118 Balance 118 Weight 210.92 kg 210.92 kg Intake: Oral 118 Other: # Voids 1 4 - Exam PHYSICAL EXAMINATION: GENERAL: The patient is alert and oriented x3, not in any acute distress. Well d eveloped, well nourished. HEENT: Pupils are round and equally reacting to light. EOMI. No scleral icterus. No conjunctival pallor. Normocephalic, atraumatic. No pharyngeal erythema. No thyromegaly. CARDIOVASCULAR: S1 and S2 present. No murmurs, rubs, or gallops. PULMONARY: Chest is clear to auscultation, no wheezing or crackles. ABDOMEN: Soft, nontender, nondistended, normoactive bowel sounds. No palpable organomegaly. MUSCULOSKELETAL: No joint swelling or deformity. EXTREMITIES: No cyanosis, clubbing, or pedal edema. NEUROLOGICAL: Gross neurological examination did not reveal any focal deficits. SKIN: No rashes. - Labs CBC & Chem 7: 09/19/22 04:41 09/19/22 04:41 Labs: Abnormal Lab Results - Last 24 Hours (Table) 09/17/22 09/18/22 09/18/22 Range/Units 18:21 07:40 07:40 WBC (4.50-10.00) X 10*3/uL MCH (27.0-32.0) pg MCHC (32.0-37.0) g/dL RDW (11.5-14.5) % Immature Gran # (0.00-0.04) X 10*3/uL Neutrophils # (1.80-7.70) X 10*3/uL Monocytes # (0.20-1.00) X 10*3/uL Eosinophils # (0.04-0.35) X 10*3/uL BUN 27.6 H (9.0-27.0) mg/dL Creatinine 2.3 H (0.6-1.5) mg/dL Est GFR (CKD-EPI)AfAm 34.3 L (60.0-200.0) Est GFR (CKD-EPI)NonAf 29.6 L (60.0-200.0) BUN/Creatinine Ratio 11.79 L (12.00-20.00) Ratio Glucose 124 H (70-110) mg/dL Calcium 8.3 L (8.7-10.3) mg/dL C-Reactive Protein 39.70 H (0.00-0.80) mg/dL Total Protein 5.6 L (6.2-8.2) g/dL Albumin 3.0 L (3.8-4.9) g/dL Albumin/Globulin Ratio 1.18 L (1.60-3.17) g/dL Procalcitonin 5.94 H (0.02-0.09) ng/mL Urine Protein 2+ H (Negative) Urine Blood Large H (Negative) Urine Bilirubin 1+ H (Negative) Ur Leukocyte Esterase Large H (Negative) Urine WBC 122 H (0-5) /hpf Urine WBC Clumps Occasional H (None) /hpf Urine Bacteria Many H (None) /hpf Urine Mucus Occasional H (None) /hpf 09/18/22 Range/Units 07:40 WBC 43.49 H (4.50-10.00) X 10*3/uL MCH 25.8 L (27.0-32.0) pg MCHC 29.4 L (32.0-37.0) g/dL RDW 15.9 H (11.5-14.5) % Immature Gran # 1.21 H (0.00-0.04) X 10*3/uL Neutrophils # 37.53 H (1.80-7.70) X 10*3/uL Monocytes # 3.18 H (0.20-1.00) X 10*3/uL Eosinophils # 0.03 L (0.04-0.35) X 10*3/uL BUN (9.0-27.0) mg/dL Creatinine (0.6-1.5) mg/dL Est GFR (CKD-EPI)AfAm (60.0-200.0) Est GFR (CKD-EPI)NonAf (60.0-200.0) BUN/Creatinine Ratio (12.00-20.00) Ratio Glucose (70-110) mg/dL Calcium (8.7-10.3) mg/dL C-Reactive Protein (0.00-0.80) mg/dL Total Protein (6.2-8.2) g/dL Albumin (3.8-4.9) g/dL Albumin/Globulin Ratio (1.60-3.17) g/dL Procalcitonin (0.02-0.09) ng/mL Urine Protein (Negative) Urine Blood (Negative) Urine Bilirubin (Negative) Ur Leukocyte Esterase (Negative) Urine WBC (0-5) /hpf Urine WBC Clumps (None) /hpf Urine Bacteria (None) /hpf Urine Mucus (None) /hpf Microbiology - Last 24 Hours (Table) 09/17/22 13:48 Blood Culture Gram Stain - Preliminary Blood Blood Culture - Preliminary Escherichia coli 09/17/22 13:48 Blood Culture - Final Blood 09/17/22 13:58 Blood Culture - Final Blood 09/17/22 18:21 Urine Culture - Preliminary Urine,Clean Catch Assessment and Plan Assessment: 1. Leukocytosis/fever; possibility of pain related to recent procedure versus pneumonia; white blood count is elevated at 38.70 - Patient had a fever of up to 102 and affect home; underwent cryoablation procedure of renal cell carcinoma - Chest x-ray completed in ED reveals developing infiltrate right lung base - Oncology is on board and recommending to continue with IV antibiotics - We will monitor CBC, CRP and pro-calcitonin 2. Acute renal injury; BUN/creatinine is elevated at 23/1.53 - We will start patient on IV fluid hydration; we will avoid nephrotoxins and hypotension; monitor strict STEPHY's, daily weights, renal function and electrolytes 3. Stage I renal cell carcinoma -He was originally hospitalized in May 2022 with shortness of breath noted incidentally to have liver lesion concerning for malignancy -CT abdomen and pelvis performed and patient noted nondescript liver lesion along with potential lesion near the hanny hepatis along with a left kidney mass concerning for renal cell carcinoma -MRI abdomen and pelvis was not able to be performed inpatient due to body habitus -MRI of the abdomen and pelvis on 07/18/2022 noted liver lesions being consistent with hemangiomas with no concern for malignancy. Left renal mass was measuring 5.1 cm -CT-guided biopsy of the left renal mass on 08/09/2022 was consistent with grade 1 clear-cell renal cell carcinoma -Underwent cryoablation at [facility] in [place] on 09/14/22 and 09/15/22 -He will need surveillance with annual CT chest for 5 years along with abdominal imaging annually for at least 3 years 4. Hypothyroidism; continue with levothyroxine 300 MCG daily 5. Hypertension; Norvasc 10 mg daily 6. Gout; stable on allopurinol 300 mg daily and colchicine 0.6 mg daily DVT prophylaxis; SCDs/subcu Lovenox CODE STATUS; full code
--- NOTE | 2022-09-19 16:56 | P.PN ---
Subjective Progress Note Date: 09/19/22 Principal diagnosis: UTI/pyelonephritis Left lower lobe pneumonia Possible left renal abscess E. coli bacteremia 57-year-old male presents emergency Department with a past medical history significant for renal cell carcinoma. Patient had a procedure yesterday for embolization of that tumor and he got home and had a fever since. According to the his temperature over 102 since they've been home. Patient denies any chills patient denies any cough or shortness of breath per patient denies any chest pain. Patient's abdominal pain patient denies nausea or vomiting. Patient denies any dysuria hematuria urinary frequency. Patient denies any le sions or areas of redness particularly around the site that the probe yesterday. Patient states he only has been feeling weak and tired. Patient states home his pulse ox was dropping down into the mid 80s low 80s so he increased his oxygen which she is normally on up to 5 L. Patient states normally his pulse ox on a couple liters is at about 91-93% In the ED, he was afebrile. Systolic blood pressures in the 110s to 100s were lower than previous hospital values. He was noted to be 85% on room air and was briefly placed on 5 L nasal cannula. Labs were significant for white blood cell count of 38.3 (ANC 34.5) along with creatinine 1.53 (baseline 0.9-1.1). Chest x-ray noted increased density in the right medial lung base, which may reflect vascular crowding or atelectasis cannot exclude a developing infiltrate. PCR for influenza A/B, RSV, and COVID-19 were negative. Blood cultures, sputum culture, UA with reflex culture, and Legionella urinary antigen were ordered. He was started on ceftriaxone, azithromycin, and vancomycin -- Patient has been evaluated by ID; blood culture came back positive for E. coli; preliminary urine culture reveals gram-negative bacilli - E. coli bacteremia likely related to left-sided pyelonephritis; patient has a recent diagnosis of stage I and renal cancer and is status post cryoablation -- CT of the abdomen and pelvis without contrast is ordered for further evaluation of an abdominal source of bacteremia -- Patient remains on IV Rocephin; vancomycin is discontinued 09/19/2022 Patient is seen and evaluated sitting up in bed; denies any specific complaints Vital signs are reviewed and are stable Blood work reveals slight improvement in white blood count down to 26.4 from 43.4 yesterday; urine culture is positive for gram-negative bacilli; blood cultures positive for E. coli - CT of the abdomen and pelvis is completed and reveals left lower lobe pneumonia and possible left renal abscess - Patient remains on IV ceftriaxone; vancomycin has been discontinued - ID is on board Objective - Vital Signs Vital signs: Vital Signs Temp 97.7 F 09/19/22 08:32 Pulse 76 09/19/22 08:32 Resp 17 09/19/22 08:32 BP 120/71 09/19/22 08:32 Pulse Ox 93 L 09/19/22 09:06 FiO2 Intake & Output 09/18/22 09/19/22 09/19/22 18:59 06:59 18:59 Intake Total 418 640 Balance 418 640 Intake: Intake, IV Titration 300 Amount Azithromycin 500 mg In 250 Sodium Chloride 0.9% 250 ml @ 250 mls/hr IVPB ONCE ONE Rx#:[id number] cefTRIAXone 2 gm In 50 Sodium Chloride 0.9% 50 ml @ 100 mls/hr IVPB Q24HR [facility] Rx#:[id number] Oral 118 640 Other: # Voids 2 3 - Exam PHYSICAL EXAMINATION: GENERAL: The patient is alert and oriented x3, not in any acute distress. Well developed, well nourished. HEENT: Pupils are round and equally reacting to light. EOMI. No scleral icterus. No conjunctival pallor. Normocephalic, atraumatic. No pharyngeal erythema. No thyromegaly. CARDIOVASCULAR: S1 and S2 present. No murmurs, rubs, or gallops. PULMONARY: Chest is clear to auscultation, no wheezing or crackles. ABDOMEN: Soft, nontender, nondistended, normoactive bowel sounds. No palpable organomegaly. MUSCULOSKELETAL: No joint swelling or deformity. EXTREMITIES: No cyanosis, clubbing, or pedal edema. NEUROLOGICAL: Gross neurological examination did not reveal any focal deficits. SKIN: No rashes. - Labs CBC & Chem 7: 09/19/22 04:41 09/19/22 04:41 Labs: Abnormal Lab Results - Last 24 Hours (Table) 09/18/22 09/18/22 09/18/22 Range/Units 07:40 07:40 07:40 WBC 43.49 H (4.50-10.00) X 10*3/uL Hgb (13.0-17.0) g/dL MCH 25.8 L (27.0-32.0) pg MCHC 29.4 L (32.0-37.0) g/dL RDW 15.9 H (11.5-14.5) % Immature Gran # 1.21 H (0.00-0.04) X 10*3/uL Neutrophils # 37.53 H (1.80-7.70) X 10*3/uL Monocytes # 3.18 H (0.20-1.00) X 10*3/uL Eosinophils # 0.03 L (0.04-0.35) X 10*3/uL Carbon Dioxide (20.0-27.5) mmol/L BUN 27.6 H (9.0-27.0) mg/dL Creatinine 2.3 H (0.6-1.5) mg/dL Est GFR (CKD-EPI)AfAm 34.3 L (60.0-200.0) Est GFR (CKD-EPI)NonAf 29.6 L (60.0-200.0) BUN/Creatinine Ratio 11.79 L (12.00-20.00) Ratio Glucose 124 H (70-110) mg/dL Calcium 8.3 L (8.7-10.3) mg/dL C-Reactive Protein 39.70 H (0.00-0.80) mg/dL Total Protein 5.6 L (6.2-8.2) g/dL Albumin 3.0 L (3.8-4.9) g/dL Albumin/Globulin Ratio 1.18 L (1.60-3.17) g/dL Procalcitonin 5.94 H (0.02-0.09) ng/mL 09/19/22 09/19/22 Range/Units 04:41 04:41 WBC 26.40 H (4.50-10.00) X 10*3/uL Hgb 12.0 L (13.0-17.0) g/dL MCH 25.2 L (27.0-32.0) pg MCHC 28.7 L (32.0-37.0) g/dL RDW 15.9 H (11.5-14.5) % Immature Gran # 0.42 H (0.00-0.04) X 10*3/uL Neutrophils # 22.24 H (1.80-7.70) X 10*3/uL Monocytes # 2.11 H (0.20-1.00) X 10*3/uL Eosinophils # (0.04-0.35) X 10*3/uL Carbon Dioxide 29.1 H (20.0-27.5) mmol/L BUN 33.7 H (9.0-27.0) mg/dL Creatinine 2.2 H (0.6-1.5) mg/dL Est GFR (CKD-EPI)AfAm 36.5 L (60.0-200.0) Est GFR (CKD-EPI)NonAf 31.5 L (60.0-200.0) BUN/Creatinine Ratio (12.00-20.00) Ratio Glucose (70-110) mg/dL Calcium 8.1 L (8.7-10.3) mg/dL C-Reactive Protein 33.90 H (0.00-0.80) mg/dL Total Protein 5.1 L (6.2-8.2) g/dL Albumin 2.6 L (3.8-4.9) g/dL Albumin/Globulin Ratio 1.08 L (1.60-3.17) g/dL Procalcitonin (0.02-0.09) ng/mL Microbiology - Last 24 Hours (Table) 09/17/22 13:58 Blood Culture Gram Stain - Preliminary Blood Blood Culture - Preliminary Gram Neg Bacilli 09/17/22 18:21 Urine Culture - Preliminary Urine,Clean Catch Gram Neg Bacilli 09/17/22 13:48 Blood Culture Gram Stain - Preliminary Blood Blood Culture - Preliminary Escherichia coli Assessment and Plan Assessment: 1. Leukocytosis/fever; possibility of pain related to recent procedure versus pneumonia; white blood count is elevated at 38.70 - Patient had a fever of up to 102 and affect home; underwent cryoablation procedure of renal cell carcinoma - Chest x-ray completed in ED reveals developing infiltrate right lung base - Oncology is on board and recommending to continue with IV antibiotics - We will monitor CBC, CRP and pro-calcitonin 2. Acute renal injury; BUN/creatinine is elevated at 23/1.53 - We will start patient on IV fluid hydration; we will avoid nephrotoxins and hypotension; monitor strict STEPHY's, daily weights, renal function and electrolytes 3. Stage I renal cell carcinoma -He was originally hospitalized in May 2022 with shortness of breath noted incidentally to have liver lesion concerning for malignancy -CT abdomen and pelvis performed and patient noted nondescript liver lesion along with potential lesion near the hanny hepatis along with a left kidney mass concerning for renal cell carcinoma -MRI abdomen and pelvis was not able to be performed inpatient due to body habitus -MRI of the abdomen and pelvis on 07/18/2022 noted liver lesions being consistent with hemangiomas with no concern for malignancy. Left renal mass was measuring 5.1 cm -CT-guided biopsy of the left renal mass on 08/09/2022 was consistent with grade 1 clear-cell renal cell carcinoma -Underwent cryoablation at [facility] in [place] on 09/14/22 and 09/15/22 -He will need surveillance with annual CT chest for 5 years along with abdominal imaging annually for at least 3 years 4. Hypothyroidism; continue with levothyroxine 300 MCG daily 5. Hypertension; Norvasc 10 mg daily 6. Gout; stable on allopurinol 300 mg daily and colchicine 0.6 mg daily DVT prophylaxis; SCDs/subcu Lovenox CODE STATUS; full code
--- NOTE | 2022-09-19 17:18 | P.PN ---
Subjective Progress Note Date: 09/19/22 Principal diagnosis: E. coli bacteremia Patient is a 57-year male with a past medical history difficult for hypertension hypothyroidism GERD history of thyroid cancer with thyroidectomy with a recent diagnosis of stage I renal cell carcinoma in this patient status post cryoablation performed on 09/14/2022 and 09/15/2022, patient did have a fall at home and subsequently presented to the hospital with increasing shortness of breath hypoxemia patient did have a fever and evidence of E. coli bacteremia On today's evaluation that is 09/20/2019, the patient denies having any fever or chills, the patient is feeling slightly better, currently breathing comfortably on 3 L nasal cannula. Denies having any chest pain occasional cough recommending a pain to the left flank area but no worsening and no diarrhea Objective - Vital Signs Vital signs: Vital Signs Temp 97.3 F L 09/19/22 12:40 Pulse 70 09/19/22 12:40 Resp 18 09/19/22 12:40 BP 134/83 09/19/22 12:40 Pulse Ox 94 L 09/19/22 12:40 FiO2 Intake & Output 09/18/22 09/19/22 09/19/22 18:59 06:59 18:59 Intake Total 418 640 Balance 418 640 Intake: Intake, IV Titration 300 Amount Azithromycin 500 mg In 250 Sodium Chloride 0.9% 250 ml @ 250 mls/hr IVPB ONCE ONE Rx#:[id number] cefTRIAXone 2 gm In 50 Sodium Chloride 0.9% 50 ml @ 100 mls/hr IVPB Q24HR [facility] Rx#:[id number] Oral 118 640 Other: Voiding Method Toilet Urinal # Voids 2 3 - Exam GENERAL DESCRIPTION: Middle-age male up in the chair in no distress RESPIRATORY SYSTEM: Unlabored breathing , decreased breath sounds at bases HEART: S1 S2 regular rate and rhythm , ABDOMEN: Soft , no tenderness EXTREMITIES: Diffuse swelling to bilateral lower extremity - Labs CBC & Chem 7: 09/19/22 04:41 09/19/22 04:41 Labs: Abnormal Lab Results - Last 24 Hours (Table) 09/19/22 09/19/22 Range/Units 04:41 04:41 WBC 26.40 H (4.50-10.00) X 10*3/uL Hgb 12.0 L (13.0-17.0) g/dL MCH 25.2 L (27.0-32.0) pg MCHC 28.7 L (32.0-37.0) g/dL RDW 15.9 H (11.5-14.5) % Immature Gran # 0.42 H (0.00-0.04) X 10*3/uL Neutrophils # 22.24 H (1.80-7.70) X 10*3/uL Monocytes # 2.11 H (0.20-1.00) X 10*3/uL Carbon Dioxide 29.1 H (20.0-27.5) mmol/L BUN 33.7 H (9.0-27.0) mg/dL Creatinine 2.2 H (0.6-1.5) mg/dL Est GFR (CKD-EPI)AfAm 36.5 L (60.0-200.0) Est GFR (CKD-EPI)NonAf 31.5 L (60.0-200.0) Calcium 8.1 L (8.7-10.3) mg/dL C-Reactive Protein 33.90 H (0.00-0.80) mg/dL Total Protein 5.1 L (6.2-8.2) g/dL Albumin 2.6 L (3.8-4.9) g/dL Albumin/Globulin Ratio 1.08 L (1.60-3.17) g/dL Microbiology - Last 24 Hours (Table) 09/19/22 09:10 Sputum Culture - Preliminary Sputum 09/17/22 09:10 Legionella Culture - Preliminary Sputum 09/17/22 13:58 Blood Culture Gram Stain - Preliminary Blood Blood Culture - Preliminary Gram Neg Bacilli 09/17/22 18:21 Urine Culture - Preliminary Urine,Clean Catch Gram Neg Bacilli 09/17/22 13:48 Blood Culture Gram Stain - Preliminary Blood Blood Culture - Preliminary Escherichia coli Assessment and Plan (1) E coli bacteremia Current Visit: Yes Status: Acute Code(s): R78.81 - BACTEREMIA; B96.20 - UNSP ESCHERICHIA COLI THE CAUSE OF DISEASES [facility] SNOMED Code(s): 281252100194 Plan: 1patient presented to hospital with sepsis patient presented to this patient who did have a fever elevated white count significantly positive UA and now with evidence redness of bacteremia likely secondary to left-sided pyelonephritis in this patient with a recent diagnosis of stage I renal cancer s/p cryoablation. 2patient also have elevated kidney function concerning for possible obstructive uropathy. 3patient did have CT of the abdominal pelvis without contrast concern for possible left renal abscess for which urology has been consulted. 4patient to continue with Rocephin 2 g daily His care was discussed in detail with his significant other on the phone Time with Patient: Less than 30
--- NOTE | 2022-09-19 18:07 | P.GSCN ---
History of Present Illness Consult date: 09/19/22 History of present illness: 57 yo male in the hospital after falling at home the patient is morbidly obese at 465lb. He is several days sp cryoablation of a 5 cm left renal tumor at [facility]. He was discharged home . Upon going into the house he fell down and required EMS to get him up. At the recommendation of his doctors in [place] he came to [facility]. He was admitted to the hospital. He was found to have a WBC of 38K It went to 43 K yesterday and is down to 28 K today. His cr jumped to 2.3 yeterday and today was 2.2 He was febrile but is now afebrile His o2 use was 5 l but down to 3 l today. He is comfortable today. His ua on admission looks infected and he is grwoing and gram enriqueta bacillus.. He grew e coli in his blood. A ct scan showed and inflamed possibly abscessed kidney. Review of Systems All systems: negative - Constitutional Denies fever, Denies weight loss - EENT Eyes: denies blurred vision Ears, nose, mouth and throat: Denies dysphagia - Cardiovascular Denies chest pain, Denies shortness of breath - Respiratory Denies cough, Denies 7 - Gastrointestinal Reports as per HPI - Genitourinary Denies dysuria, Denies hematuria - Integumentary Denies rash, Denies unusual bruising - Neurological Denies headaches, Denies syncope - Hematologic/Lymphatic Denies easy bleeding, Denies easy bruising Past Medical History Past Medical History: Cancer, GERD/Reflux, Hypertension, Thyroid Disorder Additional Past Medical History / Comment(s): Pt tested covid + in [facility] ER on 08/07/20. Thyroid cancer with thyroidectomy, sciatica with coexisting acute pyriformis syndrome and lumbar discogenic pain R side L$-L%, lasix for bilateral lower leg/ankle edema, gout bilateral feet, past staph infections/wound base of skull/feet-pt does not recall if MRSA. History of Any Multi-Drug Resistant Organisms: None Reported Past Surgical History: Tonsillectomy Additional Past Surgical History / Comment(s): thyroid ca - thyroidectomy Past Anesthesia/Blood Transfusion Reactions: No Reported Reaction Past Psychological History: No Psychological Hx Reported Additional Psychological History / Comment(s): Pt resides with his girlfriend of 10 years. He works virtually. He is independent. Smoking Status: Never smoker Past Alcohol Use History: Occasional Past Drug Use History: None Reported - Past Family History Father History Unknown: Yes Additional Family Medical History / Comment(s): Father left when pt was 9 yrs old. Mother History Unknown: Yes Additional Family Medical History / Comment(s): Pt does not have much contact with his mother Medications and Allergies Home Medications Medication Instructions Recorded Confirmed Type RX: allopurinoL [Zyloprim] 300 mg PO DAILY 12/17/18 09/17/22 History Acetaminophen Tab [Tylenol Tab] 1,000 mg PO Q8H 09/17/22 09/17/22 History Furosemide [Lasix] 40 mg PO BID 09/17/22 09/17/22 History Gabapentin [Neurontin] 100 mg PO BID 09/17/22 09/17/22 History Indomethacin [Indocin] 50 mg PO TID 09/17/22 09/17/22 History Montelukast Sodium [Singulair] 10 mg PO HS 09/17/22 09/17/22 History RX: Colchicine 0.6 mg PO DAILY 09/17/22 09/17/22 History RX: Levothyroxine Sodium 300 mcg PO DAILY 09/17/22 09/17/22 History RX: traMADol HCL 50 mg PO BID PRN 09/17/22 09/17/22 History amLODIPine [Norvasc] 10 mg PO DAILY 09/17/22 09/17/22 History oxyCODONE HCL [OxyIR] 5 mg PO Q6H PRN 09/17/22 09/17/22 History Allergies Allergy/AdvReac Type Severity Reaction Status Date / Time Penicillins Allergy Rash/Hives Verified 09/17/22 15:05 Surgical - Exam Vital Signs Temp Pulse Resp BP Pulse Ox 99.3 F 99 22 103/71 85 L 09/17/22 11:58 09/17/22 11:58 09/17/22 11:58 09/17/22 11:58 09/17/22 11:58 - General morbidly obese[465lb] well developed, well nourished - Eyes normal ocular movement, no icteric - ENT no hearing loss, no congestion - Neck no masses, trachea midline - Respiratory normal respiratory effort, clear to auscultation - Abdomen Abdomen: soft, non tender, no guarding, no rigid, no rebound - Integumentary no rash, no abnormal pigmentation - Neurologic no disoriented, no combative - Psychiatric oriented to time, oriented to person, oriented to place, speech is normal, memory intact Results - Labs 09/19/22 04:41 09/19/22 04:41 Abnormal Lab Results - Last 24 Hours (Table) 09/19/22 09/19/22 Range/Units 04:41 04:41 WBC 26.40 H (4.50-10.00) X 10*3/uL Hgb 12.0 L (13.0-17.0) g/dL MCH 25.2 L (27.0-32.0) pg MCHC 28.7 L (32.0-37.0) g/dL RDW 15.9 H (11.5-14.5) % Immature Gran # 0.42 H (0.00-0.04) X 10*3/uL Neutrophils # 22.24 H (1.80-7.70) X 10*3/uL Monocytes # 2.11 H (0.20-1.00) X 10*3/uL Carbon Dioxide 29.1 H (20.0-27.5) mmol/L BUN 33.7 H (9.0-27.0) mg/dL Creatinine 2.2 H (0.6-1.5) mg/dL Est GFR (CKD-EPI)AfAm 36.5 L (60.0-200.0) Est GFR (CKD-EPI)NonAf 31.5 L (60.0-200.0) Calcium 8.1 L (8.7-10.3) mg/dL C-Reactive Protein 33.90 H (0.00-0.80) mg/dL Total Protein 5.1 L (6.2-8.2) g/dL Albumin 2.6 L (3.8-4.9) g/dL Albumin/Globulin Ratio 1.08 L (1.60-3.17) g/dL Microbiology - Last 24 Hours (Table) 09/19/22 09:10 Sputum Culture - Preliminary Sputum 09/17/22 09:10 Legionella Culture - Preliminary Sputum 09/17/22 13:58 Blood Culture Gram Stain - Preliminary Blood Blood Culture - Preliminary Gram Neg Bacilli 09/17/22 18:21 Urine Culture - Preliminary Urine,Clean Catch Gram Neg Bacilli Diabetes panel 09/19/22 Range/Units 04:41 Sodium 137 (135-145) mmol/L Potassium 4.1 (3.5-5.5) mmol/L Chloride 97 (96-109) mmol/L Carbon Dioxide 29.1 H (20.0-27.5) mmol/L BUN 33.7 H (9.0-27.0) mg/dL Creatinine 2.2 H (0.6-1.5) mg/dL Glucose 97 (70-110) mg/dL Calcium 8.1 L (8.7-10.3) mg/dL AST 23 (14-35) U/L ALT 14 (10-49) U/L Alkaline Phosphatase 119 (41-126) U/L Total Protein 5.1 L (6.2-8.2) g/dL Albumin 2.6 L (3.8-4.9) g/dL Calcium panel 09/19/22 Range/Units 04:41 Calcium 8.1 L (8.7-10.3) mg/dL Albumin 2.6 L (3.8-4.9) g/dL Pituitary panel 09/19/22 Range/Units 04:41 Sodium 137 (135-145) mmol/L Potassium 4.1 (3.5-5.5) mmol/L Chloride 97 (96-109) mmol/L Carbon Dioxide 29.1 H (20.0-27.5) mmol/L BUN 33.7 H (9.0-27.0) mg/dL Creatinine 2.2 H (0.6-1.5) mg/dL Glucose 97 (70-110) mg/dL Calcium 8.1 L (8.7-10.3) mg/dL Adrenal panel 09/19/22 Range/Units 04:41 Sodium 137 (135-145) mmol/L Potassium 4.1 (3.5-5.5) mmol/L Chloride 97 (96-109) mmol/L Carbon Dioxide 29.1 H (20.0-27.5) mmol/L BUN 33.7 H (9.0-27.0) mg/dL Creatinine 2.2 H (0.6-1.5) mg/dL Glucose 97 (70-110) mg/dL Calcium 8.1 L (8.7-10.3) mg/dL Total Bilirubin 0.50 (0.30-1.20) mg/dL AST 23 (14-35) U/L ALT 14 (10-49) U/L Alkaline Phosphatase 119 (41-126) U/L Total Protein 5.1 L (6.2-8.2) g/dL Albumin 2.6 L (3.8-4.9) g/dL - Imaging CT scan - abdomen: report reviewed, image reviewed CT scan - pelvis: report reviewed, image reviewed Assessment and Plan Assessment: Impression: sp cryo surgery to left renal tumor. Uti with positive urine cutures, abnormal ct scan of the left kidney, morbid obesity. s/p fall Plan: the question is whether the left kidney has an abscess or is just inflammed with necrosis sp cryo surgery to a 5 cm mass. The bladder urine is growing a gm neg monika The blood grew e coli. Unless the urine was infected at the time of the cryo surgery it is unlikely that the kidney was infected with e coli as a result of the percutaneous procedure. Clinically the patient has improved and is clinically stable.. He doesnot look septic after a couple of doses of ab. I suspect that the kidney is not infected. I suspect that the abnormal ct scan is inflammation as result of cryo surgery. The elevated wbc could be due to the necrosis of the tumor aggravated by the uti. However this isnt for certain and has been discussed with the patient and family. We discussed transfer to [facility] but since he is clinically stable and improving I dont think that this is necessary at present nor does he want to go right now.. We will follow. Time with Patient: Greater than 30
[2022-09-19] MEDS: MONTELUKAST 10 MG TAB PO SCH (20:21)
[2022-09-20] MEDS: LEVOTHYROXINE 100 MCG TAB PO SCH (06:13)
[2022-09-20] MEDS: FUROSEMIDE 40 MG TAB PO SCH ×2 (09:20→20:17)
[2022-09-20] MEDS: INDOMETHACIN 25 MG CAP PO SCH ×3 (09:20→22:35)
[2022-09-20] MEDS: amLODIPine 10 MG TAB PO SCH (09:20)
[2022-09-20] MEDS: GABAPENTIN 100 MG CAP PO SCH ×2 (09:20→20:17)
[2022-09-20] MEDS: allopurinoL 300 MG TAB PO SCH (09:20)
[2022-09-20] MEDS: COLCHICINE 0.6 MG EACH PO SCH (09:22)
--- NOTE | 2022-09-20 10:27 | P.PN ---
Subjective Progress Note Date: 09/20/22 The patient is a 78 yo male in the hospital for a couple of days with a cva. We were asked to see the patient for difficult with urination , frequency and incomplete voiding. The patient was interviewed at the bedside with his family present. He has minimal side effects from his cva. He has been having problems urinating for over a year. His stream is slow, he has incomplete voiding He gets up 3-4 x per night. He has not seen a doctor in years. He has never had a psa. There is no family urological history. He denies uti, hematuria or incontinence. 4/2 BPH with obstruction. Incomplete bladder emptying. We will start him on Flomax. We will monitor his PVR. Hopefully we can avoid a catheter. The patient will need to follow up in the office regardless. Objective - Vital Signs Vital signs: Vital Signs Temp 96.3 F L 09/20/22 07:44 Pulse 79 09/20/22 07:44 Resp 18 09/20/22 07:44 BP 154/84 09/20/22 07:44 Pulse Ox 94 L 09/20/22 07:44 FiO2 Intake & Output 09/19/22 09/20/22 09/20/22 18:59 06:59 18:59 Intake Total 800 1000 Balance 800 1000 Intake: Oral 800 1000 Other: Voiding Method Toilet Toilet Urinal Urinal # Voids 3 3 - Exam General: Well developed, well nourished. No acute distress. HEENT: Head is atraumatic, normocephalic. Lungs: Respirations even and nonlabored. Abdomen/GI: Soft, non-distended. No guarding, rigidity, or abdominal tenderness. : No suprapubic tenderness. Skin: Warm and dry Neurologic: Alert and oriented 3, CN II-XII grossly intact. No focal deficits. Psychiatric: Appropriate mood and affect. - Labs CBC & Chem 7: 09/19/22 04:41 09/19/22 04:41 Labs: Microbiology - Last 24 Hours (Table) 09/19/22 04:41 Blood Culture - Preliminary Blood No Growth after 24 hours 09/17/22 18:21 Urine Culture - Final Urine,Clean Catch Escherichia coli 09/19/22 09:10 Sputum Culture - Preliminary Sputum 09/17/22 09:10 Legionella Culture - Preliminary Sputum 09/17/22 13:58 Blood Culture Gram Stain - Preliminary Blood Blood Culture - Preliminary Gram Neg Bacilli Assessment and Plan Assessment: PVR overnight was 550ml and a Castorena catheter was placed. It is currently draining clear yellow with small flakes of blood. Serum creatinine was stable at 1.01 upon admission. Today's labs pending. The Castorena catheter should remain in for 1 week. If the patient is discharged before then, he may be discharged home with the catheter and complete a voiding trial in our office. (1) Urinary retention due to benign prostatic hyperplasia Current Visit: Yes Status: Acute Code(s): N40.1 - BENIGN PROSTATIC HYPERPLASIA WITH LOWER URINARY TRACT SYMP; R33.8 - OTHER RETENTION OF URINE SNOMED Code(s): 964937864 Plan: - Maintain Castorena catheter for 1 week - Continue Flomax, started 09/19/22 - Monitor creatinine - Follow up in the office with Dr. Portillo Thank you for this consultation Impression and plan of care have been directed as dictated by the signing physician. Jamila Sumner nurse practitioner acting as scribe for signing physician. Jamila Sumner [facility] Palliative Care/Urology [facility] [id number] Email: [email or web address]
[2022-09-20 10:49] LABS: Non-African American GFR(CKD) 40.6 (60.0-200.0)
--- NOTE | 2022-09-20 12:54 | P.PN ---
Subjective Progress Note Date: 09/20/22 The patient is a 57 year old male in the hospital after falling at home. He is morbidly obese at 465lb and a BMI of 63.1. He is several days s/p cryoablation of a 5 cm left renal tumor at [facility]. He was discharged home 09/16. Upon going into the house he fell down and required EMS to get him up. At the recommendation of his doctors in [place] he came to [facility]. He was admitted to the hospital. He was found to have a WBC of 38K It went to 43 K yesterday and is down to 28 K today. His creatinine jumped to 2.3 yeterday and today was 2.2 He was febrile but is now afebrile His O2 use was 5 l but down to 3 l today. He is comfortable today. His UA on admission looks infected and he is growingand gram neg bacilli. His blood cultures grew E. coli. A CT scan showed and inflamed possibly abscessed kidney. 09/19 The question is whether the left kidney has an abscess or is just inflammed with necrosis sp cryo surgery to a 5 cm mass. The bladder urine is growing a gramm neg [place]. The blood grew E. coli. Unless the urine was infected at the time of the cryo surgery it is unlikely that the kidney was infected with E. coli as a result of the percutaneous procedure. Clinically the patient has improved and is clinically stable.. He does not look septic after a couple of doses of antibiotics. I suspect that the kidney is not infected. I suspect that the abnormal CT scan is inflammation as result of cryo surgery. The elevated WBC could be due to the necrosis of the tumor aggravated by the UTI. However this is not for certain and has been discussed with the patient and family. We discussed transfer to [facility] but since he is clinically stable and improving I do not think that this is necessary at present nor does he want to go right now. We will follow. Objective - Vital Signs Vital signs: Vital Signs Temp 96.3 F L 09/20/22 07:44 Pulse 79 09/20/22 07:44 Resp 18 09/20/22 07:44 BP 154/84 09/20/22 07:44 Pulse Ox 94 L 09/20/22 07:44 FiO2 Intake & Output 09/19/22 09/20/2209/20/23 18:59 06:59 18:59 Intake Total 800 1000 Balance 800 1000 Intake: Oral 800 1000 Other: Voiding Method Toilet Toilet Urinal Urinal # Voids 3 3 - Exam General: Well developed, well nourished. Morbidly obese. HEENT: Head is atraumatic, normocephalic. Lungs: Respirations even and nonlabored. Abdomen/GI: Soft, non-distended. No guarding, rigidity, or abdominal tenderness. Skin: Warm and dry Neurologic: Alert and oriented 3, CN II-XII grossly intact. No focal deficits. Psychiatric: Appropriate mood and affect. - Labs CBC & Chem 7: 09/19/22 04:41 09/20/22 06:49 Labs: Microbiology - Last 24 Hours (Table) 09/19/22 04:41 Blood Culture - Preliminary Blood No Growth after 24 hours 09/17/22 18:21 Urine Culture - Final Urine,Clean Catch Escherichia coli 09/19/22 09:10 Sputum Culture - Preliminary Sputum 09/17/22 09:10 Legionella Culture - Preliminary Sputum 09/17/22 13:58 Blood Culture Gram Stain - Preliminary Blood Blood Culture - Preliminary Gram Neg Bacilli Assessment and Plan Assessment: The patient is afebrile, slightly hypertensive, and on 3L NC. Blood cultures and urine cultures both growing E. coli. WBC has been trending downward. Serum creatinine 1.8. Dr. Joe reviewed his abdomen/pelvis CT. The abnormal CT scan is inflammation as result of cryo surgery. The elevated WBC could be due to the necrosis of the tumor aggravated by the UTI. The patient continues to improve clinically. No urological intervention warranted at this time. Recommend continue antibiotics, ID following. (1) Urinary retention due to benign prostatic hyperplasia Current Visit: Yes Status: Acute Code(s): N40.1 - BENIGN PROSTATIC HYPERPLASIA WITH LOWER URINARY TRACT SYMP; R33.8 - OTHER RETENTION OF URINE SNOMED Code(s): 572863588 Plan: - Continue antibiotics per ID's recommendations - Monitor WBC - Monitor creatinine Thank you for this consultation Impression and plan of care have been directed as dictated by the signing physician. Jamila Sumner nurse practitioner acting as scribe for signing physician. Jamila Sumner [facility] Palliative Care/Urology [facility] [id number] Email: [email or web address] I personally performed and participated in the history, physical, the decision making, I agree with the assessment and plan of PROGRAM DIRECTOR SUBSTANCE ABUSE Reviewed his CT scan, more likely to be postprocedural changes from his recent cryoablation Rather leonel renal abscess.. Patient is afebrile minimal flank pain, he is clinically not consistent with renal abscess.
--- NOTE | 2022-09-20 14:58 | P.PN ---
Subjective Progress Note Date: 09/20/22 Principal diagnosis: Renal cell carcinoma In follow-up, patient sleeping very heavily, he was difficult to arouse, denied any pain. Objective - Vital Signs Vital signs: Vital Signs Temp 96.3 F L 09/20/22 07:44 Pulse 79 09/20/22 07:44 Resp 18 09/20/22 07:44 BP 154/84 09/20/22 07:44 Pulse Ox 94 L 09/20/22 07:44 FiO2 Intake & Output 09/19/22 09/20/22 09/20/22 18:59 06:59 18:59 Intake Total 800 1000 Balance 800 1000 Intake: Oral 800 1000 Other: Voiding Method Toilet Toilet Urinal Urinal # Voids 3 3 - Constitutional General appearance: Present: morbidly obese, no acute distress - EENT Eyes: Present: anicteric sclerae ENT: Present: hearing grossly normal - Respiratory Details: Respirations even and unlabored at rest, patient's sleeping in the chair - Peripheral edema leg Peripheral Edema: bilateral: Trace - Integumentary Integumentary: Present: normal - Neurologic Neurologic: Present: CNII-XII intact (Grossly) - Labs CBC & Chem 7: 09/19/22 04:41 09/20/22 06:49 Labs: Abnormal Lab Results - Last 24 Hours (Table) 09/20/22 Range/Units 06:49 Creatinine 1.8 H (0.6-1.5) mg/dL Est GFR (CKD-EPI)AfAm 47.0 L (60.0-200.0) Est GFR (CKD-EPI)NonAf 40.6 L (60.0-200.0) Microbiology - Last 24 Hours (Table) 09/17/22 13:58 Blood Culture Gram Stain - Final Blood Blood Culture - Final Escherichia coli 09/17/22 13:48 Blood Culture Gram Stain - Final Blood Blood Culture - Final Escherichia coli 09/19/22 09:10 Gram Stain - Preliminary Sputum Sputum Culture - Preliminary 09/19/22 04:41 Blood Culture - Preliminary Blood No Growth after 24 hours 09/17/22 18:21 Urine Culture - Final Urine,Clean Catch Escherichia coli 09/17/22 09:10 Legionella Culture - Preliminary Sputum - Imaging and Cardiology CT scan - abdomen: report reviewed CT scan - pelvis: report reviewed Assessment and Plan (1) E coli bacteremia Current Visit: Yes Status: Acute Priority: High Code(s): R78.81 - BACTEREMIA; B96.20 - UNSP ESCHERICHIA COLI [facility] Code(s): 865028516516 (2) History of renal cell carcinoma Current Visit: Yes Status: Acute Priority: High Code(s): Z85.528 - PERSONAL HISTORY OF OTHER MALIGNANT NEOPLASM OF KIDNEY SNOMED Code(s): 444663622 Plan: Admitted with shortness of breath and fever -UA positive for Escherichia coli, blood cultures positive for Escherichia coli. -Patient is on antibiotics and being treated for the same. -ID following the patient. Renal cell carcinoma -New diagnosis -Patient had definitive treatment with renal ablation within the last week. -Following up at [facility] in [place] as directed. -CT AP limited due to patient's body habitus. Left renal mass containing gas, perinephric stranding, likely indicating a left renal abscess-likely most consistent with patient's recent cryoablation of the same. Left lower lobe i nfiltrate consistent with a pneumonia and a small pleural effusion. Likely reason for patient's presenting symptoms. Respiratory status is improving.
[2022-09-20] MEDS: HEPARIN SODIUM,PORCINE/PF 5,000 UNIT/0.5 ML SYRINGE SQ SCH (20:17)
[2022-09-20] MEDS: MONTELUKAST 10 MG TAB PO SCH (20:17)
--- NOTE | 2022-09-20 21:38 | P.PN ---
Subjective Progress Note Date: 09/20/22 Principal diagnosis: E. coli bacteremia Patient is a 57-year male with a past medical history difficult for hypertension hypothyroidism GERD history of thyroid cancer with thyroidectomy with a recent diagnosis of stage I renal cell carcinoma in this patient status post cryoablation performed on 09/14/2022 and 09/15/2022, patient did have a fall at home and subsequently presented to the hospital with increasing shortness of breath hypoxemia patient did have a fever and evidence of E. coli bacteremia On today's evaluation that is 09/20/2022, the patient is afebrile, the patient is breathing comfortably on 3 L nasal cannula. Denies having any chest pain occasional cough recommending a pain to the left flank area but no worsening and no diarrhea Objective - Vital Signs Vital signs: Vital Signs Temp 96.3 F L 09/20/22 07:44 Pulse 79 09/20/22 07:44 Resp 18 09/20/22 07:44 BP 154/84 09/20/22 07:44 Pulse Ox 94 L 09/20/22 07:44 FiO2 Intake & Output 09/19/22 09/20/22 09/20/22 18:59 06:59 18:59 Intake Total 800 1000 Balance 800 1000 Intake: Oral 800 1000 Other: Voiding Method Toilet Toilet Urinal Urinal # Voids 3 3 - Exam GENERAL DESCRIPTION: Middle-age male up in the chair in no distress RESPIRATORY SYSTEM: Unlabored breathing , decreased breath sounds at bases HEART: S1 S2 regular rate and rhythm , ABDOMEN: Soft , no tenderness EXTREMITIES: Diffuse swelling to bilateral lower extremity - Labs CBC & Chem 7: 09/19/22 04:41 09/20/22 06:49 Labs: Abnormal Lab Results - Last 24 Hours (Table) 09/20/22 Range/Units 06:49 Creatinine 1.8 H (0.6-1.5) mg/dL Est GFR (CKD-EPI)AfAm 47.0 L (60.0-200.0) Est GFR (CKD-EPI)NonAf 40.6 L (60.0-200.0) Microbiology - Last 24 Hours (Table) 09/19/22 04:41 Blood Culture - Preliminary Blood No Growth after 24 hours 09/17/22 18:21 Urine Culture - Final Urine,Clean Catch Escherichia coli 09/19/22 09:10 Sputum Culture - Preliminary Sputum 09/17/22 09:10 Legionella Culture - Preliminary Sputum 09/17/22 13:58 Blood Culture Gram Stain - Preliminary Blood Blood Culture - Preliminary Gram Neg Bacilli Assessment and Plan (1) E coli bacteremia Current Visit: Yes Status: Acute Priority: High Code(s): R78.81 - BACTEREMIA; B96.20 - UNSP ESCHERICHIA COLI THE CAUSE OF DISEASES [facility] SNOMED Code(s): 902681036634 Plan: 1patient presented to hospital with sepsis patient presented to this patient who did have a fever elevated white count significantly positive UA and now with evidence redness of bacteremia likely secondary to left-sided pyelonephritis in this patient with a recent diagnosis of stage I renal cancer s/p cryoablation. 2patient also have elevated kidney function concerning for possible obstructive uropathy. 3patient did have CT of the abdominal pelvis without contrast concern for possible left renal abscess for which urology has evaluated the pt 4patient to continue with Rocephin 2 g daily will need PICC for outpatient IV antibiotics Time with Patient: Less than 30
--- NOTE | 2022-09-21 02:35 | PN ---
PROGRESS NOTE DATE OF SERVICE: 09/20/2022 SUBJECTIVE: This is a 57-year-old gentleman admitted with left lower lobe pneumonia and UTI, had difficulty in getting IV access. A PICC line has been planned today. No chest pain. No palpitation. Left renal abscess also considered. The urine culture showed E. coli. PAST MEDICAL HISTORY: Reviewed. REVIEW OF SYSTEMS: A 14-point review is negative as mentioned earlier. HOME MEDICATIONS: Reviewed. PHYSICAL EXAMINATION: VITAL SIGNS: Pulse 79, blood pressure 150/84, respirations 18. CHEST: Clear to auscultation. CARDIOVASCULAR: S1 and S2. ABDOMEN: Soft, obese. LEGS: No edema. NERVOUS SYSTEM: No focal deficits. LABORATORY DATA: Reviewed. ASSESSMENT: 1. Escherichia coli sepsis possibly secondary from renal abscess. 2. Acute left lower lobe pneumonia. 3. Severe morbid obesity. 4. Elevated WBC. 5. Acute kidney injury. 6. Multiple medical issues. 7. Stage I renal cell carcinoma. RECOMMENDATIONS: Recommend to continue current medications. Continue symptomatic treatment. Continue with IV Rocephin. Repeat cultures have been ordered. Prognosis guarded. Because of multiple complex medical issues, we will follow the patient closely with Infectious Disease and further recommendations to follow. The abdomen, pelvis CAT scan reviewed. MMODL / IJN: [id number] /
[2022-09-21] MEDS: LEVOTHYROXINE 100 MCG TAB PO SCH (06:38)
[2022-09-21 07:49] VITALS: BP 136/84; PULSE 74; RESP 18; TEMP 96.9
--- NOTE | 2022-09-21 09:24 | P.PN ---
Subjective No acute overnight event, he remain afebrile, denies any flank pain Objective - Vital Signs Vital signs: Vital Signs Temp 96.9 F L 09/21/22 07:00 Pulse 74 09/21/22 07:00 Resp 18 09/21/22 07:00 BP 136/84 09/21/22 07:00 Pulse Ox 91 L 09/21/22 07:00 FiO2 Intake & Output 09/20/22 09/21/22 09/21/22 18:59 06:59 18:59 Other: Voiding Method Toilet Toilet Urinal Urinal # Voids 3 6 # Bowel Movements 1 - Constitutional General appearance: Present: no acute distress - Gastrointestinal General gastrointestinal: Present: soft. Absent: distended, tenderness - Psychiatric Psychiatric: Present: A&O x's 3 - Labs CBC & Chem 7: 09/19/22 04:41 09/20/22 06:49 Labs: Abnormal Lab Results - Last 24 Hours (Table) 09/20/22 Range/Units 06:49 Creatinine 1.8 H (0.6-1.5) mg/dL Est GFR (CKD-EPI)AfAm 47.0 L (60.0-200.0) Est GFR (CKD-EPI)NonAf 40.6 L (60.0-200.0) Microbiology - Last 24 Hours (Table) 09/19/22 04:41 Blood Culture - Preliminary Blood No Growth after 48 hours 09/17/22 13:58 Blood Culture Gram Stain - Final Blood Blood Culture - Final Escherichia coli 09/17/22 13:48 Blood Culture Gram Stain - Final Blood Blood Culture - Final Escherichia coli 09/19/22 09:10 Gram Stain - Preliminary Sputum Sputum Culture - Preliminary Assessment and Plan Assessment: The patient is afebrile, slightly hypertensive, and on 3L NC. Blood cultures and urine cultures both growing E. coli. WBC has been trending downward. Serum creatinine 1.8. I reviewed his abdomen/pelvis CT. The abnormal CT scan is inflammation as result of cryo surgery. The elevated WBC could be due to the necrosis of the tumor aggravated by the UTI. The patient continues to improve clinically. No urological intervention warranted at this time. Recommend continue antibiotics, ID following. (1) Urinary retention due to benign prostatic hyperplasia Current Visit: Yes Status: Acute Code(s): N40.1 - BENIGN PROSTATIC HYPERPLASIA WITH LOWER URINARY TRACT SYMP; R33.8 - OTHER RETENTION OF URINE SNOMED Code(s): 225977555
[2022-09-21] MEDS: HEPARIN SODIUM,PORCINE/PF 5,000 UNIT/0.5 ML SYRINGE SQ SCH (10:22)
[2022-09-21] MEDS: amLODIPine 10 MG TAB PO SCH (10:23)
[2022-09-21] MEDS: GABAPENTIN 100 MG CAP PO SCH (10:23)
[2022-09-21] MEDS: allopurinoL 300 MG TAB PO SCH (10:23)
[2022-09-21] MEDS: INDOMETHACIN 25 MG CAP PO SCH (10:23)
[2022-09-21] MEDS: COLCHICINE 0.6 MG EACH PO SCH (10:23)
[2022-09-21] MEDS: FUROSEMIDE 40 MG TAB PO SCH (10:24)
[2022-09-21 11:05] LABS: Basophils # (A) 0.13 X 10*3/uL (0.00-0.10); Basophils % (A) 0.7 %; Eosinophils # (A) 0.38 X 10*3/uL (0.04-0.35); HCT 48.8 % (39.6-50.0); HGB 14.3 g/dL (13.0-17.0); Immature Grans, Automated 2.7 %; Lymphocytes # (A) 1.14 X 10*3/uL (0.90-5.00); MCH 25.3 pg (27.0-32.0); MCHC 29.3 g/dL (32.0-37.0); MCV 86.4 fL (80.0-97.0); Mean Platelet Volume 11.2 fL (9.5-12.2); Monocytes # (A) 1.66 X 10*3/uL (0.20-1.00); Monocytes % (A) 8.7 %; NRBC Per 100 WBC 0 /100 WBCS (0.0-0.0); Neutrophils # (A) 15.26 X 10*3/uL (1.80-7.70); Neutrophils % (A) 79.9 %; Platelet Count 267 X 10*3/uL (140-440); RBC 5.65 X 10*6/uL (4.40-5.60); RDW 16.2 % (11.5-14.5); WBC 19.09 X 10*3/uL (4.50-10.00)
[2022-09-21 12:51] LABS: African American GFR (CKD) 54.2 (60.0-200.0); Anion Gap 16.7 mmol/L (10.00-18.00); BUN/Creat Ratio 22.81 Ratio (12.00-20.00); Blood Urea Nitrogen 36.5 mg/dL (9.0-27.0); Calcium 8.8 mg/dL (8.7-10.3); Carbon Dioxide 26.3 mmol/L (20.0-27.5); Non-African American GFR(CKD) 46.8 (60.0-200.0); Potassium 4.8 mmol/L (3.5-5.5); Total Bilirubin 0.4 mg/dL (0.30-1.20)
--- NOTE | 2022-09-21 14:59 | IR ---
PICC LINE PLACEMENT: HISTORY: Infection requiring long-term antibiotic therapy PROCEDURE: Ultrasound and fluoroscopic guidance of PICC line placement. COMPLICATIONS: None ANESTHESIA: 1. 1% Lidocaine locally. FINDINGS/TECHNIQUE: The procedure was explained to the patient. The risks, complications, benefits and alternatives were discussed and any questions were answered. Informed consent was obtained. The patient was placed supine on the fluoroscopic table and prepped and draped in the usual sterile fash ion. Utilizing a 21 gauge needle and sonographic and fluoroscopic guidance, access in the left basi lic vein was achieved and there is placement of a 0.018 guidewire. The vein is patent. A 4-F sheath was placed over the guidewire. The guidewire and dilator were removed and a 4-F. PICC line was plac ed through the sheath with the tip at the level of the SVC. The sheath was removed, the catheter was flushed and sutured into position. The patient was stable throughout the procedure and remained sta ble upon discharge from the Department of Radiology. The vein puncture was patent under ultrasound. A hodge scale image was obtained to document patency of the vein punctured. All elements of the maximal barrier technique were utilized. FLUOROSCOPY TIME: DAP 0.438dap Gy cm2 IMPRESSION: Successful PICC line placement under ultrasound and fluoroscopic guidance.
--- NOTE | 2022-09-21 16:13 | P.PN ---
Subjective Progress Note Date: 09/21/22 Principal diagnosis: Renal cell carcinoma In follow-up, Patient reports feeling very well, no fevers, nausea or pain. Objective - Vital Signs Vital signs: Vital Signs Temp 96.9 F L 09/21/22 07:00 Pulse 74 09/21/22 08:00 Resp 18 09/21/22 08:00 BP 136/84 09/21/22 07:00 Pulse Ox 91 L 09/21/22 07:00 FiO2 Intake & Output 09/20/22 09/21/22 09/21/22 18:59 06:59 18:59 Other: Voiding Method Toilet Toilet Toilet Urinal Urinal Urinal # Voids 3 6 # Bowel Movements 1 - Constitutional General appearance: Present: cooperative, morbidly obese, no acute distress - EENT Eyes: Present: anicteric sclerae, EOMI ENT: Present: hearing grossly normal - Respiratory Details: resp even and unlabored at rest - Peripheral edema leg Peripheral Edema: bilateral: None - Integumentary Integumentary: Present: normal - Neurologic Neurologic: Present: CNII-XII intact - Musculoskeletal Musculoskeletal: Present: generalized weakness, strength equal bilaterally - Psychiatric Psychiatric: Present: A&O x's 3, appropriate affect, intact judgment & insight - Labs CBC & Chem 7: 09/21/22 06:19 09/21/22 06:19 Labs: Abnormal Lab Results - Last 24 Hours (Table) 09/21/22 09/21/22 Range/Units 06:19 06:19 WBC 19.09 H (4.50-10.00) X 10*3/uL RBC 5.65 H (4.40-5.60) X 10*6/uL MCH 25.3 L (27.0-32.0) pg MCHC 29.3 L (32.0-37.0) g/dL RDW 16.2 H (11.5-14.5) % Immature Gran # 0.52 H (0.00-0.04) X 10*3/uL Neutrophils # 15.26 H (1.80-7.70) X 10*3/uL Monocytes # 1.66 H (0.20-1.00) X 10*3/uL Eosinophils # 0.38 H (0.04-0.35) X 10*3/uL Basophils # 0.13 H (0.00-0.10) X 10*3/uL BUN 36.5 H (9.0-27.0) mg/dL Creatinine 1.6 H (0.6-1.5) mg/dL Est GFR (CKD-EPI)AfAm 54.2 L (60.0-200.0) Est GFR (CKD-EPI)NonAf 46.8 L (60.0-200.0) BUN/Creatinine Ratio 22.81 H (12.00-20.00) Ratio AST 41 H (14-35) U/L Alkaline Phosphatase 185 H (41-126) U/L Total Protein 6.0 L (6.2-8.2) g/dL Albumin 3.0 L (3.8-4.9) g/dL Albumin/Globulin Ratio 1.00 L (1.60-3.17) g/dL Microbiology - Last 24 Hours (Table) 09/19/22 09:10 Gram Stain - Final Sputum Sputum Culture - Final 09/19/22 04:41 Blood Culture - Preliminary Blood No Growth after 48 hours 09/17/22 13:58 Blood Culture Gram Stain - Final Blood Blood Culture - Final Escherichia coli 09/17/22 13:48 Blood Culture Gram Stain - Final Blood Blood Culture - Final Escherichia coli Assessment and Plan (1) E coli bacteremia Current Visit: Yes Status: Acute Priority: High Code(s): R78.81 - BACTEREMIA; B96.20 - UNSP ESCHERICHIA COLI THE CAUSE OF DISEASES [facility] SNOMED Code(s): 369737038376 (2) History of renal cell carcinoma Current Visit: Yes Status: Acute Priority: High Code(s): Z85.528 - PERSONAL HISTORY OF OTHER MALIGNANT NEOPLASM OF KIDNEY SNOMED Code(s): 958069452 Plan: Admitted with shortness of breath and fever -UA positive for Escherichia coli, blood cultures positive for Escherichia coli. -Patient is on antibiotics and being treated for the same. -ID following the patient. Renal cell carcinoma -New diagnosis, Early stage -Patient had definitive treatment with renal ablation within the last week. -Following up at [facility] in [place] from here forward. -We remain available if needed.
--- NOTE | 2022-09-23 06:34 | P.DS ---
Providers Date of admission: 09/17/22 16:05 Expected date of discharge: 09/21/22 Attending physician: Cehryl Barros Consults: 09/17/22 14:54 Consult Physician Urgent Consulting Provider: Brianna Alfred Consult Reason/Comments: Renal carcinoma Do you want consulting provider notified?: Yes Consult Physician Urgent Consulting Provider: John Melgoza Consult Reason/Comments: Fever, pneumonia Do you want consulting provider notified?: Yes 09/19/22 15:37 Consult Physician Routine Consulting Provider: Cody Portillo Consult Reason/Comments: abnormal CT ?renal abscess Do you want consulting provider notified?: Yes Primary care physician: Jeri Tena Hospital Course: Final diagnosis E. coli sepsis, from UTI, present on admission Acute left lower lobe pneumonia Severe morbid obesity with a BMI of 63.1 Elevated WBC Acute kidney injury Stage I renal cell carcinoma follows with [facility] outpatient Discharge disposition Patient is being discharged in a stable condition with guarded prognosis to home. Patient will follow-up with Dr. Tena in the outpatient setting upon discharge. Patient is to continue with IV antibiotics in the form of ceftriaxone with close outpatient follow-up with infectious disease Dr. Melgoza as scheduled. Total time taken is greater than 35 minutes. Hospital course This is a 57-year-old male who was recently admitted with features of sepsis from UTI pneumonia and being closely monitored. Patient was continued on antibiotics and urine cultures finalized showing E. coli that is to receive a PICC line and will continue on ceftriaxone for 2 weeks with close outpatient follow-up with infectious disease. Patient is following [facility] for renal cell carcinoma. Patient was feeling by oncology care while hospitalized. Patient reports to feeling well and has received his PICC line and has been cleared by consultations. Please refer to other consultation notes for further HPI. Currently no reports of chest pain, shortness of breath, or palpitations. Patient is afebrile. No reports of nausea or vomiting and patient is tolerating diet. Patient will be discharged home today. Guarded prognosis. Physical exam: Gen: This is a 57-year-old male who is awake, alert and oriented 3, well- developed, well-nourished morbidly obese HEENT: Head is atraumatic, normocephalic. Pupils equal, round. Sclerae is anicteric. NECK: Supple. No JVD. No lymphadenopathy. No thyromegaly. LUNGS: Diminished breath sounds bilaterally with some scattered rhonchi. No intercostal retractions. HEART: S1, S2 are muffled ABDOMEN: Soft. Obese. Bowel sounds are present. No masses. No tenderness. EXTREMITIES: No pedal edema. No calf tenderness. Generalized edema noted throughout NEUROLOGICAL: Patient is awake, alert and oriented x3. Cranial nerves 2 through 12 are grossly intact. Please refer to medication reconciliation sheet for a list of medications. The impression and plan of care has been dictated by Susana Mcgill, Nurse Practitioner as directed. Dr. Papo MD I have performed a history and examination and MDM of this patient, discussed the same with the dictator, and agree with the dictator's assessment and plan as written ,documented as a scribe. Based on total visit time, I have performed more than 50% of the visit. Patient Condition at Discharge: Fair Plan - Discharge Summary New Discharge Prescriptions: Continue allopurinoL [Zyloprim] 300 mg PO DAILY traMADol HCL 50 mg PO BID PRN PRN Reason: Pain amLODIPine [Norvasc] 10 mg PO DAILY Montelukast Sodium [Singulair] 10 mg PO HS Indomethacin [Indocin] 50 mg PO TID Gabapentin [Neurontin] 100 mg PO BID oxyCODONE HCL [OxyIR] 5 mg PO Q6H PRN PRN Reason: Pain Furosemide [Lasix] 40 mg PO BID Levothyroxine Sodium 300 mcg PO DAILY Colchicine 0.6 mg PO DAILY Acetaminophen Tab [Tylenol] 1,000 mg PO Q8H Discharge Medication List allopurinoL [Zyloprim] 300 mg PO DAILY 12/17/18 [History] Acetaminophen Tab [Tylenol] 1,000 mg PO Q8H 09/17/22 [History] Colchicine 0.6 mg PO DAILY 09/17/22 [History] Furosemide [Lasix] 40 mg PO BID 09/17/22 [History] Gabapentin [Neurontin] 100 mg PO BID 09/17/22 [History] Indomethacin [Indocin] 50 mg PO TID 09/17/22 [History] Levothyroxine Sodium 300 mcg PO DAILY 09/17/22 [History] Montelukast Sodium [Singulair] 10 mg PO HS 09/17/22 [History] amLODIPine [Norvasc] 10 mg PO DAILY 09/17/22 [History] oxyCODONE HCL [OxyIR] 5 mg PO Q6H PRN 09/17/22 [History] traMADol HCL 50 mg PO BID PRN 09/17/22 [History] Follow up Appointment(s)/Referral(s): Jeri Tena MD [Primary Care Provider] - 09/23/22 1:15 pm [facility], [NON-STAFF] - As Needed ([facility] will call you to schedule your in home nursing, physical therapy, occupational therapy, and aide visits. Your first visit will be on 09/22/22 to begin outpatient IV antibiotic teaching. ) [facility], [REFERRING] - As Needed ([facility] and supplies [facility] your [facility] ) John Melgoza MD [STAFF PHYSICIAN] - 1 Week Patient Instructions/Handouts: Viral Pneumonia (DC) Activity/Diet/Wound Care/Special Instructions: Per Dr. Melgoza: Rocephin IV 2gm daily for 2 weeks. Discharge/Stand Alone Forms: Help In The Home Discharge Disposition: HOME WITH HOME HEALTH SERVICES
--- NOTE | 2022-09-26 17:05 | P.PN ---
Subjective Progress Note Date: 09/21/22 Principal diagnosis: E. coli bacteremia Patient is a 57-year male with a past medical history difficult for hypertension hypothyroidism GERD history of thyroid cancer with thyroidectomy with a recent diagnosis of stage I renal cell carcinoma in this patient status post cryoablation performed on 09/14/2022 and 09/15/2022, patient did have a fall at home and subsequently presented to the hospital with increasing shortness of breath hypoxemia patient did have a fever and evidence of E. coli bacteremia On today's evaluation that is 09/21/2022, the patient remains to be afebrile, the patient is breathing comfortably on 3 L nasal cannula. The patient having any chest pain occasional cough which is dry in nature, the patient left flank pain has decreased in intensity no nausea no vomiting no diarrhea feeling better wants to go home Objective - Vital Signs Vital signs: Vital Signs Temp 96.9 F L 09/21/22 07:00 Pulse 74 09/21/22 08:00 Resp 18 09/21/22 08:00 BP 136/84 09/21/22 07:00 Pulse Ox 91 L 09/21/22 07:00 FiO2 Intake & Output 09/20/22 09/21/22 09/21/22 18:59 06:59 18:59 Other: Voiding Method Toilet Toilet Toilet Urinal Urinal Urinal # Voids 3 6 # Bowel Movements 1 - Exam GENERAL DESCRIPTION: Middle-age male up in the chair in no distress RESPIRATORY SYSTEM: Unlabored breathing , decreased breath sounds at bases HEART: S1 S2 regular rate and rhythm , ABDOMEN: Soft , no tenderness EXTREMITIES: Diffuse swelling to bilateral lower extremity - Labs CBC & Chem 7: 09/21/22 06:19 09/21/22 06:19 Labs: Abnormal Lab Results - Last 24 Hours (Table) 09/21/22 09/21/22 Range/Units 06:19 06:19 WBC 19.09 H (4.50-10.00) X 10*3/uL RBC 5.65 H (4.40-5.60) X 10*6/uL MCH 25.3 L (27.0-32.0) pg MCHC 29.3 L (32.0-37.0) g/dL RDW 16.2 H (11.5-14.5) % Immature Gran # 0.52 H (0.00-0.04) X 10*3/uL Neutrophils # 15.26 H (1.80-7.70) X 10*3/uL Monocytes # 1.66 H (0.20-1.00) X 10*3/uL Eosinophils # 0.38 H (0.04-0.35) X 10*3/uL Basophils # 0.13 H (0.00-0.10) X 10*3/uL BUN 36.5 H (9.0-27.0) mg/dL Creatinine 1.6 H (0.6-1.5) mg/dL Est GFR (CKD-EPI)AfAm 54.2 L (60.0-200.0) Est GFR (CKD-EPI)NonAf 46.8 L (60.0-200.0) BUN/Creatinine Ratio 22.81 H (12.00-20.00) Ratio AST 41 H (14-35) U/L Alkaline Phosphatase 185 H (41-126) U/L Total Protein 6.0 L (6.2-8.2) g/dL Albumin 3.0 L (3.8-4.9) g/dL Albumin/Globulin Ratio 1.00 L (1.60-3.17) g/dL Microbiology - Last 24 Hours (Table) 09/19/22 09:10 Gram Stain - Final Sputum Sputum Culture - Final 09/19/22 04:41 Blood Culture - Preliminary Blood No Growth after 48 hours 09/17/22 13:58 Blood Culture Gram Stain - Final Blood Blood Culture - Final Escherichia coli 09/17/22 13:48 Blood Culture Gram Stain - Final Blood Blood Culture - Final Escherichia coli Assessment and Plan (1) E coli bacteremia Status: Acute Priority: High Code(s): R78.81 - BACTEREMIA; B96.20 - UNSP ESCHERICHIA COLI THE CAUSE OF DISEASES [facility]SD [facility] SNOMED Code(s): 632289090402 Plan: 1patient presented to hospital with sepsis patient presented to this patient who did have a fever elevated white count significantly positive UA and now with evidence redness of bacteremia likely secondary to left-sided pyelonephritis in this patient with a recent diagnosis of stage I renal cancer s/p cryoablation. 2patient also have elevated kidney function concerning for possible obstructive uropathy. 3patient did have CT of the abdominal pelvis without contrast concern for possible left renal abscess for which urology has evaluated the pt 4patient seemed to have shown clinical improvement he will continue with the Rocephin 2 g daily for 2 weeks and close outpatient follow-up, discuss with PERFORMANCE ANALYST for admitting team working on discharge Time with Patient: Less than 30
== END 2022-09-21 16:19 | disposition home health service (06) | DRG 720 ==
LOC: EC 11:47 → 4SSUR 16:05
PROVIDERS: ADMIT Hospitalist; ATTEND Hospitalist
PROC: 05HY33Z Insertion of Infusion Device into Upper Vein, Percutaneous Approach (ICD-10-PCS; 2022-09-20 17:10)
PROC: 02HV33Z Insertion of Infusion Device into Superior Vena Cava, Percutaneous Approach (ICD-10-PCS; principal; 2022-09-21 14:15)
DX: A41.51 Sepsis due to Escherichia coli [E. coli] (principal); N15.1 Renal and perinephric abscess; N17.9 Acute kidney failure, unspecified; J18.9 Pneumonia, unspecified organism; C64.2 Malignant neoplasm of left kidney, except renal pelvis; Z68.44 Body mass index [BMI] 60.0-69.9, adult; E66.01 Morbid (severe) obesity due to excess calories; Z20.822 Contact with and (suspected) exposure to COVID-19; N12 Tubulo-interstitial nephritis, not specified as acute or chronic; I10 Essential (primary) hypertension; N40.1 Benign prostatic hyperplasia with lower urinary tract symptoms; R33.8 Other retention of urine; K21.9 Gastro-esophageal reflux disease without esophagitis; E89.0 Postprocedural hypothyroidism; M54.41 Lumbago with sciatica, right side; M10.9 Gout, unspecified; R09.02 Hypoxemia; Z79.890 Hormone replacement therapy; Z79.899 Other long term (current) drug therapy; Z91.81 History of falling; Z85.850 Personal history of malignant neoplasm of thyroid; Z86.16 Personal history of COVID-19; Z88.0 Allergy status to penicillin; W01.0XXA Fall on same level from slipping, tripping and stumbling without subsequent striking against object, initial encounter
CPT/HCPCS: 36410; 36415; 36573; 71046; 74176; 76937; 80053; 81001; 82565; 83605; 84145; 85025; 85610; 85730; 86140; 87040; 87070; 87077; 87086; 87186; 87205; 87449; 87636; 93005; 94760; 96365; 96366; 96375; 99285

== ENCOUNTER 2022-09-23 23:03 | Inpatient (IN) | payer OTHER ==
--- NOTE | 2022-09-24 00:03 | ED ---
General Adult HPI - General Chief complaint: Weakness Stated complaint: sepsis Time Seen by Provider: 09/23/22 23:26 Source: patient Mode of arrival: wheelchair Limitations: no limitations - History of Present Illness Initial comments: Dictation was produced using [employer] dictation software. please excuse any grammatical, word or spelling errors. Chief Complaint: 57-year-old male recently admitted to the hospital for UTI sepsis and pneumonia presents to the ER for worsening weakness and constitutional symptoms History of Present Illness: 57-year-old morbidly obese male recently diagnosed with UTI sepsis secondary to E. coli, recent pneumonia presents to the emergency department after having been discharge from the hospital in stable medical condition. A follow-up telemetry appointment with his primary care doctor, Dr. Tena. They complained to Dr. Aguilar that he is been feeling sick and having chills with worsening weakness and some bouts of confusion. She was instructed to come to the ER for readmission. The ROS documented in this emergency department record has been reviewed and confirmed by me. Those systems with pertinent positive or negative responses have been documented in the HPI. All other systems are other negative and/or noncontributory. PHYSICAL EXAM: General Impression: Alert and oriented x3, not in acute distress HEENT: Normocephalic atraumatic, extra-ocular movements intact, pupils equal and reactive to light bilaterally, mucous membranes moist. Cardiovascular: Heart regular rate and rhythm Chest: Able to complete full sentences, no retractions, no tachypnea Abdomen: abdomen soft, non-tender, non-distended, no organomegaly Musculoskeletal: Pulses present and equal in all extremities, no peripheral edema Motor: no focal deficits noted Neurological: CN II-XII grossly intact, no focal motor or sensory deficits noted Skin: Intact with no visualized rashes Psych: Normal affect and mood ED course: 57-year-old male who presents to the hospital for worsening weakness. Recently discharged from the hospital 3 days ago after short admission for UTI sepsis. Vital signs upon arrival shows a 86% on room air. Patient wears 4 L is cannula at home at baseline. Nursing notes and chart review was performed EKG interpreted by me: Ventricular rate 81, sinus rhythm,. 184, QRS 92, QTC 420. No [place] prolongation, no QTC prolongation, no ST or T-wave changes noted. EKG compared to 09/17/2022 showing no changes. Overall, this EKG is unremarkable Was pt. sent in by a medical professional or institution ([facility], [facility], urgent care, hospital, or [facility]...) When possible be specific @ -Sent in by primary care doctor over telemetry health visit Did you speak to anyone other than the patient for history (EMS, parent, family, police, friend...)? What history was obtained from this source @ -No Did you review nursing and triage notes (agree or disagree)? Why? @ -I reviewed and agree with nursing and triage notes Were old charts reviewed (outside hosp., previous admission, EMS record, old EKG, old radiological studies, urgent care reports/EKG's, [facility] records)? Report findings @ -Prior notes reviewed from recent admission Differential Diagnosis (chest pain, altered mental status, abdominal pain women, abdominal pain men, vaginal bleeding, musculoskeletal, weakness, fever, dyspnea, syncope, headache, dizziness, GI bleed, back pain, seizure, CVA, palpatations, mental health)? @ -Differential Fever: Pneumonia, viral URI, endocarditis, myocarditis, pericarditis, otitis, sinusitis, peritonsillar Abscess, retropharyngeal Abscess, epiglottitis, peritonitis, appendicitis, Elvia cystitis, diverticulitis, hepatitis, colitis, UTI, PID, TOA, pyelonephritis, prostatitis, epididymitis, meningitis, encephalitis, pulmonary embolism, CVA, thyroid storm, pancreatitis, adrenal crisis, cavernous sinus thrombosis, this is not meant to be an all-inclusive list. EKG interpreted by me (3pts min.). @ -As above X-rays interpreted by me (1pt min.). @ -None done CT interpreted by me (1pt min.). @ -None done U/S interpreted by me (1pt. min.). @ -None done What testing was considered but not performed or refused? (CT, X-rays, U/S, labs)? Why? @ -None What meds were considered but not given or refused? Why? @ -None Did you discuss the management of the patient with other professionals (professionals i.e. [facility], [facility], lab, RT, psych nurse, social service liaison, water well driller, teacher, career services officer, correctional case manager)? Give summary @ -Discussed with Dr. Milvia for admission Was smoking cessation discussed for >3mins.? @ -No Was critical care preformed (if so, how long)? @ -No Were there social determinants of health that impacted care today? How? (Homelessness, low income, unemployed, alcoholism, drug addiction, transportation, low edu. Level, literacy, decrease access to med. care, detention, rehab)? @ -No Was there de-escalation of care discussed even if they declined (Discuss DNR or withdrawal of care, Hospice)? DNR status @ -No What co-morbidities impacted this encounter? (DM, HTN, Smoking, COPD, CAD, Cancer, CVA, ARF, Chemo, Hep., AIDS, mental health diagnosis, sleep apnea, morbid obesity)? @ -None Was patient admitted / discharged? Hospital course, mention meds given and rout e, prescriptions, significant lab abnormalities, going to OR and other pertinent info. @ -57-year-old male presents to the emergency department for persistent malaise. Patient was recently discharged 3 days ago for several day admission to manage UTI sepsis. Laboratory evaluation shows persistent leukocytosis with white count 26.0. Metabolic panel is within acceptable limits. Patient for the most part appears to be stable however given that he is having worsening reported symptoms he is considered high risk. We had be admitted to the hospital for medical monitoring and consultations. Undiagnosed new problem with uncertain prognosis? @ -No Drug Therapy requiring intensive monitoring for toxicity (Heparin, Nitro, Insulin, Cardizem)? @ -No Were any procedures done? @ -No Diagnosis/symptom? Acute, or Chronic, or Acute on Chronic? Uncomplicated (without systemic symptoms) or Complicated (systemic symptoms)? @ -1. Acute malaise, 2. Recent admission for UTI sepsis Side effects of treatment? @ -No Exacerbation, Progression, or Severe Exacerbation? @ -No Poses a threat to life or bodily function? How? (Chest pain, [place], [place], pneumonia, PE, COPD, DKA, ARF, appy, cholecystitis, CVA, Diverticulitis, Homicidal, Suicidal, threat to staff... and all critical care pts) @ -yes - Related Data Home Medications Medication Instructions Recorded Confirmed allopurinoL [Zyloprim] 300 mg PO DAILY 12/17/18 09/17/22 Acetaminophen Tab [Tylenol] 1,000 mg PO Q8H 09/17/22 09/17/22 Colchicine 0.6 mg PO DAILY 09/17/22 09/17/22 Furosemide [Lasix] 40 mg PO BID 09/17/22 09/17/22 Gabapentin [Neurontin] 100 mg PO BID 09/17/22 09/17/22 Indomethacin [Indocin] 50 mg PO TID 09/17/22 09/17/22 Levothyroxine Sodium 300 mcg PO DAILY 09/17/22 09/17/22 Montelukast Sodium [Singulair] 10 mg PO HS 09/17/22 09/17/22 amLODIPine [Norvasc] 10 mg PO DAILY 09/17/22 09/17/22 oxyCODONE HCL [OxyIR] 5 mg PO Q6H PRN 09/17/22 09/17/22 traMADol HCL 50 mg PO BID PRN 09/17/22 09/17/22 Allergies Allergy/AdvReac Type Severity Reaction Status Date / Time Penicillins Allergy Rash/Hives Verified 09/23/22 23:14 Review of Systems ROS Statement: Those systems with pertinent positive or pertinent negative responses have been documented in the HPI. ROS Other: All systems not noted in ROS Statement are negative. Past Medical History Past Medical History: Cancer, GERD/Reflux, Hypertension, Thyroid Disorder Additional Past Medical History / Comment(s): Thyroid cancer with thyroidectomy, sciatica with coexisting acute pyriformis syndrome and lumbar discogenic pain R side L$-L%, lasix for bilateral lower leg/ankle edema, gout bilateral feet, past staph infections/wound base of skull/feet-pt does not recall if MRSA. History of Any Multi-Drug Resistant Organisms: None Reported Past Surgical History: Tonsillectomy Additional Past Surgical History / Comment(s): thyroid ca - thyroidectomy Past Anesthesia/Blood Transfusion Reactions: No Reported Reaction Past Psychological History: No Psychological Hx Reported Smoking Status: Never smoker Past Alcohol Use History: Occasional Past Drug Use History: None Reported - Past Family History Father History Unknown: Yes Additional Family Medical History / Comment(s): Father left when pt was 9 yrs old. Mother History Unknown: Yes Additional Family Medical History / Comment(s): Pt does not have much contact with his mother General Exam Limitations: no limitations Course Vital Signs 09/23/22 09/24/22 09/24/22 23:14 01:37 02:37 Temperature 98.8 F 99.6 F Pulse Rate 82 82 79 Respiratory 20 20 20 Rate Blood Pressure 159/84 147/92 150/74 O2 Sat by Pulse 86 L 92 L 94 L Oximetry Medical Decision Making - Lab Data Result diagrams: 09/24/22 00:03 09/24/22 00:03 Lab Results 09/24/22 09/24/22 09/24/22 Range/Units 00:03 00:03 00:03 WBC 26.0 H (3.8-10.6) k/uL RBC 5.42 (4.30-5.90) m/uL Hgb 14.1 (13.0-17.5) gm/dL Hct 46.0 (39.0-53.0) % MCV 85.0 (80.0-100.0) fL MCH 26.0 (25.0-35.0) pg MCHC 30.6 L (31.0-37.0) g/dL RDW 15.2 (11.5-15.5) % Plt Count 373 (150-450) k/uL MPV 8.5 Neutrophils % (Manual) 80 % Lymphocytes % (Manual) 8 % Monocytes % (Manual) 11 % Eosinophils % (Manual) 1 % Neutrophils # (Manual) 20.80 H (1.3-7.7) k/uL Lymphocytes # (Manual) 2.08 (1.0-4.8) k/uL Monocytes # (Manual) 2.86 H (0-1.0) k/uL Eosinophils # (Manual) 0.26 (0-0.7) k/uL Nucleated RBCs 0 (0-0) /100 WBC Manual Slide Review Performed Hypochromasia Moderate Sodium 137 (137-145) mmol/L Potassium 4.7 (3.5-5.1) mmol/L Chloride 90 L (98-107) mmol/L Carbon Dioxide 37 H (22-30) mmol/L Anion Gap 10 mmol/L BUN 20 (9-20) mg/dL Creatinine 1.05 (0.66-1.25) mg/dL Est GFR (CKD-EPI)AfAm >90 (>60 ml/min/1.73 sqM) Est GFR (CKD-EPI)NonAf 78 (>60 ml/min/1.73 sqM) Glucose 98 (74-99) mg/dL Plasma Lactic Acid Radames 1.6 (0.7-2.0) mmol/L Calcium 7.8 L (8.4-10.2) mg/dL Magnesium 2.1 (1.6-2.3) mg/dL Total Bilirubin 0.4 (0.2-1.3) mg/dL AST 28 (17-59) U/L ALT 17 (4-49) U/L Alkaline Phosphatase 140 H (38-126) U/L Total Protein 5.6 L (6.3-8.2) g/dL Albumin 2.7 L (3.5-5.0) g/dL Blood Type Blood Type Confirm Blood Type Recheck Bld Type Recheck Status Antibody Screen Spec Expiration Date 09/24/22 09/24/22 Range/Units 00:10 00:15 WBC (3.8-10.6) k/uL RBC (4.30-5.90) m/uL Hgb (13.0-17.5) gm/dL Hct (39.0-53.0) % MCV (80.0-100.0) fL MCH (25.0-35.0) pg MCHC (31.0-37.0) g/dL RDW (11.5-15.5) % Plt Count (150-450) k/uL MPV Neutrophils % (Manual) % Lymphocytes % (Manual) % Monocytes % (Manual) % Eosinophils % (Manual) % Neutrophils # (Manual) (1.3-7.7) k/uL Lymphocytes # (Manual) (1.0-4.8) k/uL Monocytes # (Manual) (0-1.0) k/uL Eosinophils # (Manual) (0-0.7) k/uL Nucleated RBCs (0-0) /100 WBC Manual Slide Review Hypochromasia Sodium (137-145) mmol/L Potassium (3.5-5.1) mmol/L Chloride (98-107) mmol/L Carbon Dioxide (22-30) mmol/L Anion Gap mmol/L BUN (9-20) mg/dL Creatinine (0.66-1.25) mg/dL Est GFR (CKD-EPI)AfAm (>60 ml/min/1.73 sqM) Est GFR (CKD-EPI)NonAf (>60 ml/min/1.73 sqM) Glucose (74-99) mg/dL Plasma Lactic Acid Radames (0.7-2.0) mmol/L Calcium (8.4-10.2) mg/dL Magnesium (1.6-2.3) mg/dL Total Bilirubin (0.2-1.3) mg/dL AST (17-59) U/L ALT (4-49) U/L Alkaline Phosphatase (38-126) U/L Total Protein (6.3-8.2) g/dL Albumin (3.5-5.0) g/dL Blood Type O Positive Blood Type Confirm O Positive Blood Type Recheck No Previous Record Bld Type Recheck Status CABO Indicated Antibody Screen NEGATIVE Spec Expiration Date 09/27/20222314 Disposition Clinical Impression: Sepsis secondary to UTI Disposition: ADMITTED IP TO THIS HOSP Condition: Serious Referrals: Jeri Tena MD [Primary Care Provider] - 1-2 days Decision Time: 02:00
[2022-09-24 01:01] LABS: HGB 14.1 gm/dL (13.0-17.5); Hypochromasia Moderate; MCHC 30.6 g/dL (31.0-37.0); Mean Platelet Volume 8.5; Platelet Count 373 k/uL (150-450); RBC 5.42 m/uL (4.30-5.90); RDW 15.2 % (11.5-15.5)
[2022-09-24 01:05] LABS: ALT 17 U/L (4-49); AST 28 U/L (17-59); African American GFR (CKD) >90 (>60 ml/min/1.73 sqM); Albumin 2.7 g/dL (3.5-5.0); Alkaline Phosphatase 140 U/L (38-126); Blood Urea Nitrogen 20 mg/dL (9-20); Calcium 7.8 mg/dL (8.4-10.2); Chloride 90 mmol/L (98-107); Glucose 98 mg/dL (74-99); Magnesium 2.1 mg/dL (1.6-2.3); Non-African American GFR(CKD) 78 (>60 ml/min/1.73 sqM); Potassium 4.7 mmol/L (3.5-5.1); Sodium 137 mmol/L (137-145); Total Bilirubin 0.4 mg/dL (0.2-1.3); Total Protein 5.6 g/dL (6.3-8.2)
[2022-09-24 01:11] LABS: Anion Gap 10 mmol/L
[2022-09-24 01:21] LABS: Carbon Dioxide 37 mmol/L (22-30)
[2022-09-24 01:50] LABS: Eosinophils # (M) 0.26 k/uL (0-0.7); Lymphocytes # (M) 2.08 k/uL (1.0-4.8); Monocytes # (M) 2.86 k/uL (0-1.0); Neutrophils % (M) 80 %; Nucleated Red Blood Cells 0 /100 WBC (0-0); Total Cells Counted 100
[2022-09-24] MEDS ORDERED: NALOXONE 0.4 MG/ML 1 ML VIAL IV PRN (02:52)
[2022-09-24] MEDS: SODIUM CHLORIDE 0.9% 1,000 ML IV SCH (04:12)
[2022-09-24 04:17] LABS: Appearance,Urine Clear (Clear); Bacteria,Urine Rare /hpf; Bilirubin,Urine Negative (Negative); Blood,Urine Moderate (Negative); Color,Urine Yellow; Glucose,Urine (UA) Negative (Negative); Ketones,Urine Negative (Negative); Leukocyte Esterase,Urine Moderate (Negative); Mucus,Urine Rare /hpf; Nitrite,Urine Negative (Negative); Protein,Urine 1+ (Negative); RBC,Urine 3 /hpf (0-5); Specific Gravity,Urine 1.013 (1.001-1.035); Squamous Epithelial Cell,Urine <1 /hpf (0-4); Urobilinogen,Urine <2.0 mg/dL (<2.0); WBC,Urine 48 /hpf (0-5)
[2022-09-24] MEDS ORDERED: traMADol 50 MG TAB PO PRN (09:26)
[2022-09-24] MEDS ORDERED: ACETAMINOPHEN TAB 500 MG TAB PO PRN (09:30)
[2022-09-24] MEDS ORDERED: cefTRIAXone 2 GM VIAL IVPB SCH (09:30)
[2022-09-24] MEDS: LEVOTHYROXINE 100 MCG TAB PO SCH (09:51)
[2022-09-24] MEDS: GABAPENTIN 100 MG CAP PO SCH ×2 (09:52→20:48)
[2022-09-24] MEDS: amLODIPine 10 MG TAB PO SCH (09:52)
[2022-09-24] MEDS: allopurinoL 300 MG TAB PO SCH (09:52)
[2022-09-24] MEDS: COLCHICINE 0.6 MG EACH PO SCH (10:23)
--- NOTE | 2022-09-24 11:44 | XR ---
EXAMINATION TYPE: XR chest 1V portable DATE OF EXAM: 09/24/2022 COMPARISON: NONE HISTORY: sob TECHNIQUE: Single frontal view of the chest is obtained. FINDINGS: There is no focal air space opacity, pleural effusion, or pneumothorax seen. The cardiac silhouette size is within normal limits. The osseous structures are intact. Coarsened interstitium. Heart size mildly prominent. IMPRESSION: Cardiomegaly correlate for interstitial pneumonitis.
--- NOTE | 2022-09-24 12:37 | P.CNPUL ---
History of Present Illness Consult date: 09/24/22 Requesting physician: Cheryl Barros Reason for consult: obstructive sleep apnea Chief complaint: Fever, weakness History of present illness: This is a pleasant super morbidly obese 57-year-old male patient with a known history of hypothyroidism, hypertension, gastroesophageal reflux disease, renal cell carcinoma status post left nephrectomy at [facility] in [place] approximately 2 weeks ago and frequent urinary tract infections most recently with E. coli and was discharged from here September 21 2022 on ceftriaxone. He came back to the emergency again last night instructed by his PCP for complaints of with complaints of malaise and chills with weakness and some confusion. White count 26.0. Hemoglobin 14.1. Platelets 373. Sodium 137. Potassium 4.7. Bicarb 37. BUN 20. Creatinine 1.05. Urinalysis with moderate blood, moderate leukocytes, high WBCs. Culture pending. He is continued on ceftriaxone. Chest x-ray reveals cardiomegaly. No pleural effusion. No pneumothorax. No focal airspace opacities. We were consulted regarding suspected sleep apnea. The patient does have an outside bilingual nanny and he did have a sleep study and was told he does have sleep apnea but he's been hospitalized so often that he has not been able to follow-up for obtaining a CPAP machine. His BMI is 63.1 kg per metered squared. Review of Systems REVIEW OF SYSTEMS: CONSTITUTIONAL: Generalized weakness, fatigue. Denies any recent significant weight loss or weight gain. EYES: Denies change in vision. EARS, NOSE, MOUTH, THROAT: Denies headaches, denies sore throat. CARDIOVASCULAR: Denies chest pain, palpitations or syncopal episodes. RESPIRATORY: Denies shortness of breath, cough, congestion or hemoptysis. GASTROINTESTINAL: Denies change in appetite, denies abdominal pain GENITOURINARY: Denies hematuria, denies infections. MUSKULOSKELETAL: Denies pain, denies swelling. INTEGUMENTARY: Denies rash, denies eczema. NEUROLOGICAL: Denies recent memory loss, no recent seizure activity. PSYCHIATRIC: Denies anxiety, denies depression. HEMATOLOGIC/LYMPHATIC: Denies anemia, denies enlarged lymph nodes. Past Medical History Past Medical History: Cancer, GERD/Reflux, Hypertension, Thyroid Disorder Additional Past Medical History / Comment(s): Thyroid cancer with thyroidectomy, current kidney cancer, sciatica, lasix for bilateral lower leg/ankle edema, gout bilateral feet, past staph infections/wound base of skull/feet-pt does not recall if MRSA. History of Any Multi-Drug Resistant Organisms: None Reported Past Surgical History: Tonsillectomy Additional Past Surgical History / Comment(s): thyroid ca - thyroidectomy Past Anesthesia/Blood Transfusion Reactions: No Reported Reaction Past Psychological History: No Psychological Hx Reported Additional Psychological History / Comment(s): Pt resides with his girlfriend. He works virtually. He is independent. Smoking Status: Never smoker Past Alcohol Use History: Occasional Past Drug Use History: None Reported - Past Family History Father History Unknown: Yes Additional Family Medical History / Comment(s): Father left when pt was 9 yrs old. Mother History Unknown: Yes Additional Family Medical History / Comment(s): Pt does not have much contact with his mother Medications and Allergies Home Medications Medication Instructions Recorded Confirmed Type allopurinoL [Zyloprim] 300 mg PO DAILY 12/17/18 09/24/22 History Acetaminophen Tab [Tylenol] 1,000 mg PO Q8H 09/17/22 09/24/22 History Colchicine 0.6 mg PO DAILY 09/17/22 09/24/22 History Furosemide [Lasix] 40 mg PO BID 09/17/22 09/24/22 History Gabapentin [Neurontin] 100 mg PO BID 09/17/22 09/24/22 History Indomethacin [Indocin] 50 mg PO TID 09/17/22 09/24/22 History Levothyroxine Sodium 300 mcg PO DAILY 09/17/22 09/24/22 History Montelukast Sodium [Singulair] 10 mg PO HS 09/17/22 09/24/22 History amLODIPine [Norvasc] 10 mg PO DAILY 09/17/22 09/24/22 History oxyCODONE HCL [OxyIR] 5 mg PO Q6H PRN 09/17/22 09/24/22 History traMADol HCL 50 mg PO BID PRN 09/17/22 09/24/22 History cefTRIAXone [Rocephin] 2 gm IV Q24H 09/24/22 09/24/22 History Allergies Allergy/AdvReac Type Severity Reaction Status Date / Time Penicillins Allergy Rash/Hives Verified 09/24/22 07:03 Physical Exam Vitals: Vital Signs Temp Pulse Pulse Resp BP BP Pulse Ox 09/24/22 07:24 99.1 F 75 20 166/76 90 L 09/24/22 03:45 99.1 F 89 20 93 L 09/24/22 02:37 79 20 150/74 94 L 09/24/22 01:37 99.6 F 82 20 147/92 92 L 09/23/22 23:14 98.8 F 82 20 159/84 86 L Intake and Output 09/23/22 09/24/22 09/24/22 22:59 06:59 14:59 Intake Total 360 Output Total 380 Balance -20 Intake: Oral 360 Output: Urine 380 Other: Weight 210.92 kg GENERAL EXAM: Alert, morbidly obese 57-year-old male, up in a chair at the bedside, on 3 L nasal cannula, comfortable in no apparent distress. HEAD: Normocephalic. EYES: Normal reaction of pupils, equal size. NOSE: Clear with pink turbinates. THROAT: No erythema or exudates. NECK: No masses, no JVD. CHEST: No chest wall deformity. LUNGS: Equal air entry with no crackles, wheeze, rhonchi or dullness. CVS: S1 and S2 normal with no audible murmur, regular rhythm. ABDOMEN: No hepatosplenomegaly, normal bowel sounds, no guarding or rigidity. SPINE: No scoliosis or deformity SKIN: No rashes CENTRAL NERVOUS SYSTEM: No focal deficits, tone is normal in all 4 extremities. EXTREMITIES: There is ages of chronic venous stasis, chronic edema. No clubbing, no cyanosis. Peripheral pulses are intact. Results - Laboratory Findings CBC and BMP: 09/24/22 00:03 09/24/22 00:03 Abnormal lab findings: Abnormal Labs 09/23/22 09/24/22 09/24/22 03:40 00:03 00:03 WBC 26.0 H MCHC 30.6 L Neutrophils # (Manual) 20.80 H Monocytes # (Manual) 2.86 H Chloride 90 L Carbon Dioxide 37 H Calcium 7.8 L Alkaline Phosphatase 140 H Total Protein 5.6 L Albumin 2.7 L Urine Protein 1+ H Urine Blood Moderate H Ur Leukocyte Esterase Moderate H Urine WBC 48 H Urine Bacteria Rare H Urine Mucus Rare H - Diagnostic Findings Chest x-ray: image reviewed Assessment and Plan Assessment: Generalized weakness, malaise secondary to chronic and ongoing urinary tract infection. Currently on ceftriaxone Acute hypoxemic respiratory failure secondary to acute exacerbation of diastolic congestive heart failure/cor pulmonale Chronic lower extremity edema secondary to above Recent diagnosis of left renal cell carcinoma status post left nephrectomy, at [facility] Super morbid obesity with BMI of 63 kg per metered square Obstructive sleep apnea, obesity/hypoventilation syndrome and patient has not started any home CPAP/BiPAP therapy Lifelong nonsmoker Recent hospitalization secondary to severe hypothyroidism as the patient was noncompliant with replacement therapy History of thyroid cancer status post thyroidectomy Degenerative joint disease Plan: The patient was seen and evaluated Chest x-ray, labs and medications reviewed Previously diagnosed with obstructive sleep apnea not on treatment thus far Can utilize BiPAP 12/6 and 35% FiO2 while here Titrate the FiO2 as tolerated To follow-up with his own bilingual nanny upon discharge We will continue to follow and make further recommendations based on his clinical status I have personally seen and examined the patient, performed the documentation and the assessment and plan as written. Number of minutes spent on the visit: 20.
--- NOTE | 2022-09-24 13:49 | HP ---
HISTORY AND PHYSICAL CHIEF COMPLAINT: Change in mental status and weakness. HISTORY OF PRESENT ILLNESS: This 57-year-old gentleman with past medical history of multiple medical problems, recently admitted with E. coli with UTI, sepsis, and pneumonia. The patient went home and the patient is confused and after a video visit with the primary physician, the patient was asked to come back to the hospital and patient admitted for further evaluation. White count is 26, and the patient was admitted for further evaluation and treatment. There is no history of any fever, rigors, or chills at this time. PAST MEDICAL HISTORY: Reviewed and include recent UTI, pneumonia, rest of the history is noted. HOME MEDICATIONS: Rocephin 2 g IV q.24 hours. Dose and rest of medication noted. PICC line in place. ALLERGIES: Penicillin. FAMILY HISTORY: No history of any heart disease or strokes in the family. SOCIAL HISTORY: No history of smoking. REVIEW OF SYSTEMS: A 14-point review is negative except as mentioned earlier. PHYSICAL EXAMINATION: VITAL SIGNS: Pulse 75, blood pressure 160/76, and respirations 20. HEENT: Conjunctivae normal. NECK: No jugular venous distention. CARDIOVASCULAR: S1, S2 muffled. RESPIRATIONS: Diminished at the bases basis. scattered rhonchi. ABDOMEN: Soft. NERVOUS SYSTEM: No focal deficits. LABORATORY DATA: Reviewed. ASSESSMENT: 1. Change in mental status and possibly metabolic encephalopathy, multifactorial, rule out sepsis. 2. History of recent E coli sepsis and pneumonia. 3. Increased WBC. 4. Possible sleep apnea syndrome. 5. Hypertension. 6. Morbid obesity with BMI of 63.1. 7. Multiple medical issues. RECOMMENDATIONS AND DISCUSSION: This 57-year-old gentleman who presented with multiple complex medical issues as mentioned. At this time, I recommend to continue the current medications. Continue the antibiotics repeat cultures, urine culture blood, and infectious disease evaluation also recommend pulmonary consultation. Patient might benefit from a CPAP at night. Otherwise, resume the home medications. Prognosis is extremely guarded because of multiple complex medical issues and further recommendations to follow. See orders for details. The patient also might be a candidate for the [facility] rehab because of multiple complex medical issues as listed above. MMODL / IJN: [id number] /
--- NOTE | 2022-09-24 16:22 | CT ---
EXAMINATION TYPE: CT abdomen w con DATE OF EXAM: 09/24/2022 COMPARISON: CT abdomen and pelvis 6 days ago HISTORY: left renal abscess CT DLP: 4623.9 mGycm Automated exposure control for dose reduction was used. TECHNIQUE: Helical acquisition of images was performed from the lung bases through the top of iliac crest to include entire abdomen. CONTRAST: Performed without Oral Contrast and with IV Contrast, patient injected with 100ml mL of Isovue 300. FINDINGS: Exam suboptimal due to patient's large body habitus. Incomplete visualization of the entire abdomen. Marked artifact. LUNG BASES: Stable small tiny left pleural effusion and left basilar atelectasis and/or infiltrate. LIVER/GB: Visualized liver is heterogeneously hypodense. Liver is not completely imaged. PANCREAS: No significant abnormality is seen. SPLEEN: No significant abnormality is seen. ADRENALS: No significant abnormality is seen. KIDNEYS: Calcifications or calculi in the outer aspect of the left kidney are redemonstrated. There i s decreased density of the left kidney relative to the right kidney. No visualized excretion is seen bilaterally. There is persistent left-sided retroperitoneal fluid. There is no well-formed drainable thick walled abscess identified. More hyperdense fluid seen on prior study now is not clearly seen. R esolved left-sided retroperitoneal air noted. BOWEL: Scattered colonic diverticula. No suspicious bowel dilatation. LYMPH NODES: No significant abnormality is seen. OSSEOUS STRUCTURES: No significant abnormality is seen. OTHER: None. IMPRESSION: MARKEDLY SUBOPTIMAL STUDY SIMILAR TO PRIOR. LEFT-SIDED RETROPERITONEAL FLUID IS FAIRLY STABLE IN SIZE FROM PRIOR. NO NEW WELL-FORMED THICK WALLED DRAINABLE FLUID COLLECTION OR ABSCESS SEEN. LEFT-SIDED RENAL CALCULI REDEMONSTRATED.
[2022-09-24] MEDS: INDOMETHACIN 25 MG CAP PO SCH ×2 (16:52→20:51)
[2022-09-24] MEDS: FUROSEMIDE 40 MG TAB PO SCH (16:52)
[2022-09-24] MEDS: MONTELUKAST 10 MG TAB PO SCH (20:48)
--- NOTE | 2022-09-24 23:23 | P.CONS ---
History of Present Illness - Reason for Consult Consult date: 09/24/22 - History of Present Illness Patient is a 57-year old male with a past medical history significant for left renal cell carcinoma history of hypertension hypothyroidism gastroesophageal flux disease with a recent cryotherapy to his left renal cell carcinoma patient subsequently was admitted at this facility from 09/17/2022 till 09/21/2022 patient did have evidence of E. coli bacteremia concerning for possible left-sided renal abscess patient was evaluated by urology and recommended no surgical intervention patient did clear his bacteremia resolution of his fever and the patient was feeling better we did place a PICC line and was advised a 2- week course of IV Rocephin 2 g daily, patient apparently mentioned he did okay for a day or 2 however over the last day or so patient is feeling very weak and lethargic and the patient did have a telehealth visit with his PCP who advised him to go back to the hospital patient was complaining of mostly generalized weakness hard to get out of the bed and was complaining of pain to the left flank area with a deep breath more of a dull aching to sharp pain moderate int ensity no radiation patient did have some nausea but no vomiting no chest pain some shortness of breath but no cough no abdominal pain no diarrhea with the symptom the patient has been evaluated by the ER physician on arrival to the ER patient was afebrile patient did have elevated white count of 26,000 with a left shift kidney. Has been normal urine was positive patient was continued on Rocephin 2 g daily patient did have a chest x-ray cardiomegaly correlate for interstitial pneumonitis infectious disease was consulted for further management of antibiotic therapy Past Medical History Past Medical History: Cancer, GERD/Reflux, Hypertension, Thyroid Disorder Additional Past Medical History / Comment(s): Thyroid cancer with thyroidectomy, current kidney cancer, sciatica, lasix for bilateral lower leg/ankle edema, gout bilateral feet, past staph infections/wound base of skull/feet-pt does not recall if MRSA. History of Any Multi-Drug Resistant Organisms: None Reported Past Surgical History: Tonsillectomy Additional Past Surgical History / Comment(s): thyroid ca - thyroidectomy Past Anesthesia/Blood Transfusion Reactions: No Reported Reaction Past Psychological History: No Psychological Hx Reported Additional Psychological History / Comment(s): Pt resides with his girlfriend. He works virtually. He is independent. Smoking Status: Never smoker Past Alcohol Use History: Occasional Past Drug Use History: None Reported - Past Family History Father History Unknown: Yes Additional Family Medical History / Comment(s): Father left when pt was 9 yrs old. Mother History Unknown: Yes Additional Family Medical History / Comment(s): Pt does not have much contact with his mother Medications and Allergies Home Medications Medication Instructions Recorded Confirmed Type allopurinoL [Zyloprim] 300 mg PO DAILY 12/17/18 09/24/22 History Acetaminophen Tab [Tylenol] 1,000 mg PO Q8H 09/17/22 09/24/22 History Colchicine 0.6 mg PO DAILY 09/17/22 09/24/22 History Furosemide [Lasix] 40 mg PO BID 09/17/22 09/24/22 History Gabapentin [Neurontin] 100 mg PO BID 09/17/22 09/24/22 History Indomethacin [Indocin] 50 mg PO TID 09/17/22 09/24/22 History Levothyroxine Sodium 300 mcg PO DAILY 09/17/22 09/24/22 History Montelukast Sodium [Singulair] 10 mg PO HS 09/17/22 09/24/22 History amLODIPine [Norvasc] 10 mg PO DAILY 09/17/22 09/24/22 History oxyCODONE HCL [OxyIR] 5 mg PO Q6H PRN 09/17/22 09/24/22 History traMADol HCL 50 mg PO BID PRN 09/17/22 09/24/22 History cefTRIAXone [Rocephin] 2 gm IV Q24H 09/24/22 09/24/22 History Allergies Allergy/AdvReac Type Severity Reaction Status Date / Time Penicillins Allergy Rash/Hives Verified 09/24/22 07:03 Physical Exam Vitals: Vital Signs Temp Pulse Pulse Resp BP BP Pulse Ox 09/24/22 07:24 99.1 F 75 20 166/76 90 L 09/24/22 03:45 99.1 F 89 20 93 L 09/24/22 02:37 79 20 150/74 94 L 09/24/22 01:37 99.6 F 82 20 147/92 92 L 09/23/22 23:14 98.8 F 82 20 159/84 86 L Intake and Output 09/23/22 09/24/22 09/24/22 22:59 06:59 14:59 Intake Total 360 Output Total 380 Balance -20 Intake: Oral 360 Output: Urine 380 Other: Weight 210.92 kg Results CBC & Chem 7: 09/24/22 00:03 09/24/22 00:03 Labs: Abnormal Lab Results - Last 24 Hours (Table) 09/23/22 09/24/22 09/24/22 Range/Units 03:40 00:03 00:03 WBC 26.0 H (3.8-10.6) k/uL MCHC 30.6 L (31.0-37.0) g/dL Neutrophils # (Manual) 20.80 H (1.3-7.7) k/uL Monocytes # (Manual) 2.86 H (0-1.0) k/uL Chloride 90 L (98-107) mmol/L Carbon Dioxide 37 H (22-30) mmol/L Calcium 7.8 L (8.4-10.2) mg/dL Alkaline Phosphatase 140 H (38-126) U/L Total Protein 5.6 L (6.3-8.2) g/dL Albumin 2.7 L (3.5-5.0) g/dL Urine Protein 1+ H (Negative) Urine Blood Moderate H (Negative) Ur Leukocyte Esterase Moderate H (Negative) Urine WBC 48 H (0-5) /hpf Urine Bacteria Rare H (None) /hpf Urine Mucus Rare H (None) /hpf Microbiology - Last 24 Hours (Table) 09/23/22 03:40 Urine Culture - Preliminary Urine,Voided Assessment and Plan Plan: 1patient was in the hospital generalized weakness pain to the left flank area in this patient with a left renal cell carcinoma with recent cryotherapy at [facility] and did have a E. coli bacteremia likely related to the urinary source that was sensitive to ceftriaxone now with worsening symptoms c ould be related to possible development of an abscess that may need to be drained in order to control this infection. 2we will obtain a CT of the abdomen with contrast and if any evidence of abscess may benefit from surgical drainage of it 3-patient to continue with Rocephin 2 g daily and we will follow-up on the blood cultures We will follow on clinical condition and cultures to further adjust medication if needed Thank you for this consultation we will follow the patient along with you Time with Patient: Greater than 30
[2022-09-25] MEDS: LEVOTHYROXINE 100 MCG TAB PO SCH (05:45)
[2022-09-25] MEDS: SODIUM CHLORIDE 0.9% 1,000 ML IV SCH (05:46)
[2022-09-25] MEDS: amLODIPine 10 MG TAB PO SCH (08:54)
[2022-09-25] MEDS: COLCHICINE 0.6 MG EACH PO SCH (08:54)
[2022-09-25] MEDS: INDOMETHACIN 25 MG CAP PO SCH ×3 (08:54→21:27)
[2022-09-25] MEDS: FUROSEMIDE 40 MG TAB PO SCH ×2 (08:54→15:50)
[2022-09-25] MEDS: allopurinoL 300 MG TAB PO SCH (08:54)
[2022-09-25] MEDS: GABAPENTIN 100 MG CAP PO SCH ×2 (08:54→21:27)
[2022-09-25 10:59] LABS: HCT 45.7 % (39.0-53.0); Hypochromasia Moderate; MCH 26.4 pg (25.0-35.0); MCHC 30.7 g/dL (31.0-37.0); MCV 85.9 fL (80.0-100.0); Platelet Count 353 k/uL (150-450); RBC 5.32 m/uL (4.30-5.90); RDW 15.2 % (11.5-15.5); WBC 15.2 k/uL (3.8-10.6)
[2022-09-25 12:09] LABS: Band Neutrophils % 7 %; Lymphocytes # (M) 1.52 k/uL (1.0-4.8); Metamyelocytes % 2 %; Monocytes # (M) 1.52 k/uL (0-1.0); Myelocytes # (M) 0.46 k/uL (0); Myelocytes % 3 %; Neutrophils % (M) 70 %; Nucleated Red Blood Cells 0 /100 WBC (0-0); Total Cells Counted 200
--- NOTE | 2022-09-25 12:32 | P.PN ---
Subjective Progress Note Date: 09/25/22 This is a pleasant super morbidly obese 57-year-old male patient with a known history of hypothyroidism, hypertension, gastroesophageal reflux disease, renal cell carcinoma status post left nephrectomy at [facility] in [place] approximately 2 weeks ago and frequent urinary tract infections most recently with E. coli and was discharged from here September 21 2022 on ceftriaxone. He came back to the emergency again last night instructed by his PCP for complaints of with complaints of malaise and chills with weakness and some confusion. White count 26.0. Hemoglobin 14.1. Platelets 373. Sodium 137. Potassium 4.7. Bicarb 37. BUN 20. Creatinine 1.05. Urinalysis with moderate blood, moderate leukocytes, high WBCs. Culture pending. He is continued on ceftriaxone. Chest x-ray reveals cardiomegaly. No pleural effusion. No pneumothorax. No focal airspace opacities. We were consulted regarding suspected sleep apnea. The patient does have an outside lasting machine operator bed and he did have a sleep study and was told he does have sleep apnea but he's been hospitalized so often that he has not been able to follow-up for obtaining a CPAP machine. His BMI is 63.1 kg per metered squared. The patient is seen today 09/25/2022 in follow-up on the regular medical floor. He is currently sitting up in a chair at the bedside. Awake and alert in no acute distress. Feeling better today compared to yesterday. No worsening shortness of breath, cough or congestion. Currently maintaining good O2 saturations in the mid 90s on 4 L/m per nasal cannula. Afebrile. Hemodynamically stable. He did not end up utilizing BiPAP last night after his discussion with respiratory therapy. He plans to get his settings provided by his lasting machine operator bed that performed a sleep study. Computed tomography scan of the abdomen yesterday was markedly suboptimal. There was some left-sided retroperitoneal fluid which was stable compared to previous. No new well formed thick walled drainable fluid collection or abscess seen. Left-sided renal calculi redemonstrated. White count 15.2. Hemoglobin 14.0. Urine culture pending. Remains on ceftriaxone. Objective - Vital Signs Vital signs: Vital Signs Temp 98.3 F 09/25/22 08:00 Pulse 78 09/25/22 08:00 Resp 17 09/25/22 08:00 BP 132/81 09/25/22 08:00 Pulse Ox 95 09/25/22 08:00 FiO2 30 09/24/22 12:36 Intake & Output 09/24/22 09/25/22 09/25/22 18:59 06:59 18:59 Intake Total 340 Balance 340 Intake: Intake, IV Titration 220 Amount Sodium Chloride 0.9% 1, 120 000 ml @ 20 mls/hr IV . Q24H CHEMO Rx#:[id number] cefTRIAXone 2 gm In 100 Sodium Chloride 0.9% 50 ml @ 100 mls/hr IVPB Q24HR CHEMO Rx#:[id number] Oral 120 Other: # Voids 1 - Exam GENERAL EXAM: Alert, morbidly obese, pleasant 57-year-old male, up in a chair at the bedside, on 4 L nasal cannula, comfortable in no apparent distress. HEAD: Normocephalic. EYES: Normal reaction of pupils, equal size. NOSE: Clear with pink turbinates. THROAT: No erythema or exudates. NECK: No masses, no JVD. CHEST: No chest wall deformity. LUNGS: Equal air entry with no crackles, wheeze, rhonchi or dullness. CVS: S1 and S2 normal with no audible murmur, regular rhythm. ABDOMEN: No hepatosplenomegaly, normal bowel sounds, no guarding or rigidity. SPINE: No scoliosis or deformity SKIN: No rashes CENTRAL NERVOUS SYSTEM: No focal deficits, tone is normal in all 4 extremities. EXTREMITIES: There is ages of chronic venous stasis, chronic edema. No clubbing, no cyanosis. Peripheral pulses are intact. - Labs CBC & Chem 7: 09/25/22 09:58 09/24/22 00:03 Labs: Abnormal Lab Results - Last 24 Hours (Table) 09/25/22 Range/Units 09:58 WBC 15.2 H (3.8-10.6) k/uL MCHC 30.7 L (31.0-37.0) g/dL Neutrophils # (Manual) 11.70 H (1.3-7.7) k/uL Monocytes # (Manual) 1.52 H (0-1.0) k/uL Metamyelocytes # (Man) 0.30 H (0) k/uL Myelocytes # (Manual) 0.46 H (0) k/uL Microbiology - Last 24 Hours (Table) 09/23/22 03:40 Urine Culture - Preliminary Urine,Voided Assessment and Plan Assessment: Generalized weakness, malaise secondary to chronic and ongoing urinary tract infection. Currently on ceftriaxone Acute hypoxemic respiratory failure secondary to acute exacerbation of diastolic congestive heart failure/cor pulmonale Chronic lower extremity edema secondary to above Recent diagnosis of left renal cell carcinoma status post left cryoablation, at [facility] Super morbid obesity with BMI of 63 kg per metered square Obstructive sleep apnea, obesity/hypoventilation syndrome and patient has not started any home CPAP/BiPAP therapy Lifelong nonsmoker Recent hospitalization secondary to severe hypothyroidism as the patient was noncompliant with replacement therapy History of thyroid cancer status post thyroidectomy Degenerative joint disease Plan: The patient was seen and evaluated Labs and medications reviewed Continued on ceftriaxone Urine culture pending Patient decided to wait on BiPAP until seen in the outpatient setting To follow-up with his own lasting machine operator bed upon discharge I have personally seen and examined the patient, performed the documentation and the assessment and plan as written. Number of minutes spent on the visit: 10.
--- NOTE | 2022-09-25 15:23 | P.PN ---
Subjective Progress Note Date: 09/25/22 Principal diagnosis: E. coli bacteremia and question of left renal abscess Patient is a 57-year old male with a past medical history significant for left renal cell carcinoma history of hypertension hypothyroidism gastroesophageal flux disease with a recent cryotherapy to his left renal cell carcinoma patient subsequently was admitted at this facility from 09/17/2022 till 09/21/2022 patient did have evidence of E. coli bacteremia concerning for possible left-sided renal abscess patient was evaluated by urology and recommended no surgical intervention, discharged on Rocephin and subsequently presented back to the hospital with weakness and worsening symptoms. on today's evaluation that is 09/25/2022 the patient is afebrile, the patient mentioned feeling better his breathing comfortably currently on 4 L nasal cannula patient denies having any chest pain worsening cough or sputum production left flank pain has improved no vomiting or diarrhea Objective - Vital Signs Vital signs: Vital Signs Temp 98.3 F 09/25/22 13:35 Pulse 74 09/25/22 13:35 Resp 15 09/25/22 13:35 BP 138/93 09/25/22 13:35 Pulse Ox 93 L 09/25/22 13:35 FiO2 30 09/24/22 12:36 Intake & Output 09/24/22 09/25/22 09/25/22 18:59 06:59 18:59 Intake Total 340 Balance 340 Intake: Intake, IV Titration 220 Amount Sodium Chloride 0.9% 1, 120 000 ml @ 20 mls/hr IV . Q24H CHEMO Rx#:[id number] cefTRIAXone 2 gm In 100 Sodium Chloride 0.9% 50 ml @ 100 mls/hr IVPB Q24HR CHEMO Rx#:[id number] Oral 120 Other: # Voids 1 - Exam GENERAL DESCRIPTION: Middle-age male up in bed in no distress RESPIRATORY SYSTEM: Unlabored breathing , decreased breath sounds at bases HEART: S1 S2 regular rate and rhythm , ABDOMEN: Soft , no tenderness EXTREMITIES: No edema feet - Labs CBC & Chem 7: 09/25/22 09:58 09/24/22 00:03 Labs: Abnormal Lab Results - Last 24 Hours (Table) 09/25/22 Range/Units 09:58 WBC 15.2 H (3.8-10.6) k/uL MCHC 30.7 L (31.0-37.0) g/dL Neutrophils # (Manual) 11.70 H (1.3-7.7) k/uL Monocytes # (Manual) 1.52 H (0-1.0) k/uL Metamyelocytes # (Man) 0.30 H (0) k/uL Myelocytes # (Manual) 0.46 H (0) k/uL Assessment and Plan (1) Sepsis secondary to UTI Current Visit: Yes Status: Acute Code(s): A41.9 - SEPSIS, UNSPECIFIED ORGANISM; N39.0 - URINARY TRACT INFECTION, SITE NOT SPECIFIED SNOMED Code(s): 823256549 (2) E coli bacteremia Current Visit: No Status: Acute Priority: High Code(s): R78.81 - B ACTEREMIA; B96.20 - UNSP ESCHERICHIA COLI THE CAUSE OF DISEASES CLASSD [facility] SNOMED Code(s): 876482303216 Plan: 1patient was in the hospital generalized weakness pain to the left flank area in this patient with a left renal cell carcinoma with recent cryotherapy at [facility] and did have a E. coli bacteremia likely related to the urinary source that was sensitive to ceftriaxone now with worsening symptoms could be related to possible development of an abscess that may need to be drained in order to control this infection. 2patient did have a CT of the abdomen with contrast mentioned evidence of any drainable abscess 3-patient seemed to have a short leg improvement and will continue with Rocephin 2 g daily and we will follow-up on the blood cultures Time with Patient: Less than 30
[2022-09-25 18:25] LABS: African American GFR (CKD) 76.8 (60.0-200.0); Anion Gap 10.2 mmol/L (10.00-18.00); BUN/Creat Ratio 15.58 Ratio (12.00-20.00); Blood Urea Nitrogen 18.7 mg/dL (9.0-27.0); Calcium 8.2 mg/dL (8.7-10.3); Carbon Dioxide 34.8 mmol/L (20.0-27.5); Non-African American GFR(CKD) 66.3 (60.0-200.0)
[2022-09-25] MEDS: MONTELUKAST 10 MG TAB PO SCH (21:27)
--- NOTE | 2022-09-26 04:59 | PN ---
PROGRESS NOTE DATE OF SERVICE: 09/25/2022 SUBJECTIVE: This is a 57-year-old gentleman who was admitted with change in mental status and possible metabolic encephalopathy and possible sepsis, is being closely monitored at this time. The patient has elevated white count. The patient is on broad- spectrum IV antibiotics, the new cultures are negative so far following the patient closely. Abdominal CAT scan showed left-sided retroperitoneal fluid fairly stable in size from the prior. ASSESSMENT: 1. Change in mental status and possible metabolic encephalopathy multifactorial, rule out sepsis. 2. History of recent Escherichia coli sepsis and pneumonia. 3. Left retroperitoneal fluid collection. 4. Increased WBC. 5. Possible sleep apnea. 6. History of hypertension. 7. History of morbid obesity with BMI of 63.1. 8. Multiple medical issues. DISCUSSION AND RECOMMENDATIONS: Recommend to continue current management. Continue with the antibiotics. Otherwise, closely follow with Infectious Disease, Pulmonary. Empiric antibiotics. Guarded prognosis. Further recommendations to follow. MMODL / IJN: [id number] / MTDD
[2022-09-26] MEDS: LEVOTHYROXINE 100 MCG TAB PO SCH (05:54)
[2022-09-26] MEDS: SODIUM CHLORIDE 0.9% 1,000 ML IV SCH (05:54)
[2022-09-26] MEDS: amLODIPine 10 MG TAB PO SCH (08:14)
[2022-09-26] MEDS: GABAPENTIN 100 MG CAP PO SCH ×2 (08:14→21:04)
[2022-09-26] MEDS: FUROSEMIDE 40 MG TAB PO SCH ×2 (08:14→15:39)
[2022-09-26] MEDS: COLCHICINE 0.6 MG EACH PO SCH (08:15)
[2022-09-26] MEDS: allopurinoL 300 MG TAB PO SCH (08:15)
[2022-09-26] MEDS: INDOMETHACIN 25 MG CAP PO SCH ×3 (08:15→21:04)
--- NOTE | 2022-09-26 10:49 | P.PN ---
Subjective Progress Note Date: 09/26/22 This is a pleasant super morbidly obese 57-year-old male patient with a known history of hypothyroidism, hypertension, gastroesophageal reflux disease, renal cell carcinoma status post left nephrectomy at [facility] in [place] approximately 2 weeks ago and frequent urinary tract infections most recently with E. coli and was discharged from here September 21 2022 on ceftriaxone. He came back to the emergency again last night instructed by his PCP for complaints of with complaints of malaise and chills with weakness and some confusion. White count 26.0. Hemoglobin 14.1. Platelets 373. Sodium 137. Potassium 4.7. Bicarb 37. BUN 20. Creatinine 1.05. Urinalysis with moderate blood, moderate leukocytes, high WBCs. Culture pending. He is continued on ceftriaxone. Chest x-ray reveals cardiomegaly. No pleural effusion. No pneumothorax. No focal airspace opacities. We were consulted regarding suspected sleep apnea. The patient does have an outside cook house supervisor and he did have a sleep study and was told he does have sleep apnea but he's been hospitalized so often that he has not been able to follow-up for obtaining a CPAP machine. His BMI is 63.1 kg per metered squared. The patient is seen today 09/25/2022 in follow-up on the regular medical floor. He is currently sitting up in a chair at the bedside. Awake and alert in no acute distress. Feeling better today compared to yesterday. No worsening shortness of breath, cough or congestion. Currently maintaining good O2 saturations in the mid 90s on 4 L/m per nasal cannula. Afebrile. Hemodynamically stable. He did not end up utilizing BiPAP last night after his discussion with respiratory therapy. He plans to get his settings provided by his cook house supervisor that performed a sleep study. Computed tomography scan of the abdomen yesterday was markedly suboptimal. There was some left-sided retroperitoneal fluid which was stable compared to previous. No new well formed thick walled drainable fluid collection or abscess seen. Left-sided renal calculi redemonstrated. White count 15.2. Hemoglobin 14.0. Urine culture pending. Remains on ceftriaxone. The patient is seen today 09/26/2092 in follow-up on the regular medical floor. Again sitting up in a chair at the bedside. Awake and alert in no acute distress. Denies any shortness of breath, cough or congestion. Maintaining O2 saturations in the 90s on 4 L/m per nasal cannula. Afebrile. Hemodynamically stable. Urine culture pending. Remains on ceftriaxone. Oral diuretics. Objective - Vital Signs Vital signs: Vital Signs Temp 97.7 F 09/26/22 07:45 Pulse 71 09/26/22 07:45 Resp 18 09/26/22 07:45 BP 122/72 09/26/22 07:45 Pulse Ox 93 L 09/26/22 08:12 FiO2 30 09/24/22 12:36 Intake & Output 09/25/22 09/26/22 09/26/22 18:59 06:59 18:59 Intake Total 1080 Balance 1080 Intake: Oral 1080 Other: # Voids 2 1 - Exam GENERAL EXAM: Alert, morbidly obese, 57-year-old male, up in a chair, on 4 L nasal cannula, comfortable in no apparent distress. HEAD: Normocephalic. EYES: Normal reaction of pupils, equal size. NOSE: Clear with pink turbinates. THROAT: No erythema or exudates. NECK: No masses, no JVD. CHEST: No chest wall deformity. LUNGS: Equal air entry with no crackles, wheeze, rhonchi or dullness. CVS: S1 and S2 normal with no audible murmur, regular rhythm. ABDOMEN: No hepatosplenomegaly, normal bowel sounds, no guarding or rigidity. SPINE: No scoliosis or deformity SKIN: No rashes CENTRAL NERVOUS SYSTEM: No focal deficits, tone is normal in all 4 extremities. EXTREMITIES: There is ages of chronic venous stasis, chronic edema. No clubbing, no cyanosis. Peripheral pulses are intact. - Labs CBC & Chem 7: 09/25/22 09:58 09/25/22 06:43 Labs: Abnormal Lab Results - Last 24 Hours (Table) 09/25/22 09/25/22 Range/Units 06:43 09:58 WBC 15.2 H (3.8-10.6) k/uL MCHC 30.7 L (31.0-37.0) g/dL Neutrophils # (Manual) 11.70 H (1.3-7.7) k/uL Monocytes # (Manual) 1.52 H (0-1.0) k/uL Metamyelocytes # (Man) 0.30 H (0) k/uL Myelocytes # (Manual) 0.46 H (0) k/uL Carbon Dioxide 34.8 H (20.0-27.5) mmol/L Glucose 114 H (70-110) mg/dL Calcium 8.2 L (8.7-10.3) mg/dL Assessment and Plan Assessment: Generalized weakness, malaise secondary to chronic and ongoing urinary tract infection. Urine culture pending. Currently on ceftriaxone Acute hypoxemic respiratory failure secondary to acute exacerbation of diastolic congestive heart failure/cor pulmonale Chronic lower extremity edema secondary to above Recent diagnosis of left renal cell carcinoma status post left cryoablation, at [facility] Super morbid obesity with BMI of 63 kg per metered square Obstructive sleep apnea, obesity/hypoventilation syndrome and patient has not started any home CPAP/BiPAP therapy Lifelong nonsmoker Recent hospitalization secondary to severe hypothyroidism as the patient was noncompliant with replacement therapy History of thyroid cancer status post thyroidectomy Degenerative joint disease Plan: The patient was seen and evaluated Medications reviewed Urine culture pending Continued on ceftriaxone Stable from the pulmonary standpoint Patient decided to wait on BiPAP until seen in the outpatient setting To follow-up with his own cook house supervisor upon discharge I have personally seen and examined the patient, performed the documentation and the assessment and plan as written. Number of minutes spent on the visit: 10.
[2022-09-26 11:04] LABS: African American GFR (CKD) 85.3 (60.0-200.0); Albumin 2.6 g/dL (3.8-4.9); Anion Gap 8.3 mmol/L (10.00-18.00); BUN/Creat Ratio 18.55 Ratio (12.00-20.00); Blood Urea Nitrogen 20.4 mg/dL (9.0-27.0); Calcium 7.8 mg/dL (8.7-10.3); Carbon Dioxide 36.7 mmol/L (20.0-27.5); Globulin 2.6 g/dL (1.6-3.3); Non-African American GFR(CKD) 73.6 (60.0-200.0); Potassium 4.7 mmol/L (3.5-5.5); Total Bilirubin 0.3 mg/dL (0.30-1.20); Total Protein 5.2 g/dL (6.2-8.2)
[2022-09-26 11:24] LABS: Basophils # (M) 0 X 10*3/uL (0.00-0.10); Eosinophils # (M) 0.17 X 10*3/uL (0.04-0.35); HCT 44.8 % (39.6-50.0); MCH 25.1 pg (27.0-32.0); MCV 86.7 fL (80.0-97.0); Mean Platelet Volume 9.1 fL (9.5-12.2); Metamyelocytes % 2 % (0-0); Monocytes # (M) 2.23 X 10*3/uL (0.20-1.00); Myelocytes % 3 % (0-0); NRBC Per 100 WBC 0 /100 WBCS (0.0-0.0); Neutrophils # (M) 12.72 X 10*3/uL (2.00-8.90); Neutrophils % (M) 74 %; Platelet Count 342 X 10*3/uL (140-440); RBC 5.17 X 10*6/uL (4.40-5.60); RDW 15.8 % (11.5-14.5); WBC 17.19 X 10*3/uL (4.50-10.00)
--- NOTE | 2022-09-26 16:02 | P.GSCN ---
History of Present Illness Consult date: 09/26/22 Reason for Consult: left renal mass History of present illness: This is a 57 yo S/P cryoablation of 5 cm left sided renal mass at [facility] in [facility]. He was recently admitted to the hospital with bactremia secondary to UTI earlier this month. At that time he underwent CT abdomen/pelvis which showed evidence of left renal mass necrosis vs abscess. On review of imaging it was more likely to be tumor necrosis rather than renal abscess. Patient clinically improved and was discharged home. He presented back to the ED on 09/24 with fatigue and on evaluation had evidence of leucocytosis at 26,000. He underwent repeat CT which showed slight improvement of stranding a fluid collection no obvious renal abscess. At this time he indicates his fatigue has improved. Denies any abdominal pain/ flank pain. Denies any nausea/vomiting, dysuria or gross hematuria Review of Systems - Constitutional Reports fatigue, Denies chills, Denies fever - EENT Ears, nose, mouth and throat: Denies dysphagia - Cardiovascular Reports shortness of breath, Denies chest pain - Respiratory Denies cough, Denies 7 - Gastrointestinal Reports as per HPI - Genitourinary Denies dysuria, Denies hematuria - Neurological Denies headaches, Denies syncope Past Medical History Past Medical History: Cancer, GERD/Reflux, Hypertension, Thyroid Disorder Additional Past Medical History / Comment(s): Thyroid cancer with thyroidectomy, current kidney cancer, sciatica, lasix for bilateral lower leg/ankle edema, gout bilateral feet, past staph infections/wound base of skull/feet-pt does not recall if MRSA. History of Any Multi-Drug Resistant Organisms: None Reported Past Surgical History: Tonsillectomy Additional Past Surgical History / Comment(s): thyroid ca - thyroidectomy Past Anesthesia/Blood Transfusion Reactions: No Reported Reaction Past Psychological History: No Psychological Hx Reported Additional Psychological History / Comment(s): Pt resides with his girlfriend. He works virtually. He is independent. Smoking Status: Never smoker Past Alcohol Use History: Occasional Past Drug Use History: None Reported - Past Family History Father History Unknown: Yes Additional Family Medical History / Comment(s): Father left when pt was 9 yrs old. Mother History Unknown: Yes Additional Family Medical History / Comment(s): Pt does not have much contact with his mother Medications and Allergies Home Medications Medication Instructions Recorded Confirmed Type allopurinoL [Zyloprim] 300 mg PO DAILY 12/17/18 09/24/22 History Acetaminophen Tab [Tylenol] 1,000 mg PO Q8H 09/17/22 09/24/22 History Colchicine 0.6 mg PO DAILY 09/17/22 09/24/22 History Furosemide [Lasix] 40 mg PO BID 09/17/22 09/24/22 History Gabapentin [Neurontin] 100 mg PO BID 09/17/22 09/24/22 History Indomethacin [Indocin] 50 mg PO TID 09/17/22 09/24/22 History Levothyroxine Sodium 300 mcg PO DAILY 09/17/22 09/24/22 History Montelukast Sodium [Singulair] 10 mg PO HS 09/17/22 09/24/22 History amLODIPine [Norvasc] 10 mg PO DAILY 09/17/22 09/24/22 History oxyCODONE HCL [OxyIR] 5 mg PO Q6H PRN 09/17/22 09/24/22 History traMADol HCL 50 mg PO BID PRN 09/17/22 09/24/22 History cefTRIAXone [Rocephin] 2 gm IV Q24H 09/24/22 09/24/22 History Allergies Allergy/AdvReac Type Severity Reaction Status Date / Time Penicillins Allergy Rash/Hives Verified 09/24/22 07:03 Surgical - Exam Vital Signs Temp Pulse Resp BP Pulse Ox 98.8 F 82 20 159/84 86 L 09/23/22 23:14 09/23/22 23:14 09/23/22 23:14 09/23/22 23:14 09/23/22 23:14 - General no distress, no pain - Eyes normal ocular movement, no icteric - ENT normal nares, normal mucosa - Neck no masses, trachea midline - Respiratory normal expansion, normal respiratory effort - Abdomen Abdomen: soft, non tender, no distended - Psychiatric oriented to time, oriented to person, oriented to place Results - Labs 09/26/22 05:46 09/26/22 05:46 Abnormal Lab Results - Last 24 Hours (Table) 09/25/22 09/26/22 09/26/22 Range/Units 06:43 05:46 05:46 WBC 17.19 H (4.50-10.00) X 10*3/uL MCH 25.1 L (27.0-32.0) pg MCHC 29.0 L (32.0-37.0) g/dL RDW 15.8 H (11.5-14.5) % MPV 9.1 L (9.5-12.2) fL Metamyelocytes % 2 H (0-0) % Myelocytes % 3 H (0-0) % Neutrophils # (Manual) 12.72 H (2.00-8.90) X 10*3/uL Monocytes # (Manual) 2.23 H (0.20-1.00) X 10*3/uL Chloride 94 L (96-109) mmol/L Carbon Dioxide 34.8 H 36.7 H (20.0-27.5) mmol/L Anion Gap 8.30 L (10.00-18.00) mmol/L Glucose 114 H (70-110) mg/dL Calcium 8.2 L 7.8 L (8.7-10.3) mg/dL Total Protein 5.2 L (6.2-8.2) g/dL Albumin 2.6 L (3.8-4.9) g/dL Albumin/Globulin Ratio 1.00 L (1.60-3.17) g/dL Microbiology - Last 24 Hours (Table) 09/23/22 03:40 Urine Culture - Final Urine,Voided Jacquelyn albicans Diabetes panel 09/25/22 09/26/22 Range/Units 06:43 05:46 Sodium 141 139 (135-145) mmol/L Potassium 5.0 4.7 (3.5-5.5) mmol/L Chloride 96 94 L (96-109) mmol/L Carbon Dioxide 34.8 H 36.7 H (20.0-27.5) mmol/L BUN 18.7 20.4 (9.0-27.0) mg/dL Creatinine 1.2 1.1 (0.6-1.5) mg/dL Glucose 114 H 88 (70-110) mg/dL Calcium 8.2 L 7.8 L (8.7-10.3) mg/dL AST 22 (14-35) U/L ALT 14 (10-49) U/L Alkaline Phosphatase 105 (41-126) U/L Total Protein 5.2 L (6.2-8.2) g/dL Albumin 2.6 L (3.8-4.9) g/dL Calcium panel 09/25/22 09/26/22 Range/Units 06:43 05:46 Calcium 8.2 L 7.8 L (8.7-10.3) mg/dL Albumin 2.6 L (3.8-4.9) g/dL Pituitary panel 09/25/22 09/26/22 Range/Units 06:43 05:46 Sodium 141 139 (135-145) mmol/L Potassium 5.0 4.7 (3.5-5.5) mmol/L Chloride 96 94 L (96-109) mmol/L Carbon Dioxide 34.8 H 36.7 H (20.0-27.5) mmol/L BUN 18.7 20.4 (9.0-27.0) mg/dL Creatinine 1.2 1.1 (0.6-1.5) mg/dL Glucose 114 H 88 (70-110) mg/dL Calcium 8.2 L 7.8 L (8.7-10.3) mg/dL Adrenal panel 09/25/22 09/26/22 Range/Units 06:43 05:46 Sodium 141 139 (135-145) mmol/L Potassium 5.0 4.7 (3.5-5.5) mmol/L Chloride 96 94 L (96-109) mmol/L Carbon Dioxide 34.8 H 36.7 H (20.0-27.5) mmol/L BUN 18.7 20.4 (9.0-27.0) mg/dL Creatinine 1.2 1.1 (0.6-1.5) mg/dL Glucose 114 H 88 (70-110) mg/dL Calcium 8.2 L 7.8 L (8.7-10.3) mg/dL Total Bilirubin 0.30 (0.30-1.20) mg/dL AST 22 (14-35) U/L ALT 14 (10-49) U/L Alkaline Phosphatase 105 (41-126) U/L Total Protein 5.2 L (6.2-8.2) g/dL Albumin 2.6 L (3.8-4.9) g/dL Assessment and Plan Assessment: This is a 57 yo S/P cryoablation of 5 cm left sided renal mass at [facility]. Reviewed his imaging no significant changes on imaging compared to previous CT. most likely finding on CT are more likely renal mass necrosis rather than a renal abscess. Clinically patient is improving. From urology standpoint no intervention, advised to continue to follow up with his IR at [facility]
--- NOTE | 2022-09-26 16:25 | P.PN ---
Subjective Progress Note Date: 09/26/22 Principal diagnosis: E. coli bacteremia and question of left renal abscess Patient is a 57-year old male with a past medical history significant for left renal cell carcinoma history of hypertension hypothyroidism gastroesophageal flux disease with a recent cryotherapy to his left renal cell carcinoma patient subsequently was admitted at this facility from 09/17/2022 till 09/21/2022 patient did have evidence of E. coli bacteremia concerning for possible left-sided renal abscess patient was evaluated by urology and recommended no surgical intervention, discharged on Rocephin and subsequently presented back to the hospital with weakness and worsening symptoms. on today's evaluation that is 09/26/2022 the patient remains to be afebrile, the patient is feeling better, the patient is breathing comfortably currently on 4 L nasal cannula, patient denies having any chest pain worsening cough or sputum production left flank pain has improved no vomiting or diarrhea Objective - Vital Signs Vital signs: Vital Signs Temp 98.5 F 09/26/22 14:45 Pulse 65 09/26/22 14:45 Resp 19 09/26/22 14:45 BP 136/70 09/26/22 14:45 Pulse Ox 95 09/26/22 14:45 FiO2 30 09/24/22 12:36 Intake & Output 09/25/22 09/26/22 09/26/22 18:59 06:59 18:59 Intake Total 1080 Balance 1080 Intake: Oral 1080 Other: # Voids 2 1 - Exam GENERAL DESCRIPTION: Middle-age male up in bed in no distress RESPIRATORY SYSTEM: Unlabored breathing , decreased breath sounds at bases HEART: S1 S2 regular rate and rhythm , ABDOMEN: Soft , no tenderness EXTREMITIES: No edema feet - Labs CBC & Chem 7: 09/26/22 05:46 09/26/22 05:46 Labs: Abnormal Lab Results - Last 24 Hours (Table) 09/25/22 09/26/22 09/26/22 Range/Units 06:43 05:46 05:46 WBC 17.19 H (4.50-10.00) X 10*3/uL MCH 25.1 L (27.0-32.0) pg MCHC 29.0 L (32.0-37.0) g/dL RDW 15.8 H (11.5-14.5) % MPV 9.1 L (9.5-12.2) fL Metamyelocytes % 2 H (0-0) % Myelocytes % 3 H (0-0) % Neutrophils # (Manual) 12.72 H (2.00-8.90) X 10*3/uL Monocytes # (Manual) 2.23 H (0.20-1.00) X 10*3/uL Chloride 94 L (96-109) mmol/L Carbon Dioxide 34.8 H 36.7 H (20.0-27.5) mmol/L Anion Gap 8.30 L (10.00-18.00) mmol/L Glucose 114 H (70-110) mg/dL Calcium 8.2 L 7.8 L (8.7-10.3) mg/dL Total Protein 5.2 L (6.2-8.2) g/dL Albumin 2.6 L (3.8-4.9) g/dL Albumin/Globulin Ratio 1.00 L (1.60-3.17) g/dL Microbiology - Last 24 Hours (Table) 09/23/22 03:40 Urine Culture - Final Urine,Voided Jacquelyn albicans Assessment and Plan (1) Sepsis secondary to UTI Current Visit: Yes Status: Acute Code(s): A41.9 - SEPSIS, UNSPECIFIED ORGANISM; N39.0 - URINARY TRACT INFECTION, SITE NOT SPECIFIED SNOMED Code(s): 358162438 (2) E coli bacteremia Current Visit: No Status: Acute Priority: High Code(s): R78.81 - BACTEREMIA; B96.20 - UNSP ESCHERICHIA COLI THE CAUSE OF DISEASES CLASSD [facility] SNOMED Code(s): 096614598880 Plan: 1patient was in the hospital generalized weakness pain to the left flank area in this patient with a left renal cell carcinoma with recent cryotherapy at [facility] and did have a E. coli bacteremia likely related to the urinary source that was sensitive to ceftriaxone now with worsening symptoms could be related to possible development of an abscess that may need to be drained in order to control this infection. 2patient did have a CT of the abdomen with contrast mentioned evidence of any drainable abscess, patient has been evaluated by urology recommending no surgical intervention 3-patient has shown some clinical improvement we will continue the patient on Rocephin and recheck his inflammatory markers significant other at the bedside and multiple questions and concerns were answered Time with Patient: Less than 30
[2022-09-26] MEDS: FLUCONAZOLE 100 MG TAB PO SCH (16:54)
[2022-09-26] MEDS: MONTELUKAST 10 MG TAB PO SCH (21:04)
--- NOTE | 2022-09-26 23:45 | PN ---
PROGRESS NOTE DATE OF SERVICE: 09/26/2022 SUBJECTIVE: This is a 57-year-old gentleman who was admitted with change in mental status, metabolic encephalopathy, to rule out sepsis, had Jacquelyn albicans grown from the urine. The WBC is still elevated at 17.19. The possibility of renal abscess is also being raised at this time. OBJECTIVE: VITAL SIGNS: Pulse is 65, blood pressure , respirations 19. CHEST: A few scattered rhonchi. ABDOMEN: Soft, obese. LEGS: No edema. No swelling. NERVOUS SYSTEM: No focal deficits. LABORATORY DATA: Reviewed. ASSESSMENT: 1. Change in mental status with possible metabolic encephalopathy, multifactorial, possibly sepsis. 2. History of recent Escherichia coli sepsis and pneumonia. 3. Left retroperitoneal fluid collection, rule out perinephric or renal abscess. 4. Jacquelyn in the urine. 5. Increased WBC. 6. Possible sleep apnea. 7. Hypertension. 8. Multiple medical issues. RECOMMENDATIONS: Recommend to continue current medications and continue symptomatic treatment. Advised Urology evaluation and otherwise I would also recommend to continue the antibiotics. Follow the cultures. Add Diflucan to the current regimen. Repeat labs. The prognosis is extremely guarded. Further recommendations to follow. MMODL / IJN: [id number] /
[2022-09-27] MEDS: SODIUM CHLORIDE 0.9% 1,000 ML IV SCH ×2 (03:25→22:52)
[2022-09-27] MEDS: LEVOTHYROXINE 100 MCG TAB PO SCH (06:18)
[2022-09-27] MEDS: COLCHICINE 0.6 MG EACH PO SCH (08:15)
[2022-09-27] MEDS: allopurinoL 300 MG TAB PO SCH (08:15)
[2022-09-27] MEDS: FUROSEMIDE 40 MG TAB PO SCH ×2 (08:15→16:18)
[2022-09-27] MEDS: GABAPENTIN 100 MG CAP PO SCH ×2 (08:15→21:28)
[2022-09-27] MEDS: amLODIPine 10 MG TAB PO SCH (08:15)
[2022-09-27] MEDS: FLUCONAZOLE 100 MG TAB PO SCH (08:15)
[2022-09-27] MEDS: INDOMETHACIN 25 MG CAP PO SCH ×3 (08:16→21:28)
[2022-09-27 11:05] LABS: African American GFR (CKD) 67.8 (60.0-200.0); Anion Gap 10.2 mmol/L (10.00-18.00); BUN/Creat Ratio 17.59 Ratio (12.00-20.00); Blood Urea Nitrogen 23.4 mg/dL (9.0-27.0); Calcium 7.7 mg/dL (8.7-10.3); Carbon Dioxide 36.9 mmol/L (20.0-27.5); Non-African American GFR(CKD) 58.5 (60.0-200.0); Potassium 4.9 mmol/L (3.5-5.5)
--- NOTE | 2022-09-27 11:31 | P.PN ---
Subjective Progress Note Date: 09/27/22 This is a pleasant super morbidly obese 57-year-old male patient with a known history of hypothyroidism, hypertension, gastroesophageal reflux disease, renal cell carcinoma status post left nephrectomy at [facility] in [place] approximately 2 weeks ago and frequent urinary tract infections most recently with E. coli and was discharged from here September 21 2022 on ceftriaxone. He came back to the emergency again last night instructed by his PCP for complaints of with complaints of malaise and chills with weakness and some confusion. White count 26.0. Hemoglobin 14.1. Platelets 373. Sodium 137. Potassium 4.7. Bicarb 37. BUN 20. Creatinine 1.05. Urinalysis with moderate blood, moderate leukocytes, high WBCs. Culture pending. He is continued on ceftriaxone. Chest x-ray reveals cardiomegaly. No pleural effusion. No pneumothorax. No focal airspace opacities. We were consulted regarding suspected sleep apnea. The patient does have an outside pediatric physical therapist and he did have a sleep study and was told he does have sleep apnea but he's been hospitalized so often that he has not been able to follow-up for obtaining a CPAP machine. His BMI is 63.1 kg per metered squared. The patient is seen today 09/25/2022 in follow-up on the regular medical floor. He is currently sitting up in a chair at the bedside. Awake and alert in no acute distress. Feeling better today compared to yesterday. No worsening shortness of breath, cough or congestion. Currently maintaining good O2 saturations in the mid 90s on 4 L/m per nasal cannula. Afebrile. Hemodynamically stable. He did not end up utilizing BiPAP last night after his discussion with respiratory therapy. He plans to get his settings provided by his pediatric physical therapist that performed a sleep study. Computed tomography scan of the abdomen yesterday was markedly suboptimal. There was some left-sided retroperitoneal fluid which was stable compared to previous. No new well formed thick walled drainable fluid collection or abscess seen. Left-sided renal calculi redemonstrated. White count 15.2. Hemoglobin 14.0. Urine culture pending. Remains on ceftriaxone. The patient is seen today 09/26/2092 in follow-up on the regular medical floor. Again sitting up in a chair at the bedside. Awake and alert in no acute distress. Denies any shortness of breath, cough or congestion. Maintaining O2 saturations in the 90s on 4 L/m per nasal cannula. Afebrile. Hemodynamically stable. Urine culture pending. Remains on ceftriaxone. Oral diuretics. The patient is seen today 09/27/2022 in follow-up on the regular medical floor. He is currently sitting up at the bedside. Awake and alert in no acute distress. Maintaining O2 saturations in the 90s on 4 L/m per nasal cannula. Feeling back to his baseline. No shortness of breath, cough or congestion. No weakness. He had seen been seen by urology who reviewed the CAT scans. Believes the renal mass is necrosis rather than a renal abscess. No plans for urology intervention. Urine culture positive for Jacquelyn only. Sodium 143. Potassium 4.9. Bicarb 37. BUN 23. Creatinine 1.3. Glucose 122. He is continued on ceftriaxone and Diflucan. Oral diuretics. Objective - Vital Signs Vital signs: Vital Signs Temp 97.7 F 09/27/22 08:00 Pulse 69 09/27/22 08:00 Resp 16 09/27/22 02:00 BP 136/86 09/27/22 08:00 Pulse Ox 93 L 09/27/22 08:13 FiO2 30 09/24/22 12:36 Intake & Output 09/26/22 09/27/22 09/27/22 18:59 06:59 18:59 Intake Total 480 Balance 480 Intake: Oral 480 Other: # Voids 1 - Exam GENERAL EXAM: Alert, morbidly obese, 57-year-old male, on 4 L nasal cannula, comfortable in no apparent distress. HEAD: Normocephalic. EYES: Normal reaction of pupils, equal size. NOSE: Clear with pink turbinates. THROAT: No erythema or exudates. NECK: No masses, no JVD. CHEST: No chest wall deformity. LUNGS: Equal air entry with no crackles, wheeze, rhonchi or dullness. CVS: S1 and S2 normal with no audible murmur, regular rhythm. ABDOMEN: No hepatosplenomegaly, normal bowel sounds, no guarding or rigidity. SPINE: No scoliosis or deformity SKIN: No rashes CENTRAL NERVOUS SYSTEM: No focal deficits, tone is normal in all 4 extremities. EXTREMITIES: There is ages of chronic venous stasis, chronic edema. No clubbing, no cyanosis. Peripheral pulses are intact. - Labs CBC & Chem 7: 09/26/22 05:46 09/27/22 06:20 Labs: Abnormal Lab Results - Last 24 Hours (Table) 09/26/22 09/26/22 09/27/22 Range/Units 05:46 16:38 06:20 WBC 17.19 H (4.50-10.00) X 10*3/uL MCH 25.1 L (27.0-32.0) pg MCHC 29.0 L (32.0-37.0) g/dL RDW 15.8 H (11.5-14.5) % MPV 9.1 L (9.5-12.2) fL Metamyelocytes % 2 H (0-0) % Myelocytes % 3 H (0-0) % Neutrophils # (Manual) 12.72 H (2.00-8.90) X 10*3/uL Monocytes # (Manual) 2.23 H (0.20-1.00) X 10*3/uL Carbon Dioxide 36.9 H (20.0-27.5) mmol/L Est GFR (CKD-EPI)NonAf 58.5 L (60.0-200.0) Glucose 122 H (70-110) mg/dL Calcium 7.7 L (8.7-10.3) mg/dL C-Reactive Protein 14.9 H (<1.0) mg/dL Microbiology - Last 24 Hours (Table) 09/23/22 03:40 Urine Culture - Final Urine,Voided Jacquelyn albicans Assessment and Plan Assessment: Generalized weakness, malaise secondary to chronic and ongoing urinary tract infection. Urine culture with Jacquelyn. Currently on ceftriaxone and Diflucan Acute on chronic hypoxemic respiratory failure secondary to acute exacerbation of diastolic congestive heart failure/cor pulmonale Chronic lower extremity edema secondary to above Recent diagnosis of left renal cell carcinoma status post left cryoablation, all details not clear as this was performed at [facility] in [place] Super morbid obesity with BMI of 63 kg per metered square Obstructive sleep apnea, obesity/hypoventilation syndrome and patient has not started any home CPAP/BiPAP therapy Lifelong nonsmoker Recent hospitalization secondary to severe hypothyroidism as the patient was noncompliant with replacement therapy History of thyroid cancer status post thyroidectomy Degenerative joint disease Plan: The patient was seen and evaluated Medications and labs reviewed Stable from the pulmonary standpoint The patient has home oxygen Patient decided to wait on BiPAP until seen in the outpatient setting To follow-up with his own pediatric physical therapist upon discharge I have personally seen and examined the patient, performed the documentation and the assessment and plan as written. Number of minutes spent on the visit: 10.
[2022-09-27 14:11] LABS: HCT 47.9 % (39.6-50.0); HGB 13.6 g/dL (13.0-17.0); MCH 24.7 pg (27.0-32.0); MCHC 28.4 g/dL (32.0-37.0); MCV 87.1 fL (80.0-97.0); Mean Platelet Volume 9.6 fL (9.5-12.2); NRBC Per 100 WBC 0 /100 WBCS (0.0-0.0); Platelet Count 336 X 10*3/uL (140-440); RDW 15.8 % (11.5-14.5); WBC 19.14 X 10*3/uL (4.50-10.00)
[2022-09-27 14:12] LABS: Basophils # (M) 0 X 10*3/uL (0.00-0.10); Eosinophils # (M) 0.96 X 10*3/uL (0.04-0.35); Lymphocytes # (M) 1.91 X 10*3/uL (0.90-5.00); Metamyelocytes % 3 % (0-0); Monocytes # (M) 0.77 X 10*3/uL (0.20-1.00); Myelocytes % 5 % (0-0); Neutrophils # (M) 13.97 X 10*3/uL (2.00-8.90); Neutrophils % (M) 73 %
--- NOTE | 2022-09-27 16:45 | P.PN ---
Subjective Progress Note Date: 09/27/22 Principal diagnosis: E. coli bacteremia and question of left renal abscess Patient is a 57-year old male with a past medical history significant for left renal cell carcinoma history of hypertension hypothyroidism gastroesophageal flux disease with a recent cryotherapy to his left renal cell carcinoma patient subsequently was admitted at this facility from 09/17/2022 till 09/21/2022 patient did have evidence of E. coli bacteremia concerning for possible left-sided renal abscess patient was evaluated by urology and recommended no surgical intervention, discharged on Rocephin and subsequently presented back to the hospital with weakness and worsening symptoms. on today's evaluation that is 09/27/2022 the patient continues to be afebrile, the patient is breathing comfortably currently on 4 L nasal cannula, patient denies having any chest pain worsening cough or sputum production left flank pain has improved no vomiting or diarrhea Objective - Vital Signs Vital signs: Vital Signs Temp 97.7 F 09/27/22 08:00 Pulse 69 09/27/22 08:00 Resp 16 09/27/22 02:00 BP 136/86 09/27/22 08:00 Pulse Ox 93 L 09/27/22 08:13 FiO2 30 09/24/22 12:36 Intake & Output 09/26/22 09/27/22 09/27/22 18:59 06:59 18:59 Intake Total 480 Balance 480 Intake: Oral 480 Other: # Voids 1 - Exam GENERAL DESCRIPTION: Middle-age male up in bed in no distress RESPIRATORY SYSTEM: Unlabored breathing , decreased breath sounds at bases HEART: S1 S2 regular rate and rhythm , ABDOMEN: Soft , no tenderness EXTREMITIES: No edema feet - Labs CBC & Chem 7: 09/27/22 06:20 09/27/22 06:20 Labs: Abnormal Lab Results - Last 24 Hours (Table) 09/26/22 09/27/22 Range/Units 16:38 06:20 Carbon Dioxide 36.9 H (20.0-27.5) mmol/L Est GFR (CKD-EPI)NonAf 58.5 L (60.0-200.0) Glucose 122 H (70-110) mg/dL Calcium 7.7 L (8.7-10.3) mg/dL C-Reactive Protein 14.9 H (<1.0) mg/dL Microbiology - Last 24 Hours (Table) 09/23/22 03:40 Urine Culture - Final Urine,Voided Jacquelyn albicans Assessment and Plan (1) Sepsis secondary to UTI Current Visit: Yes Status: Acute Code(s): A41.9 - SEPSIS, UNSPECIFIED ORGANISM; N39.0 - URINARY TRACT INFECTION, SITE NOT SPECIFIED SNOMED Code(s): 966423407 (2) E coli bacteremia Current Visit: No Status: Acute Priority: High Code(s): R78.81 - BACTEREMIA; B96.20 - UNSP ESCHERICHIA COLI THE CAUSE OF DISEASES CLASSD [facility] SNOMED Code(s): 969595123439 Plan: 1patient was in the hospital generalized weakness pain to the left flank area in this patient with a left renal cell carcinoma with recent cryotherapy at [facility] and did have a E. coli bacteremia likely related to the urinary source that was sensitive to ceftriaxone now with worsening symptoms could be related to possible development of an abscess that may need to be drai lucy in order to control this infection. 2patient did have a CT of the abdomen with contrast mentioned evidence of any drainable abscess, patient has been evaluated by urology recommending no surgical intervention 3-patient has shown some clinical improvement , however the patient noticed to have worsening of his white count may benefit from reevaluation by urology, continue with Rocephin Time with Patient: Less than 30
--- NOTE | 2022-09-27 18:31 | P.PN ---
Subjective Progress Note Date: 09/27/22 This is a 57-year-old male who was recently admitted with changes in mental status, acute metabolic encephalopathy with possible sepsis and UTI. Patient was recently admitted and discharged and sent home on a midline with IV antibiotics in the form of ceftriaxone and infectious disease continues to fol low. Urology also evaluated the patient recommending outpatient follow-up as well as pulmonary as patient continues to require oxygen. Patient reports he does wear oxygen in the outpatient setting and most likely could benefit from a CPAP although does not have and will need pulmonary follow-up outpatient. Patient WBC elevated and will follow-up with repeat labs and continue IV antibiotic therapy. Recommend repeat labs in the a.m. Review of systems: Constitutional: No reports of fatigue, fever, or chills Cardiovascular: No reports of chest pain or palpitations Respiratory: No reports of shortness of breath or cough GI: no reports of nausea, no reports of vomiting, no diarrhea : No reports of dysuria or retention Neurovascular: reports of generalized weakness All medications have been reviewed PHYSICAL EXAMINATION: GENERAL: The patient is alert and oriented x4, Well developed, well nourished. Morbidly obese HEENT: Pupils are round and equally reacting to light. EOMI. no scleral icterus. No conjunctival pallor. Normocephalic, atraumatic. No pharyngeal erythema. No thyromegaly. CARDIOVASCULAR: S1 and S2 muffled PULMONARY: diminished breath sounds bilaterally with no wheezing or rhonchi noted. ABDOMEN: soft. Nontender on exam. obese. non-distended, normoactive bowel sounds. No palpable organomegaly. MUSCULOSKELETAL: No joint swelling or deformity. EXTREMITIES: No cyanosis, clubbing, or pedal edema. Generalized bilateral lower extremity edema with some left suresh redness NEUROLOGICAL: Gross neurological examination did not reveal any focal deficits. Diffuse weakness SKIN: No rashes. Assessment: Change in mental status, with metabolic encephalopathy, multifactorial with features of sepsis present on admission, improved Acute on chronic hypoxic respiratory failure secondary to recent pneumonia History of recent E. coli sepsis and pneumonia Left retroperitoneal fluid connection, ruled out periNephric or renal abscess Jacquelyn in the urine Leukocytosis Possible sleep apnea Morbid obesity with a BMI of 63.1 Hypertension GI prophylaxis DVT prophylaxis Full code Plan: Recommend to continue with current medications of multiple medical consultations following including pulmonary infectious disease. Patient was evaluated by urology and will follow-up outpatient as they do not feel this fluid collection is an abscess in recommending no surgical intervention at this time Patient does have continued elevated white blood count with infectious disease following and maintained on IV antibiotics and will follow-up with repeat labs Patient with generalized edema noted bilaterally although there is some redness and inflammation noted of the left suresh recommend to continue elevating and keeping the area clean and dry Will discuss further with infectious disease and pulmonary about discharge planning Possible discharge in the next 24-48 hours The impression and plan of care has been dictated by Susana Mcgill, nurse practitioner as directed. Dr. Noel MD I have performed a history and examination and MDM of this patient, discussed the same with the dictator, and agree with the dictator's assessment and plan as written ,documented as a scribe. Based on total visit time, I have performed more than 50% of the visit. Any additional findings or plans will be noted. Objective - Vital Signs Vital signs: Vital Signs Temp 97.8 F 09/27/22 11:53 Pulse 62 09/27/22 11:53 Resp 18 09/27/22 11:53 BP 127/78 09/27/22 11:53 Pulse Ox 94 L 09/27/22 11:53 FiO2 30 09/24/22 12:36 Intake & Output 09/26/22 09/27/22 09/27/22 18:59 06:59 18:59 Intake Total 480 Balance 480 Intake: Oral 480 Other: # Voids 1 - Labs CBC & Chem 7: 09/27/22 06:20 09/27/22 06:20 Labs: Abnormal Lab Results - Last 24 Hours (Table) 09/26/22 09/27/22 09/27/22 Range/Units 16:38 06:20 06:20 WBC 19.14 H (4.50-10.00) X 10*3/uL MCH 24.7 L (27.0-32.0) pg MCHC 28.4 L (32.0-37.0) g/dL RDW 15.8 H (11.5-14.5) % Metamyelocytes % 3 H (0-0) % Myelocytes % 5 H (0-0) % Neutrophils # (Manual) 13.97 H (2.00-8.90) X 10*3/uL Eosinophils # (Manual) 0.96 H (0.04-0.35) X 10*3/uL Carbon Dioxide 36.9 H (20.0-27.5) mmol/L Est GFR (CKD-EPI)NonAf 58.5 L (60.0-200.0) Glucose 122 H (70-110) mg/dL Calcium 7.7 L (8.7-10.3) mg/dL C-Reactive Protein 14.9 H (<1.0) mg/dL Microbiology - Last 24 Hours (Table) 09/23/22 03:40 Urine Culture - Final Urine,Voided Jacquelyn albicans
[2022-09-27 20:27] VITALS: RESP 16
[2022-09-27] MEDS: MONTELUKAST 10 MG TAB PO SCH (21:28)
[2022-09-28] MEDS: LEVOTHYROXINE 100 MCG TAB PO SCH (04:45)
[2022-09-28] MEDS: FUROSEMIDE 40 MG TAB PO SCH (11:06)
[2022-09-28] MEDS: allopurinoL 300 MG TAB PO SCH (11:06)
[2022-09-28] MEDS: GABAPENTIN 100 MG CAP PO SCH (11:07)
[2022-09-28] MEDS: INDOMETHACIN 25 MG CAP PO SCH (11:07)
[2022-09-28] MEDS: FLUCONAZOLE 100 MG TAB PO SCH (11:07)
[2022-09-28] MEDS: COLCHICINE 0.6 MG EACH PO SCH (11:07)
[2022-09-28] MEDS: amLODIPine 10 MG TAB PO SCH (11:07)
--- NOTE | 2022-09-28 11:16 | P.PN ---
Subjective Progress Note Date: 09/28/22 This is a pleasant super morbidly obese 57-year-old male patient with a known history of hypothyroidism, hypertension, gastroesophageal reflux disease, renal cell carcinoma status post left nephrectomy at [facility] in [place] approximately 2 weeks ago and frequent urinary tract infections most recently with E. coli and was discharged from here September 21 2022 on ceftriaxone. He came back to the emergency again last night instructed by his PCP for complaints of with complaints of malaise and chills with weakness and some confusion. White count 26.0. Hemoglobin 14.1. Platelets 373. Sodium 137. Potassium 4.7. Bicarb 37. BUN 20. Creatinine 1.05. Urinalysis with moderate blood, moderate leukocytes, high WBCs. Culture pending. He is continued on ceftriaxone. Chest x-ray reveals cardiomegaly. No pleural effusion. No pneumothorax. No focal airspace opacities. We were consulted regarding suspected sleep apnea. The patient does have an outside rn first assistant and he did have a sleep study and was told he does have sleep apnea but he's been hospitalized so often that he has not been able to follow-up for obtaining a CPAP machine. His BMI is 63.1 kg per metered squared. The patient is seen today 09/25/2022 in follow-up on the regular medical floor. He is currently sitting up in a chair at the bedside. Awake and alert in no acute distress. Feeling better today compared to yesterday. No worsening shortness of breath, cough or congestion. Currently maintaining good O2 saturations in the mid 90s on 4 L/m per nasal cannula. Afebrile. Hemodynamically stable. He did not end up utilizing BiPAP last night after his discussion with respiratory therapy. He plans to get his settings provided by his rn first assistant that performed a sleep study. Computed tomography scan of the abdomen yesterday was markedly suboptimal. There was some left-sided retroperitoneal fluid which was stable compared to previous. No new well formed thick walled drainable fluid collection or abscess seen. Left-sided renal calculi redemonstrated. White count 15.2. Hemoglobin 14.0. Urine culture pending. Remains on ceftriaxone. The patient is seen today 09/26/2092 in follow-up on the regular medical floor. Again sitting up in a chair at the bedside. Awake and alert in no acute distress. Denies any shortness of breath, cough or congestion. Maintaining O2 saturations in the 90s on 4 L/m per nasal cannula. Afebrile. Hemodynamically stable. Urine culture pending. Remains on ceftriaxone. Oral diuretics. The patient is seen today 09/27/2022 in follow-up on the regular medical floor. He is currently sitting up at the bedside. Awake and alert in no acute distress. Maintaining O2 saturations in the 90s on 4 L/m per nasal cannula. Feeling back to his baseline. No shortness of breath, cough or congestion. No weakness. He had seen been seen by urology who reviewed the CAT scans. Believes the renal mass is necrosis rather than a renal abscess. No plans for urology intervention. Urine culture positive for Jacquelyn only. Sodium 143. Potassium 4.9. Bicarb 37. BUN 23. Creatinine 1.3. Glucose 122. He is continued on ceftriaxone and Diflucan. Oral diuretics. The patient is seen today 09/28/2022 in follow-up on the regular medical floor. He is currently sitting up in bed. Awake and alert in no acute distress. He denies any worsening shortness of breath, cough or congestion. No fever or chills. Blood cultures revealed no growth. Urine culture positive for Jacquelyn. Lab results pending for today. Infectious disease following the white cell count. He is continued on ceftriaxone. Objective - Vital Signs Vital signs: Vital Signs Temp 98.6 F 09/28/22 07:40 Pulse 68 09/28/22 07:40 Resp 16 09/28/22 07:40 BP 101/69 09/28/22 07:40 Pulse Ox 95 09/28/22 08:41 FiO2 30 09/24/22 12:36 Intake & Output 09/27/22 09/28/22 09/28/22 18:59 06:59 18:59 Intake Total 1072 Balance 1072 Intake: Oral 1072 Other: # Voids 3 3 # Bowel Movements 1 - Exam GENERAL EXAM: Alert, morbidly obese, 57-year-old male, sitting up in bed, on 4 L nasal cannula, comfortable in no apparent distress. HEAD: Normocephalic. EYES: Normal reaction of pupils, equal size. NOSE: Clear with pink turbinates. THROAT: No erythema or exudates. NECK: No masses, no JVD. CHEST: No chest wall deformity. LUNGS: Equal air entry with no crackles, wheeze, rhonchi or dullness. CVS: S1 and S2 normal with no audible murmur, regular rhythm. ABDOMEN: No hepatosplenomegaly, normal bowel sounds, no guarding or rigidity. SPINE: No scoliosis or deformity SKIN: No rashes CENTRAL NERVOUS SYSTEM: No focal deficits, tone is normal in all 4 extremities. EXTREMITIES: There is ages of chronic venous stasis, chronic edema. No clubbing, no cyanosis. Peripheral pulses are intact. - Labs CBC & Chem 7: 09/27/22 06:20 09/27/22 06:20 Labs: Abnormal Lab Results - Last 24 Hours (Table) 09/27/22 Range/Units 06:20 WBC 19.14 H (4.50-10.00) X 10*3/uL MCH 24.7 L (27.0-32.0) pg MCHC 28.4 L (32.0-37.0) g/dL RDW 15.8 H (11.5-14.5) % Metamyelocytes % 3 H (0-0) % Myelocytes % 5 H (0-0) % Neutrophils # (Manual) 13.97 H (2.00-8.90) X 10*3/uL Eosinophils # (Manual) 0.96 H (0.04-0.35) X 10*3/uL Microbiology - Last 24 Hours (Table) 09/26/22 16:46 Blood Culture - Preliminary Blood No Growth after 24 hours Assessment and Plan Assessment: Generalized weakness, malaise secondary to chronic and ongoing urinary tract infection. Urine culture with Jacquelyn. Currently on ceftriaxone and Diflucan Acute on chronic hypoxemic respiratory failure secondary to acute exacerbation of diastolic congestive heart failure/cor pulmonale Chronic lower extremity edema secondary to above Recent diagnosis of left renal cell carcinoma status post left cryoablation, all details not clear as this was performed at [facility] Super morbid obesity with BMI of 63 kg per metered square Obstructive sleep apnea, obesity/hypoventilation syndrome and patient has not started any home CPAP/BiPAP therapy Lifelong nonsmoker Recent hospitalization secondary to severe hypothyroidism as the patient was noncompliant with replacement therapy History of thyroid cancer status post thyroidectomy Degenerative joint disease Plan: The patient was seen and evaluated Medications and labs reviewed Stable from the pulmonary standpoint The patient has home oxygen Cleared for discharge once cleared by ID services I have personally seen and examined the patient, performed the documentation and the assessment and plan as written. Number of minutes spent on the visit: 10.
[2022-09-28 11:25] LABS: ALT 11 U/L (10-49); AST 21 U/L (14-35); African American GFR (CKD) 73.8 (60.0-200.0); Albumin 2.7 g/dL (3.8-4.9); Albumin/Globulin Ratio 0.93 (1.60-3.17); Alkaline Phosphatase 102 U/L (41-126); BUN/Creat Ratio 16.94 Ratio (12.00-20.00); Calcium 7.4 mg/dL (8.7-10.3); Chloride 96 mmol/L (96-109); Globulin 2.9 g/dL (1.6-3.3); Glucose 127 mg/dL (70-110); Non-African American GFR(CKD) 63.7 (60.0-200.0); Potassium 4.4 mmol/L (3.5-5.5); Sodium 142 mmol/L (135-145); Total Bilirubin <0.15 mg/dL (0.30-1.20); Total Protein 5.5 g/dL (6.2-8.2)
[2022-09-28 12:08] LABS: HCT 44.2 % (39.6-50.0); HGB 12.8 g/dL (13.0-17.0); MCH 25.4 pg (27.0-32.0); MCV 87.7 fL (80.0-97.0); Mean Platelet Volume 9.6 fL (9.5-12.2); NRBC Per 100 WBC 0 /100 WBCS (0.0-0.0); Platelet Count 294 X 10*3/uL (140-440); RBC 5.04 X 10*6/uL (4.40-5.60); RDW 15.9 % (11.5-14.5); WBC 16.32 X 10*3/uL (4.50-10.00)
[2022-09-28 13:02] LABS: Basophils # (M) 0.16 X 10*3/uL (0.00-0.10); Eosinophils # (M) 0.33 X 10*3/uL (0.04-0.35); Lymphocytes # (M) 0.65 X 10*3/uL (0.90-5.00); Metamyelocytes % 1 % (0-0); Monocytes # (M) 1.14 X 10*3/uL (0.20-1.00); Myelocytes % 3 % (0-0); Neutrophils # (M) 13.38 X 10*3/uL (2.00-8.90); Neutrophils % (M) 82 %; RBC Morphology NORMAL
[2022-09-28 13:40] VITALS: BP 110/68; PULSE 67; TEMP 98.5
== END 2022-09-28 17:02 | disposition home health service (06) | DRG 720 ==
LOC: EC 23:03 → 5NMEDONC 09-24 02:54
PROVIDERS: ADMIT Hospitalist; ATTEND Hospitalist
DX: A41.51 Sepsis due to Escherichia coli [E. coli] (principal); B37.7 Candidal sepsis; E89.0 Postprocedural hypothyroidism; E66.2 Morbid (severe) obesity with alveolar hypoventilation; M19.90 Unspecified osteoarthritis, unspecified site; I11.0 Hypertensive heart disease with heart failure; I50.33 Acute on chronic diastolic (congestive) heart failure; I87.8 Other specified disorders of veins; G47.33 Obstructive sleep apnea (adult) (pediatric); G93.41 Metabolic encephalopathy; Z79.890 Hormone replacement therapy; J96.21 Acute and chronic respiratory failure with hypoxia; I27.81 Cor pulmonale (chronic); Z68.44 Body mass index [BMI] 60.0-69.9, adult; Z79.899 Other long term (current) drug therapy; Z85.528 Personal history of other malignant neoplasm of kidney; Z85.850 Personal history of malignant neoplasm of thyroid; Z87.01 Personal history of pneumonia (recurrent); Z87.440 Personal history of urinary (tract) infections; Z91.199 Patient's noncompliance with other medical treatment and regimen due to unspecified reason; Z88.0 Allergy status to penicillin
CPT/HCPCS: 36415; 71045; 74160; 80048; 80053; 81001; 83605; 83735; 84443; 85025; 86140; 86850; 86900; 86901; 87040; 87086; 93005; 94760; 99285